=== PATIENT | female | born 1935 | race Caucasian/White ===

== ENCOUNTER 2017-02-15 13:41 | Inpatient (IN) | payer MEDICARE ==
[2017-02-15] MEDS ORDERED: Calcium Gluc 4.6 MEQ/10 ML (100 MG/ML) ONE (13:54)
[2017-02-15] MEDS ORDERED: Sodium Bicarb 50 MEQ/50 ML Abboject 8.4% SYRINGE ONE (14:00)
[2017-02-15 14:13] LABS: Anion Gap 14 mmol/L (-14-95); Lactate 2.04 mmol/L (0.50-2.20); POC Est. GFR-MDRD-African-Amer 34; POC Estimated GFR-MDRD 28; T. Carbon Dioxide 19.4 mmol/L (1.0-85.0); pH (Venous) 7.272 (7.35-7.45); vO2 Saturation-calc 90.5 % (0.0-100.0)
[2017-02-15 14:21] LABS: #Monocytes 0.5 thou/uL (0.11-0.59); #Neutrophils 9.3 thou/uL (1.40-6.50); %Basophils 0.4 % (0.0-1.0); %Eosinophils 0.4 % (0.0-10.0); %Lymphocytes 9.3 % (21.0-51.0); %Monocytes 4.7 % (0.0-10.0); Hematocrit 33.3 % (36.0-47.0); Mean Platelet Volume 9.4 fL (7.4-10.4); Red Blood Cell (RBC) Count 3.33 mill/uL (4.20-5.40); White Blood Cell (WBC) Count 10.9 thou/uL (4.8-10.8)
--- NOTE | 2017-02-15 14:41 | RAD ---
CHEST ONE VIEW: Comparison: 06-03-15 History: Chest pain. FINDINGS: Portable upright chest demonstrates a left sided transvenous defibrillator with lead position in the right atrium, right ventricle and coronary sinus. Heart is enlarged. Pulmonary vessels are prominent. Diffuse interstitial and alveolar opacities. There is no pneumothorax or pleural effusion. IMPRESSION: Congestive heart failure. POS: [facility] [place]
[2017-02-15 14:43] LABS: Lactic Acid - Sepsis 2.9 mmol/L (0.5-2.2)
[2017-02-15 14:47] LABS: ALT (SGPT) 20 U/L (8-55); AST (SGOT) 19 U/L (5-34); Alkaline Phosphatase 64 U/L (40-150); Anion Gap 14 mmol/L (10-20); BUN (Urea Nitrogen) 61 mg/dL (9.8-20.1); Bilirubin, Total 0.4 mg/dL (0.2-1.2); CK (CPK) 47 U/L (29-168); Calc. Creatinine Clearance 0 mL/min (70-130); Calcium 8.3 mg/dL (7.8-10.44); Carbon Dioxide 21 mmol/L (23-31); Chloride 103 mmol/L (98-107); Estimated GFR-MDRD 25; Globulin 2.6 g/dL (2.4-3.5); Lipase 22 U/L (8-78); Protein, Total 5.8 g/dL (6.0-8.3)
[2017-02-15] MEDS ORDERED: Amiodarone HCl 450 MG, Admixture Fee 1 EACH in Dextrose 5% in Water 250 ML IVPB SCH ×3 (15:00)
--- NOTE | 2017-02-15 17:05 | HP ---
PRIMARY CARE PHYSICIAN: Marbin Vieira M.D. REASON FOR ADMISSION: Ventricular tachycardia. HISTORY OF PRESENT ILLNESS: An 81-year-old female who has cardiomyopathy with EF 15% to 20% with AIC D in place as well as moderate tricuspid regurgitation and severe mitral regurgitation. She was brou ght to emergency room with ventricular tachycardia. Patient reports that this morning, she had an appointment with infertility medical assistant. She finished that appoi ntment and she was told that everything was good and subsequently after going from grocery store, she went to her home. At that time, patient was not feeling good on the way to go home. She was feelin g weakness, somehow she made to go her home. She ate her cereal breakfast and she took all her medic ations. Subsequently acutely, she felt all over weakness. She was feeling chest tightness. She was feeling shortness of breath and dizziness and weak. She was not having any energy and that is why s he called her neighbor and neighbor came to her home and they called paramedics. The paramedics came to her home. At that time, she was found with ventricular tachycardia and parame dics attempted vagal maneuver and adenosine, but unable to convert. Subsequently, she was brought to emergency room. This patient has pacemaker and defibrillator. In the emergency room, patient was in ventricular tach ycardia. She was hypotensive. She was hypoxic and Cardiology was consulted and Cardiology cardiover shavonne to sinus rhythm at bedside. Dr. Gomez already saw this patient and Dr. Gomez wanted to observe her in CCU. When I saw this patient at that time, patient was hemodynamically stable. She only complains that she has dyspnea o n exertion which is not new. She also gained several pounds of weight. She also reports orthopnea. She denies any PND. She denies any cough. She denies any fever, chills or flu-like illness. She d enies any constipation or diarrhea. The patient does have problems with hemorrhoid and recently her primary care physician prescribed hemorrhoidal cream and that was helping. She is using oxygen durin g night time. REVIEW OF SYSTEMS: The following complete review of systems was negative, unless otherwise mentioned in the HPI or below: Constitutional: Weight loss or gain, ability to conduct usual activities. Sk in: Rash, itching. Eyes: Double vision, pain. ENT/Mouth: Nose bleeding, neck stiffness, pain, te nderness. Cardiovascular: Palpitations, dyspnea on exertion, orthopnea. Respiratory: Shortness of breath, wheezing, cough, hemoptysis, fever or night sweats. Gastrointestinal: Poor appetite, abdom inal pain, heartburn, nausea, vomiting, constipation, or diarrhea. Genitourinary: Urgency, frequenc y, dysuria, nocturia. Musculoskeletal: Pain, swelling. Neurologic/Psychiatric: Anxiety, depressio n. Allergy/Immunologic: Skin rash, bleeding tendency. Please see my HPI for pertinent positives and negatives. All other review of systems reviewed and ne gative except as mentioned in the HPI. ALLERGIES: BENZOYL PEROXIDE. CURRENT HOME MEDICATIONS: Synthroid 300 mcg p.o. daily, metformin 1000 mg p.o. b.i.d., Coreg 25 mg t wice daily, Eliquis 5 mg p.o. b.i.d., ferrous sulfate 325 mg p.o. daily, Lasix 20 mg p.o. daily, tram adol 50 mg q.8 hourly p.r.n. PAST MEDICAL HISTORY: Ischemic cardiomyopathy with EF 15%-20%, moderate tricuspid regurgitation, sev ere mitral regurgitation, pulmonary hypertension, chronic systolic diastolic heart failure, recurrent ventricular tachycardia, diabetes type 2, hypertension, hypothyroidism, morbid obesity, and physical deconditioning. PAST PSYCHIATRIC HISTORY: Reviewed and negative. PAST SURGICAL HISTORY: AICD placement, left carotid endarterectomy, tubal ligation, and cholecystect lisa. SOCIAL HISTORY: Patient is a former smoker. She quit smoking more than 10 years ago. She denies an y alcohol or other illicit drug abuse. FAMILY HISTORY: Coronary artery disease runs among several family members. No strong family history of cancer or stroke. EMERGENCY ROOM COURSE: Patient is given amiodarone. Patient is given calcium gluconate 3 ampules, s odium bicarbonate and IV fluid. PHYSICAL EXAMINATION: VITAL SIGNS: On arrival, blood pressure 61/36, pulse 129, respiratory rate 21, saturation 93% on 2 l iter oxygen, weight 115.6 kilograms. GENERAL: Patient is currently alert, awake, appears weak. No obvious acute distress, currently bloo d pressure improved. HEENT: Head, normocephalic, atraumatic. Eyes: Pupils round, reactive to light. Extraocular muscle intact. ENT: Oropharynx within normal limits. Moist mucous membranes, no oral lesions, no pharyngeal erythe ma, no exudate. NECK: Supple, no JVD, no thyromegaly, no carotid bruits. LUNGS: Few coarse breath sounds heard. Few basal rales noted. No wheeze, no rhonchi. CARDIAC: S1, S2 appears slightly irregular. Systolic murmur noted at the parasternal area. No gall op, no rub. ABDOMEN: Morbid obesity limiting examination. Bowel sounds present. No peritoneal signs, no guardi ng, no rigidity, no rebound, no suprapubic tenderness. BACK: No CVA tenderness. EXTREMITIES: Upper extremity passive movement of all joints are normal. Lower extremity passive mov ement of all joints are normal. SKIN: No skin rash. Dry skin. HEMATOLOGIC: No lymphadenopathy. PSYCHIATRIC: Normal affect. NEUROLOGIC: Grossly nonfocal examination. She is moving all 4 limbs. SIGNIFICANT LABORATORY DATA: EKG initially showed ventricular tachycardia with rate of 129, nonspeci fic intraventricular conduction delay. Repeat EKG showed pacemaker rhythm. Chest x-ray showed findi ngs suggestive of congestive heart failure. CBC: WBC 10.9, hemoglobin 10.6, platelets 167, MCV 100. INR 1.3. VBG: pH 7.27, bicarbonate 18.2 CO2 39.4, O2 67.4. BMP: Sodium 140, potassium 3.1, chlo ride 108, carbon dioxide 21, BUN 61, creatinine 1.93, glucose 241, calcium 8.3. LFT: AST 19, ALT 20 , alkaline phosphatase 64, albumin 3.2, lipase 22, CK 47, CK-MB 1.1, troponin I 0.050, BNP 162.5. ASSESSMENT AND PLAN: 1. Acute ventricular tachycardia. Currently, converted to pacemaker rhythm with hemodynamic comprom ise. 2. Hypotension, likely due to ventricular tachycardia, improved. 3. Severe cardiomyopathy with ejection fraction 15%-20% with AICD in place. 4. Moderate tricuspid regurgitation. 5. Severe mitral regurgitation. 6. Chronic kidney disease stage 3. 7. Demand ischemia of myocardium. 8. Lactic acidosis due to hypoperfusion. 9. Anemia with macrocytosis. 10. Chronic anticoagulation. 11. Hypokalemia, rule out hypomagnesemia. 12. Morbid obesity. 13. Hypothyroidism. 14. History of hypertension, but currently low blood pressure. 15. History of recurrent ventricular tachycardia. PLAN: 1. The patient will be admitted to CCU/IMCU as per Cardiology recommendation. Amiodarone drip will be continued as per protocol treatment. We will resume patient's elected home medications including Eliquis 5 mg b.i.d., aspirin 325 mg p.o. daily, Coreg 25 mg twice daily if blood pressure permits. W e will also resume Synthroid 300 mcg p.o. daily. We will also resume metformin 1000 mg twice daily a s well as insulin as per sliding scale per protocol. 2. Deep venous thrombosis prophylaxis. The patient is already on chronic anticoagulation with Eliqu is therapy. 3. Gastrointestinal prophylaxis, Pepcid 20 mg p.o. b.i.d. CODE STATUS: I just discussed one more time code status with her. Initially, she said something in the emergency room that she does not want to be CPR or intubation, but when I clarified with her at t hat time she said that if there are chances of survival, then she wanted to be tried like a shock or CPR, but she also expressed that she does not want poor quality of life and she does not want to be o n machine forever, but at least in case if other doctors thinks that she has chances of survival in t hat situation she wanted to try to survive her back to normal life if possible, so we are requesting full code status.
[2017-02-15 17:27] LABS: Bilirubin Negative (Negative); Blood, Urine Small (Negative); Glucose, Urine (Dipstick) Negative (Negative); Ketone, Urine Negative (Negative); Nitrite Negative (Negative); Protein, Urine (Dipstick) 100 mg/dL (Neg-Trace); Urobilinogen 0.2 mg/dL (0.2-1.0)
[2017-02-15 17:29] LABS: Hyaline Casts/LPF 7-10 HYALINE CAST LPF (0-3 Hyaline); Squamous Epithelial 21-50 HPF (0-3)
[2017-02-15 17:44] LABS: Bacteria/HPF 4+ HPF (None Seen); RBC/HPF 0-3 HPF (0-3); Yeast-All Forms None Seen HPF (None Seen)
--- NOTE | 2017-02-15 18:48 | CON ---
DATE OF CONSULTATION: 02/15/2017 REASON FOR CONSULTATION: Wide complex tachycardia. PHYSICIAN REQUESTING CONSULTATION: Kendall Gomez M.D. HISTORY OF PRESENT ILLNESS: Elena Paige is an 81-year-old white woman. She has a history of known cardiomyopathy and known ventricular arrhythmias with ventricular dyssynchrony. She has a resynchron ization defibrillator which was revised as recently as 2014. She came in to the hospital today with hypotension and lightheadedness. She was not syncopal. She was found to be in wide complex rhythm c onsistent with VT. Her defibrillator was interrogated confirming the diagnosis if the VT was occurri ng at 130 beats a minute, which is below the detection cut off for the device, so fell in the monitor zone. The VT was easily pace terminated with 4 paced beats just faster than the detected cycle john th. She is still somewhat hypotensive in the emergency room, but her symptoms are largely resolved. CURRENT MEDICATIONS: See updated list in chart. She has previously been on amiodarone for antiarrhy thmic suppression. Currently, she denies taking amiodarone. She is on appropriate heart failure med ications. FAMILY HISTORY: Significant for coronary artery disease, hypertension, and diabetes. SOCIAL HISTORY: The patient does not smoke, drink heavily or use illicit drugs. REVIEW OF SYSTEMS: Negative 10-point except as outlined in the HPI. PHYSICAL EXAMINATION: VITAL SIGNS: Blood pressure 87/60, pulse is 80 and regular, respirations are 22 and not labored. GENERAL: This is an elderly woman lying in the gurney in the emergency room in no acute distress. HEENT: Shows extraocular muscles are intact. Oropharynx is moist. NECK: Supple. There is no obvious JVD, although exam is difficult because of size. HEART: Demonstrates somewhat faint heart sounds, normal S1, S2. There is a 1/6 holosystolic murmur heard best at the apex. LUNGS: Clear as best can tell, patient cannot sit up for proper examination, but there are no obviou s rales and breath sounds are symmetric. ABDOMEN: Soft, no tenderness or guarding. EXTREMITIES: Show brawny edema. SKIN: Warm and dry. NEUROLOGIC EXAM: Grossly nonfocal. LABORATORY AND X-RAY FINDINGS: Electrocardiogram following termination demonstrates pacing in both t he atrium and the ventricle with biventricular pacing and capture. Device interrogation was reviewed , confirming the patient had relatively slow VT occurring just below the detection cut off for the de vice. The device was reprogrammed to account for this and to treat this with antitachycardia pacing. IMPRESSION: Sustained ventricular tachycardia below the detection cut off for the device. This has led to the patient's decompensation. This has been pace terminated and the programming has been lacey ged to reflect this slower ventricular tachycardia to allow for automatic therapy for this device. RECOMMENDATIONS: 1. Reprogram the device as described above. 2. We will follow as needed if any further arrhythmias occur.
[2017-02-15] MEDS ORDERED: Amiodarone HCl 450 MG in Dextrose 5% in Water 250 ML IVPB SCH ×2 (19:09)
[2017-02-15] MEDS ORDERED: traMADol HCl 50 MG TAB PO PRN (19:09)
[2017-02-15] MEDS ORDERED: Mag-Al 1200 mg/1200 mg/30 ML UDCUP PO PRN (19:09)
[2017-02-15] MEDS ORDERED: Dextrose 5% in Water 1,000 ML IV PRN (19:09)
[2017-02-15] MEDS ORDERED: Milk Of Magnesia 30 ML UDCUP PO PRN (19:09)
[2017-02-15] MEDS ORDERED: HumaLOG 300 UNITS/3 ML VIAL SC PRN ×2 (19:09)
[2017-02-15] MEDS ORDERED: Dextrose 50% Abboject 50 ML SYRINGE SLOW IVP PRN (19:09)
[2017-02-15] MEDS ORDERED: Diabetic Tussin 200 MG/10 ML UDCUP PO PRN (19:09)
[2017-02-15] MEDS ORDERED: Sodium Chloride 0.65% Nasal 44 ML BOT EA NARE PRN (19:09)
[2017-02-15] MEDS ORDERED: Artificial Tears 18 DROP/0.9 ML EA EYE PRN (19:09)
[2017-02-15] MEDS ORDERED: Nitroglycerin 0.4 MG TAB (25 Tab Bottle) SL PRN (19:09)
[2017-02-15] MEDS ORDERED: Chloraseptic Spray 180 ml Bottle PO PRN (19:09)
[2017-02-15] MEDS ORDERED: Senokot 8.6 MG TAB PO PRN (19:09)
[2017-02-15] MEDS ORDERED: Eucerin (Mineral Oil/Petrolatum,White) 30 gm Jar TOP PRN (19:09)
[2017-02-15] MEDS ORDERED: HYDROcodone/Acetaminophen 5/325 mg Tablet PO PRN (19:09)
[2017-02-15] MEDS ORDERED: Zolpidem Tartrate 5 MG TAB PO PRN (19:09)
[2017-02-15] MEDS ORDERED: Loperamide HCl 2 MG CAP PO PRN (19:09)
[2017-02-15] MEDS ORDERED: Loratadine 10 MG TAB PO PRN (19:09)
[2017-02-15] MEDS ORDERED: hydrALAZINE 20 MG/ML VIAL SLOW IVP PRN (19:09)
[2017-02-15 19:11] LABS: Troponin I 0.406 ng/mL (< 0.028)
--- NOTE | 2017-02-15 20:43 | CON ---
DATE OF CONSULTATION: 02/15/2017 CRITICAL CARE NOTE HISTORY OF PRESENT ILLNESS: Patient is an 81-year-old woman who presented with acute onset of diaphoresis, chest discomfort, and dyspnea. The patient has a previous history of a cardiomyopathy. The patient previously had placement of an automatic implantable cardiac defibrillator in 09/2014. The patient has also with a history of atrial fibrillation is on a chronic anticoagulation therapy. The patient has previously been admitted with wide complex thought to be a ventricular tachycardia. She was in her usual state of health when she suddenly again developed rapid palpitations and dyspnea. She presented to the emergency room with a rapid heart rate. PAST MEDICAL HISTORY: 1. Significant for cardiomyopathy. 2. Hypertension. 3. Diabetes mellitus. 4. Hypercholesterolemia. PAST SURGICAL HISTORY: Cholecystectomy. SOCIAL HISTORY: Nonsmoker. FAMILY HISTORY: Positive family history of coronary artery disease. ALLERGIES: None. PHYSICAL EXAMINATION: GENERAL: This is an ill-appearing woman who is hypotensive, blood pressure is 70/50. NECK: Showed no jugular venous distention. LUNGS: Clear to auscultation. HEART: Regular rate and rhythm. Normal S1, S2. ABDOMEN: Distended. EXTREMITIES: Showed mild bilateral edema. LABORATORY STUDIES: Her sodium is 134, potassium 3.5, chloride 103, bicarbonate 21, BUN 61, creatinine is 1.9, troponin was 0.05. BNP 162. Her EKG revealed ventricular tachycardia with a rate of approximately 130. IMPRESSION: 1. Ventricular tachycardia. 2. History of severe cardiomyopathy. 3. Hypertension. 4. Diabetes mellitus. 5. Hypercholesterolemia. This patient presented hypotensive with chest discomfort. She underwent an emergent cardioversion through the automatic implantable cardiac defibrillator. The patient converted to sinus rhythm. Her blood pressure improved. The patient will be monitored in the ICU. IV amiodarone has been started. We will follow this patient with you throughout her hospitalization. We will ask EP to further evaluate. Critical care time 30 minutes. SUKH
[2017-02-15] MEDS ORDERED: Famotidine 20 MG TAB PO SCH (21:00)
[2017-02-15] MEDS: Apixaban 5 MG TAB PO SCH (21:27)
[2017-02-15 21:33] LABS: Troponin I 1.484 ng/mL (< 0.028)
[2017-02-15 21:42] VITALS: BMI 40.2
--- NOTE | 2017-02-15 21:49 | OP ---
PROCEDURE: Electrocardioversion INDICATION: An 81-year-old woman with ventricular tachycardia. PROCEDURE: The patient was pace terminated through her automatic internal implantable cardiac defibrillator and converted to normal sinus rhythm. IMPRESSION: Successful electrocardioversion through the defibrillator. SUKH
--- NOTE | 2017-02-15 22:22 | ADD-ER ---
ADDENDUM DATE OF SERVICE: 02/15/2017 Please refer to the patient's electronic medical record for further details of her visit. In short, the patient presents with a wide complex tachycardia and generalized weakness with associat ed dyspnea. Her blood pressure was in the 60s-70s systolic, though she was awake and alert and able to answer questions. She had palpable peripheral pulses, though they were weak. Because her rate was relatively slow in t he 125-130 range, a consideration was given to the possibility of acute acidosis and/or hyperkalemia as causative. Because of this, the patient was given calcium and bicarbonate. Bedside labs were freeman cked, which showed a mild acidosis with a normal potassium. Record review revealed a similar episode in the past. The patient reports that she does have an AICD, though it is not fired. Just prior to performing cardioversion because of an unstable tachycardia, Dr. Gomez arrived to [facility] patient's bedside and I elected to perform cardioversion via her defibrillator. This was performed by the pacemaker technologist with conversion to an appropriately paced rhythm. Her blood pressure immediately improved, as did her symptoms. She is not septic or toxic appearing, and I did not find evidence of an underlying infectious process. Her lactate is mildly elevated, which is likely due to her hypotension, which likely persisted for several hours prior to arrival. Additionally, her chest x-ray reveals congestive heart failure, which she has a history of, and was likely exacerbated by he r dysrhythmia. She was admitted to the ICU in stable condition, though with a guarded prognosis.
[2017-02-16 01:04] LABS: Troponin I 2.287 ng/mL (< 0.028)
[2017-02-16 05:03] LABS: #Eosinphils 0.1 thou/uL (0.0-0.7); #Lymphocytes 1.4 thou/uL (1.20-3.40); #Monocytes 0.6 thou/uL (0.11-0.59); #Neutrophils 5.1 thou/uL (1.40-6.50); %Basophils 0.2 % (0.0-1.0); %Eosinophils 0.9 % (0.0-10.0); %Lymphocytes 19.4 % (21.0-51.0); %Monocytes 8.7 % (0.0-10.0); Hematocrit 33.2 % (36.0-47.0); Mean Platelet Volume 9.9 fL (7.4-10.4); Red Blood Cell (RBC) Count 3.36 mill/uL (4.20-5.40); White Blood Cell (WBC) Count 7.1 thou/uL (4.8-10.8)
[2017-02-16 05:30] LABS: Anion Gap 13 mmol/L (10-20); BUN (Urea Nitrogen) 68 mg/dL (9.8-20.1); Calc. Creatinine Clearance 38 mL/min (70-130); Calcium 8.8 mg/dL (7.8-10.44); Carbon Dioxide 25 mmol/L (23-31); Chloride 103 mmol/L (98-107); Cholesterol 133 mg/dl (< 200 Desired); Estimated GFR-MDRD 21; LDL Cholesterol, Calculated 73 mg/dL; Magnesium 1.7 mg/dL (1.6-2.6); Phosphorus 4.6 mg/dL (2.3-4.7)
[2017-02-16] MEDS ORDERED: Levothyroxine Sodium 100 MCG TAB PO SCH (06:00)
[2017-02-16] MEDS ORDERED: metFORMIN 500 MG TAB PO SCH (08:00)
[2017-02-16] MEDS ORDERED: cefTRIAXone\\ROCEPHIN 1 GM in Sodium Chloride 0.9% 100 ML IVPB SCH (08:15)
[2017-02-16] MEDS: Cyanocobalamin (Vitamin B-12) 1,000 MCG TAB PO SCH (08:53)
[2017-02-16] MEDS: Apixaban 5 MG TAB PO SCH ×2 (08:53→21:46)
[2017-02-16] MEDS: Folic Acid 1 MG TAB PO SCH (08:53)
[2017-02-16] MEDS: Pantoprazole 40 MG GRANULES PACKET PO SCH ×2 (08:53→08:56)
[2017-02-16] MEDS: Ascorbic Acid 500 mg Chewable Tablet PO SCH (08:54)
[2017-02-16] MEDS: Ferrous Sulfate 325 MG TAB PO SCH (08:54)
[2017-02-16] MEDS ORDERED: Pravastatin Sodium 20 MG TAB PO SCH (09:00)
[2017-02-16] MEDS ORDERED: Non-Formulary Item 1 EACH (Metoprolol Succinate [Metoprolol Succinate] 25 MG) PO SCH (09:00)
[2017-02-16] MEDS ORDERED: Non-Formulary Item 1 EACH (Sacubitril/Valsartan [Entresto 24 Mg-26 Mg Tablet] 1 TAB) PO SCH (09:00)
[2017-02-16] MEDS ORDERED: ASCORBIC ACID 500 MG PO SCH (09:00)
[2017-02-16] MEDS ORDERED: cefTRIAXone\\ROCEPHIN 1 GM, Syringe 0.4 ML in Sterile Water 9.6 ML SLOW IVP SCH (09:00)
[2017-02-16] MEDS: Sacubitril 24.5 MG/Valsartan 25.5 MG TABLET PO SCH ×2 (10:15→21:47)
--- NOTE | 2017-02-16 11:34 | CON ---
DATE OF CONSULTATION: 02/16/2017 CONSULTING PHYSICIAN: Hospitalist Group REASON FOR CONSULTATION: [facility] admission. HISTORY OF PRESENT ILLNESS: Ms. Paige is an 81-year-old female who was admitted last night with pranav tricular tachycardia. She has a known history of cardiomyopathy with an EF of 15-20%. She has a def ibrillator in place that did not go off yesterday. Apparently she spontaneously converted to sinus r hythm while in the emergency room. She was placed in the Intermediate Care last night. She is not e xperiencing shortness of breath or palpitations at this time. PAST MEDICAL HISTORY: 1. Cardiomyopathy. 2. Valvular heart disease 3. Chronic diastolic and systolic heart failure. 4. Ventricular tachycardia. 5. Diabetes mellitus type 2. 6. Hypertension. 7. Hypothyroidism. 8. Morbid obesity. PAST SURGICAL HISTORY: 1. AICD placement. 2. Left carotid endarterectomy. 3. Tubal ligation. 4. Cholecystectomy. SOCIAL HISTORY: Quit smoking more than 10 years ago. Does not consume alcohol. FAMILY MEDICAL HISTORY: Remarkable for coronary artery disease. REVIEW OF SYSTEMS: Otherwise, negative. MEDICATIONS PRIOR TO ADMISSION: Synthroid, metformin, Coreg, Eliquis, iron sulfate, Lasix and tramad ol. PHYSICAL EXAMINATION: VITAL SIGNS: Temperature 98.2, pulse 70, respirations 18, O2 sat 100%, blood pressure 134/62. HEENT: Unremarkable. NECK: No JVD. LUNGS: Clear without wheezing. CARDIAC: S1, S2 regular, pacemaker left upper quadrant. ABDOMEN: Soft, nontender. EXTREMITIES: No edema. LABORATORY DATA: White blood cell count 7.1, hematocrit 33.2, platelet count 120. Sodium 137, potas sium 3.5, BUN 68, creatinine 2.2, glucose 105, troponin 2.8. TSH 14.9. ASSESSMENT: 1. No active pulmonary problems. 2. V-tach with spontaneous conversion. 3. History of ventricular tachycardia. 4. Mildly hypothyroid. 5. Multiple other medical problems. PLAN: She can be transferred to the floor. Further care per Cardiology and Internal Medicine.
--- NOTE | 2017-02-16 11:57 | PDOC.CTH ---
<Shannan Enriquez - Last Filed: 02/16/17 11:53> Cardiology Progress Note - Subjective The pt seen and examined. No overnight events. No cardiac complaints. Up to chair without any difficulties. Complains of chronic back pain. - Objective Vital Signs Temp Pulse Resp BP Pulse Ox 02/16/17 11:22 97.9 F 63 18 121/31 L 97 02/16/17 08:00 98.2 F 70 18 100 02/16/17 07:51 98.2 F 70 18 134/62 100 02/16/17 04:00 98.4 F 61 16 108/44 L 100 02/16/17 00:00 98.1 F 61 16 110/52 L 99 Weight 256 lb 12.8 oz 02/15/17 02/16/17 02/17/17 06:59 06:59 06:59 Intake Total 300 Output Total 650 Balance -350 - Physical Examination General/Neuro: alert & oriented x3 Neck: no JVD present Lungs: other: (diminished at bases) Heart: RRR Extremities: other: (No edemas) - Telemetry Telemetry Rhythm: V paced - Labs Result Diagrams: 02/16/17 03:57 02/16/17 03:57 Troponin/CKMB CK-MB (CK-2) 7.9 ng/mL (0-6.6) H* 02/16/17 00:23 Troponin I 2.287 ng/mL (< 0.028) H* 02/16/17 00:23 - Assessment/Plan 1. S/p Wide complex Tachycardia - Converted back to SR spontaneously; remain SR with well controlled HR; on Amiodarone; cont. monitor on tele 2. Ischemic CMY with BiV AICD - her AICD was reprogrammed yesterday by EP. 3. Combined HF - stable with current medication 4. Hx Afib - on Amiodarone and Eliquis 2.5mg BID 5. HTN - stable with current medication 6. CKD - cont. monitor 7. DM type 2 - ACHS BG check with SS Insulin 8. Hyperlipidemia - on Statin 9. UTI - on IV antibiotic; managed by PCP 10. Hx of Lt CEA - cont. monitor 11. Obese - MAR reviewed Review of Systems - Review of Systems Constitutional: reports: no symptoms reported EENTM: reports: no symptoms reported Respiratory: reports: no symptoms reported Cardiac (ROS): reports: no symptoms reported ABD/GI: reports: no symptoms reported : reports: no symptoms reported Musculoskeletal: reports: no symptoms reported Skin: reports: no symptoms reported Neurological: reports: no symptoms reported <Cuco Aquino - Last Filed: 02/16/17 18:48> Cardiology Progress Note - Objective Vital Signs Temp Pulse Pulse Pulse Resp BP BP 02/16/17 15:32 98.3 F 108 H 20 02/16/17 11:22 97.9 F 63 18 02/16/17 08:55 70 75 107/50 L 133/53 L 02/16/17 08:00 98.2 F 70 18 02/16/17 07:51 98.2 F 70 18 BP Pulse Ox Pulse Ox Pulse Ox 02/16/17 15:32 129/67 78 L 02/16/17 11:22 121/31 L 97 02/16/17 08:55 100 100 02/16/17 08:00 100 02/16/17 07:51 134/62 100 Weight 256 lb 12.8 oz 02/15/17 02/16/17 02/17/17 06:59 06:59 06:59 Intake Total 300 Output Total 650 Balance -350 - Labs Result Diagrams: 02/16/17 03:57 02/16/17 03:57 Troponin/CKMB CK-MB (CK-2) 7.9 ng/mL (0-6.6) H* 02/16/17 00:23 Troponin I 2.287 ng/mL (< 0.028) H* 02/16/17 00:23 - Assessment/Plan Pt. seen and eval. by me. I agree with the A/P by the S[employer] SUPERVISOR. No further V-Tach. seen by EP.
--- NOTE | 2017-02-16 12:58 | PDOC.PN ---
- Subjective Encounter Start Date: 02/16/17 Encounter Start Time: 09:00 -: old records requested/rev Patient seen and examined. No new complaints. No overnight events - Objective Resuscitation Status: Resuscitation Status FULL:Full Resuscitation MAR Reviewed: Yes Vital Signs & Weight: Vital Signs (12 hours) Temp Pulse Resp BP Pulse Ox 02/16/17 11:22 97.9 F 63 18 121/31 L 97 02/16/17 08:00 98.2 F 70 18 100 02/16/17 07:51 98.2 F 70 18 134/62 100 02/16/17 04:00 98.4 F 61 16 108/44 L 100 Weight Weight 256 lb 12.8 oz I&O: 02/15/17 02/16/17 02/17/17 06:59 06:59 06:59 Intake Total 300 Output Total 650 Balance -350 Result Diagrams: 02/16/17 03:57 02/16/17 03:57 Additional Labs: Accuchecks 02/16/17 02/16/17 02/15/17 11:05 05:47 20:17 POC Glucose 132 H 114 H 145 H EKG Reviewed by me: Yes (pacing) Phys Exam - Physical Examination Constitutional: NAD HEENT: PERRLA, moist MMs, sclera anicteric Neck: no JVD, supple Respiratory: no wheezing, no rales, no rhonchi Cardiovascular: RRR, no significant murmur, no rub Gastrointestinal: soft, non-tender, no distention, positive bowel sounds obesity+ Musculoskeletal: no edema, pulses present Neurological: non-focal, normal sensation Lymphatic: no nodes Psychiatric: normal affect, A&O x 3 Skin: no rash, normal turgor Dx/Plan (1) Acute on chronic systolic CHF (congestive heart failure) Code(s): I50.23 - ACUTE ON CHRONIC SYSTOLIC (CONGESTIVE) HEART FAILURE Status : Acute (2) NSTEMI (non-ST elevated myocardial infarction) Code(s): I21.4 - NON-ST ELEVATION (NSTEMI) MYOCARDIAL INFARCTION Status: Acute (3) UTI (urinary tract infection) Status: Acute (4) Afib Code(s): I48.91 - UNSPECIFIED ATRIAL FIBRILLATION Status: Chronic (5) Anemia, macrocytic Code(s): D53.9 - NUTRITIONAL ANEMIA, UNSPECIFIED Status: Chronic (6) CKD (chronic kidney disease) stage 4, GFR 15-29 ml/min Code(s): N18.4 - CHRONIC KIDNEY DISEASE, STAGE 4 (SEVERE) Status: Chronic (7) DM II (diabetes mellitus, type II), controlled Code(s): E11.9 - TYPE 2 DIABETES MELLITUS WITHOUT COMPLICATIONS Status: Chronic (8) Hypertension Code(s): I10 - ESSENTIAL (PRIMARY) HYPERTENSION Status: Chronic (9) Hypothyroidism Code(s): E03.9 - HYPOTHYROIDISM, UNSPECIFIED Status: Chronic (10) Ischemic cardiomyopathy Code(s): I25.5 - ISCHEMIC CARDIOMYOPATHY Status: Chronic (11) Morbid obesity with BMI of 40.0-44.9, adult Code(s): E66.01 - MORBID (SEVERE) OBESITY DUE TO EXCESS CALORIES; Z68.41 - BODY MASS INDEX (BMI) 40.0-44.9, ADULT Status: Chronic - Plan cont current plan of care, continue antibiotics, PT/OT * send urine culture * start rocephin * DC metformin * selected home medication * cardiology following * will start PT * follow urine culture * echo pending * medication reviewed as below * symptomatic treatment. * ok to transfer to tele Review of Systems - Review of Systems ENT: negative: Ear Pain, Ear Discharge, Nose Pain, Nose Discharge, Nose Congestion, Mouth Pain, Mouth Swelling, Throat Pain, Throat Swelling, Other Respiratory: negative: Cough, Dry, Shortness of Breath, Hemoptysis, SOB with Excertion, Pleuritic Pain, Sputum, Wheezing Cardiovascular: negative: Chest Pain, Palpitations, Orthopnea, Paroxysmal Noc. Dyspnea, Edema, Light Headedness, Other Gastrointestinal: negative: Nausea, Vomiting, Abdominal Pain, Diarrhea, Constipation, Melena, Hematochezia, Other Genitourinary: negative: Dysuria, Frequency, Incontinence, Hematuria, Retention , Other Musculoskeletal: negative: Neck Pain, Shoulder Pain, Arm Pain, Back Pain, Hand Pain, Leg Pain, Foot Pain, Other Skin: negative: Rash, Lesions, Selvin, Bruising, Other - Medications/Allergies Allergies/Adverse Reactions: Allergies Allergy/AdvReac Type Severity Reaction Status Date / Time PEROXIDE Allergy Mild itchy Uncoded 02/15/17 21:43 SILK Allergy Mild itch or Uncoded 02/15/17 21:43 sneeze Medications: Current Medications Acetaminophen (Tylenol) 650 mg PO Q4H PRN PRN Reason: Headache/Fever or Pain Hydrocodone Bitart/Acetaminophen ([place] 5/325) 1 tab PO Q4H PRN PRN Reason: Moderate Pain (4-6) Al Hydroxide/Mg Hydroxide (Maalox) 30 ml PO Q6H PRN PRN Reason: Heartburn or Indigestion Apixaban (Eliquis) 2.5 mg PO BID [facility] Last Admin: 02/16/17 08:53 Dose: 2.5 mg Artificial Tears (Tears Naturale) 0 drop EA EYE PRN PRN PRN Reason: Dry Eyes Ascorbic Acid (Vitamin C) 500 mg PO DAILY [facility] Last Admin: 02/16/17 08:54 Dose: 500 mg Aspirin (Aspirin Chewable) 81 mg PO DAILY [facility] Last Admin: 02/16/17 08:54 Dose: 81 mg Cyanocobalamin (Vitamin B-12) 1,000 mcg PO DAILY [facility] Last Admin: 02/16/17 08:53 Dose: 1,000 mcg Dextrose/Water (Dextrose 50%) 25 gm SLOW IVP PRN PRN PRN Reason: Hypoglycemia Ferrous Sulfate (Feosol) 325 mg PO QAM-[facility] Last Admin: 02/16/17 08:54 Dose: 325 mg Folic Acid (Folvite) 1 mg PO DAILY [facility] Last Admin: 02/16/17 08:53 Dose: 1 mg Glucagon (Glucagon) 1 mg IM PRN PRN PRN Reason: Hypoglycemia Guaifenesin (Robitussin Sf) 200 mg PO Q4H PRN PRN Reason: Cough Hydralazine HCl (Apresoline) 10 mg SLOW IVP Q4H PRN PRN Reason: Systolic BP > 180 Amiodarone HCl 450 mg/ (Dextrose/Water) 259 mls @ 0 mls/hr IVPB INF [facility]; Per Protocol PRN Reason: Protocol Dextrose/Water (D5w) 1,000 mls @ 0 mls/hr IV .Q0M PRN; As Directed PRN Reason: Hypoglycemia Ceftriaxone Sodium 1 gm/ (Syringe 0.4 ml/ Sterile Water) 10 mls @ 120 mls/hr SLOW IVP 0900 [facility] Last Admin: 02/16/17 10:15 Dose: 10 mls Insulin Human Lispro (Humalog) 0 units SC .MODERATE SLIDING SC PRN PRN Reason: Moderate Correctional Scale Insulin Human Lispro (Humalog) 0 units SC .BEDTIME SLIDING SC PRN PRN Reason: Bedtime Correctional Scale Levothyroxine Sodium (Synthroid) 200 mcg PO 0600 [facility] Loperamide HCl (Imodium) 2 mg PO PRN PRN PRN Reason: Diarrhea/Loose Stools Loratadine (Claritin) 10 mg PO DAILYPRN PRN PRN Reason: Sinus Symptoms Magnesium Hydroxide (Milk Of Magnesium) 30 ml PO DAILYPRN PRN PRN Reason: Constipation Metoprolol Succinate (Toprol Xl) 25 mg PO DAILY [facility] Last Admin: 02/16/17 08:54 Dose: 25 mg Mineral Oil/White Petrolatum (Eucerin Cream) 0 gm TOP BIDPRN PRN PRN Reason: Dry Skin Nitroglycerin (Nitrostat) 0.4 mg SL Q5MIN PRN PRN Reason: Chest Pain Pantoprazole Sodium (Protonix) 40 mg PO DAILY [facility] Last Admin: 02/16/17 08:56 Dose: Not Given Phenol (Chloraseptic [place] 180 Ml Bot) 0 ml PO PRN PRN PRN Reason: Sore Throat Sacubitril/Valsartan (Entresto 24.5 Mg-25.5 Mg Tablet) 1 tab PO BID [facility] Last Admin: 02/16/17 10:15 Dose: 1 tab Senna (Senokot) 2 tab PO HSPRN PRN PRN Reason: Constipation Simvastatin (Zocor) 10 mg PO HS [facility] Sodium Chloride ([place] Nasal [place] 0.65%) 0 ml EA NARE QIDPRN PRN PRN Reason: Nasal Congestion Sodium Chloride (Flush - Normal Saline) 10 ml IVF Q12HR [facility] Last Admin: 02/16/17 08:54 Dose: 10 ml Sodium Chloride (Flush - Normal Saline) 10 ml IVF PRN PRN PRN Reason: Saline Flush Tramadol HCl (Ultram) 50 mg PO Q8H PRN PRN Reason: Moderate Pain (4-6) Zolpidem Tartrate (Ambien) 5 mg PO HSPRN PRN PRN Reason: Insomnia
[2017-02-16] MEDS: Acetaminophen 325 MG TAB PO PRN ×2 (13:05→21:55)
[2017-02-16] MEDS ORDERED: Simvastatin 5 MG TAB PO SCH (21:00)
[2017-02-17] MEDS ORDERED: Levothyroxine Sodium 100 MCG TAB PO SCH (06:00)
[2017-02-17] MEDS: Ferrous Sulfate 325 MG TAB PO SCH (08:20)
[2017-02-17] MEDS: Folic Acid 1 MG TAB PO SCH (08:20)
[2017-02-17] MEDS: Ascorbic Acid 500 mg Chewable Tablet PO SCH (08:20)
[2017-02-17] MEDS: Cyanocobalamin (Vitamin B-12) 1,000 MCG TAB PO SCH (08:20)
[2017-02-17] MEDS: Apixaban 5 MG TAB PO SCH (08:20)
[2017-02-17] MEDS: Sacubitril 24.5 MG/Valsartan 25.5 MG TABLET PO SCH (08:20)
[2017-02-17] MEDS: Pantoprazole 40 MG GRANULES PACKET PO SCH (08:21)
[2017-02-17] MEDS ORDERED: Cefdinir 300 MG CAP PO SCH (09:00)
--- NOTE | 2017-02-17 10:22 | PDOC.PN ---
- Subjective Encounter Start Date: 02/17/17 Encounter Start Time: 08:00 Patient seen and examined. No new complaints. No overnight events - Objective Resuscitation Status: Resuscitation Status FULL:Full Resuscitation MAR Reviewed: Yes Vital Signs & Weight: Vital Signs (12 hours) Temp Pulse Resp BP Pulse Ox 02/17/17 07:15 98.4 F 77 18 135/78 94 L 02/17/17 04:00 97.7 F 77 16 108/55 L 93 L Weight Weight 267 lb 12.8 oz I&O: 02/16/17 02/17/17 02/18/17 06:59 06:59 06:59 Intake Total 300 850 Output Total 650 0 Balance -350 850 Result Diagrams: 02/16/17 03:57 02/16/17 03:57 Additional Labs: Accuchecks 02/17/17 02/16/17 02/16/17 05:46 15:57 11:05 POC Glucose 155 H 142 H 132 H EKG Reviewed by me: Yes (pacing) Phys Exam - Physical Examination Constitutional: NAD HEENT: PERRLA, moist MMs, sclera anicteric Neck: no JVD, supple Respiratory: no wheezing, no rales, no rhonchi Cardiovascular: RRR, no significant murmur, no rub Gastrointestinal: soft, non-tender, no distention, positive bowel sounds obesity+ Musculoskeletal: no edema, pulses present Neurological: non-focal, normal sensation Psychiatric: normal affect, A&O x 3 Skin: no rash, normal turgor Dx/Plan (1) Acute on chronic systolic CHF (congestive heart failure) Code(s): I50.23 - ACUTE ON CHRONIC SYSTOLIC (CONGESTIVE) HEART FAILURE Status : Acute (2) NSTEMI (non-ST elevated myocardial infarction) Code(s): I21.4 - NON-ST ELEVATION (NSTEMI) MYOCARDIAL INFARCTION Status: Acute (3) UTI (urinary tract infection) Status: Acute (4) Afib Code(s): I48.91 - UNSPECIFIED ATRIAL FIBRILLATION Status: Chronic (5) Anemia, macrocytic Code(s): D53.9 - NUTRITIONAL ANEMIA, UNSPECIFIED Status: Chronic (6) CKD (chronic kidney disease) stage 4, GFR 15-29 ml/min Code(s): N18.4 - CHRONIC KIDNEY DISEASE, STAGE 4 (SEVERE) Status: Chronic (7) DM II (diabetes mellitus, type II), controlled Code(s): E11.9 - TYPE 2 DIABETES MELLITUS WITHOUT COMPLICATIONS Status: Chronic (8) Hypertension Code(s): I10 - ESSENTIAL (PRIMARY) HYPERTENSION Status: Chronic (9) Hypothyroidism Code(s): E03.9 - HYPOTHYROIDISM, UNSPECIFIED Status: Chronic (10) Ischemic cardiomyopathy Code(s): I25.5 - ISCHEMIC CARDIOMYOPATHY Status: Chronic (11) Morbid obesity with BMI of 40.0-44.9, adult Code(s): E66.01 - MORBID (SEVERE) OBESITY DUE TO EXCESS CALORIES; Z68.41 - BODY MASS INDEX (BMI) 40.0-44.9, ADULT Status: Chronic - Plan cont current plan of care, continue antibiotics * change to omnicef * pt does not want new IV * if cardiology ok, will consider discharge * cardiac rehab * pt's NSTEMI is due to ventricular tachycardia * medication reviewed as below * symptomatic treatment. Review of Systems - Review of Systems ENT: negative: Ear Pain, Ear Discharge, Nose Pain, Nose Discharge, Nose Congestion, Mouth Pain, Mouth Swelling, Throat Pain, Throat Swelling, Other Respiratory: negative: Cough, Dry, Shortness of Breath, Hemoptysis, SOB with Excertion, Pleuritic Pain, Sputum, Wheezing Cardiovascular: negative: Chest Pain, Palpitations, Orthopnea, Paroxysmal Noc. Dyspnea, Edema, Light Headedness, Other Gastrointestinal: negative: Nausea, Vomiting, Abdominal Pain, Diarrhea, Constipation, Melena, Hematochezia, Other Genitourinary: negative: Dysuria, Frequency, Incontinence, Hematuria, Retention , Other Musculoskeletal: negative: Neck Pain, Shoulder Pain, Arm Pain, Back Pain, Hand Pain, Leg Pain, Foot Pain, Other Skin: negative: Rash, Lesions, Selvin, Bruising, Other - Medications/Allergies Allergies/Adverse Reactions: Allergies Allergy/AdvReac Type Severity Reaction Status Date / Time PEROXIDE Allergy Mild itchy Uncoded 02/15/17 21:43 SILK Allergy Mild itch or Uncoded 02/15/17 21:43 sneeze Medications: Current Medications Acetaminophen (Tylenol) 650 mg PO Q4H PRN PRN Reason: Headache/Fever or Pain Last Admin: 02/16/17 21:55 Dose: 650 mg Hydrocodone Bitart/Acetaminophen ([place] 5/325) 1 tab PO Q4H PRN PRN Reason: Moderate Pain (4-6) Al Hydroxide/Mg Hydroxide (Maalox) 30 ml PO Q6H PRN PRN Reason: Heartburn or Indigestion Apixaban (Eliquis) 2.5 mg PO BID [facility] Last Admin: 02/17/17 08:20 Dose: 2.5 mg Artificial Tears (Tears Naturale) 0 drop EA EYE PRN PRN PRN Reason: Dry Eyes Ascorbic Acid (Vitamin C) 500 mg PO DAILY [facility] Last Admin: 02/17/17 08:20 Dose: 500 mg Aspirin (Aspirin Chewable) 81 mg PO DAILY [facility] Last Admin: 02/17/17 08:20 Dose: 81 mg Cefdinir (Omnicef) 300 mg PO DAILY [facility] Last Admin: 02/17/17 08:20 Dose: 300 mg Cyanocobalamin (Vitamin B-12) 1,000 mcg PO DAILY [facility] Last Admin: 02/17/17 08:20 Dose: 1,000 mcg Dextrose/Water (Dextrose 50%) 25 gm SLOW IVP PRN PRN PRN Reason: Hypoglycemia Ferrous Sulfate (Feosol) 325 mg PO QAM-[facility] Last Admin: 02/17/17 08:20 Dose: 325 mg Folic Acid (Folvite) 1 mg PO DAILY [facility] Last Admin: 02/17/17 08:20 Dose: 1 mg Glucagon (Glucagon) 1 mg IM PRN PRN PRN Reason: Hypoglycemia Guaifenesin (Robitussin Sf) 200 mg PO Q4H PRN PRN Reason: Cough Hydralazine HCl (Apresoline) 10 mg SLOW IVP Q4H PRN PRN Reason: Systolic BP > 180 Amiodarone HCl 450 mg/ (Dextrose/Water) 259 mls @ 0 mls/hr IVPB INF [facility]; Per Protocol PRN Reason: Protocol Dextrose/Water (D5w) 1,000 mls @ 0 mls/hr IV .Q0M PRN; As Directed PRN Reason: Hypoglycemia Insulin Human Lispro (Humalog) 0 units SC .MODERATE SLIDING SC PRN PRN Reason: Moderate Correctional Scale Insulin Human Lispro (Humalog) 0 units SC .BEDTIME SLIDING SC PRN PRN Reason: Bedtime Correctional Scale Levothyroxine Sodium (Synthroid) 200 mcg PO 0600 [facility] Last Admin: 02/17/17 05:50 Dose: 200 mcg Loperamide HCl (Imodium) 2 mg PO PRN PRN PRN Reason: Diarrhea/Loose Stools Loratadine (Claritin) 10 mg PO DAILYPRN PRN PRN Reason: Sinus Symptoms Magnesium Hydroxide (Milk Of Magnesium) 30 ml PO DAILYPRN PRN PRN Reason: Constipation Metoprolol Succinate (Toprol Xl) 25 mg PO DAILY [facility] Last Admin: 02/17/17 08:20 Dose: 25 mg Mineral Oil/White Petrolatum (Eucerin Cream) 0 gm TOP BIDPRN PRN PRN Reason: Dry Skin Nitroglycerin (Nitrostat) 0.4 mg SL Q5MIN PRN PRN Reason: Chest Pain Pantoprazole Sodium (Protonix) 40 mg PO DAILY [facility] Last Admin: 02/17/17 08:21 Dose: Not Given Phenol (Chloraseptic [place] 180 Ml Bot) 0 ml PO PRN PRN PRN Reason: Sore Throat Sacubitril/Valsartan (Entresto 24.5 Mg-25.5 Mg Tablet) 1 tab PO BID [facility] Last Admin: 02/17/17 08:20 Dose: 1 tab Senna (Senokot) 2 tab PO HSPRN PRN PRN Reason: Constipation Simvastatin (Zocor) 10 mg PO HS [facility] Last Admin: 02/16/17 21:47 Dose: 10 mg Sodium Chloride ([place] Nasal [place] 0.65%) 0 ml EA NARE QIDPRN PRN PRN Reason: Nasal Congestion Sodium Chloride (Flush - Normal Saline) 10 ml IVF Q12HR [facility] Last Admin: 02/17/17 08:21 Dose: Not Given Sodium Chloride (Flush - Normal Saline) 10 ml IVF PRN PRN PRN Reason: Saline Flush Tramadol HCl (Ultram) 50 mg PO Q8H PRN PRN Reason: Moderate Pain (4-6) Zolpidem Tartrate (Ambien) 5 mg PO HSPRN PRN PRN Reason: Insomnia
[2017-02-17 11:56] VITALS: TEMP 97.4
--- NOTE | 2017-02-17 12:42 | DIS ---
DATE OF ADMISSION: 02/15/2017 DATE OF DISCHARGE: 02/17/2017 PRIMARY CARE PHYSICIAN: Dr. Marbin Vieira. DISCHARGE DISPOSITION: Home. PRIMARY DISCHARGE DIAGNOSES: 1. Non-ST elevation myocardial infarction, type 2 due to ventricular tachycardia. 2. Acute on chronic systolic congestive heart failure due to problem #3. 3. Ventricular tachycardia, resolved. 4. Urinary tract infection. SECONDARY DISCHARGE DIAGNOSES: Chronic atrial fibrillation, macrocytic anemia, chronic kidney disease stage 4, diabetes type 2, diet controlled, hypertension, hypothyroidism, ischemic cardiomyopathy, morbid obesity with BMI of 41, chronic systolic heart failure, coronary artery disease. PRIMARY PROCEDURE/OPERATION: Cardioversion was performed by Dr. Gomez. RADIOLOGICAL INVESTIGATION: Chest x-ray on admission showed congestive heart failure. Echocardiography showed EF of 30-35%, diastolic dysfunction, moderate mitral regurgitation. SIGNIFICANT LABS: WBC 7.1, hemoglobin 10.8, platelet 120. INR 1.3. Sodium 137 , potassium 3.5, BUN 68, creatinine 2.20, calcium 8.8, phosphorus 4.6, magnesium 1.7, LDL 73. TSH 14.94. Urinalysis is suggestive of UTI. Urine culture negative. DISCHARGE MEDICATIONS: Allopurinol 100 mg p.o. daily, Cordarone 200 mg p.o. daily, Eliquis 2.5 mg p.o. b.i.d., vitamin C 500 mg p.o. daily, aspirin 81 mg p.o. daily, vitamin B12 1000 mcg p.o. daily, Omnicef 300 mg p.o. daily for 7 days, Colace 100 mg p.o. daily, ferrous sulfate 325 mg p.o. daily, folic acid 1 mg p.o. daily, Lasix 40 mg p.o. b.i.d., Atarax 10 mg p.o. at bedtime, Synthroid 200 mcg p.o. daily, Toprol-XL 25 mg p.o. daily, Protonix 40 mg p.o. daily, pravastatin 20 mg p.o. daily and Entresto 1 tablet p.o. b.i.d. CONTRAINDICATIONS: None. CODE STATUS: FULL CODE. INPATIENT CONSULTANTS: Dr. Romero was consulted while in ICU. Dr. Gomez was consulted for ventricular tachycardia. Dr. Johnson was consulted for reprogramming of AICD. TEST RESULTS PENDING ON DISCHARGE: None. ALLERGIES: No known drug allergies. DISCHARGE PLAN: Post hospital, the patient will follow up with primary care physician on 02/22/2017. The patient is instructed to follow with Dr. Aquino as instructed. HOSPITAL COURSE: An 81-year-old female who went [facility] her regular check and after that she went to the grocery store. She was not feeling good at that time and she was feeling palpitations, chest tightness and pressure sensation, somehow she was able to manage to go home, but at home, her condition was deteriorated and she was having shortness of breath, palpitation and dizziness. Neighbor was called and neighbor called paramedics and the patient was found with ventricular tachycardia. Routine noninvasive measures did not convert her ventricular tachycardia. She was given amiodarone bolus and subsequently she was brought to ER. Patient was hemodynamically unstable. Cardiology did electrical cardioversion under light sedation. Dr. Johnson was consulted and he did reprogramming of AICD. This patient's urinalysis was suggestive of UTI and that is why we started on Rocephin therapy. Overnight, she was admitted in the CCU. Subsequently upon stabilization, this patient was transferred to telemetry floor. Because the patient was in CCU, Dr. Romero saw this patient and Cardiology was following while in hospital. Patient's amiodarone drip was discontinued. Patient does not have any IV access and did not want to put another IV and she wanted to go home today. We changed her Rocephin to Omnicef for UTI. Rest of medication was continued as per previous. At this point, the patient is euvolemic. Patient's NSTEMI and CHF exacerbation was related with her episode of ventricular tachycardia, but once ventricular tachycardia improved, then both problems resolved. She did not have any further chest pain. The patient is seen and examined at bedside today. If Cardiology okay, then we will consider discharging her home per patient request. The patient is seen and examined at bedside today. Please see my progress note from today for further details. Total time spent on discharge day 31 minutes. MTDD
--- NOTE | 2017-02-17 13:08 | PDOC.CTH ---
Cardiology Progress Note - Subjective The pt seen and examined. No overnight events. No cardiac complaints. She is walking with PT at this time without any difficulties. - Objective Vital Signs Temp Pulse Resp BP Pulse Ox 02/17/17 11:20 97.4 F L 75 18 142/61 H 94 L 02/17/17 07:15 98.4 F 77 18 135/78 94 L 02/17/17 04:00 97.7 F 77 16 108/55 L 93 L Weight 267 lb 12.8 oz 02/16/17 02/17/17 02/18/17 06:59 06:59 06:59 Intake Total 300 850 Output Total 650 0 Balance -350 850 - Physical Examination General/Neuro: alert & oriented x3 Neck: no JVD present Lungs: CTA (diminished at bases) Heart: RRR Abdomen: soft Extremities: other: (1+ pitting edema in BLE) - Telemetry Telemetry Rhythm: SR - Labs Result Diagrams: 02/16/17 03:57 02/16/17 03:57 Troponin/CKMB CK-MB (CK-2) 7.9 ng/mL (0-6.6) H* 02/16/17 00:23 Troponin I 2.287 ng/mL (< 0.028) H* 02/16/17 00:23 - Assessment/Plan 1. S/p Wide complex Tachycardia - Converted back to SR spontaneously; remain SR with well controlled HR; on Amiodarone; cont. monitor on tele 2. Ischemic CMY with BiV AICD - her AICD was reprogrammed yesterday by EP. 3. Combined HF - stable with current medication 4. Hx Afib - on Amiodarone 200mg daily and Eliquis 2.5mg BID 5. HTN - stable with current medication 6. CKD - cont. monitor 7. DM type 2 - ACHS BG check with SS Insulin 8. Hyperlipidemia - on Statin 9. UTI - on IV antibiotic; managed by PCP 10. Hx of Lt CEA - cont. monitor 11. Obese - MAR reviewed * The pt is stable to d/joann home; cont. Amiodarone 200mg daily. The pt will f/ u with Dr Aquino' office within 2-4 wks. Thank you very much for cardiology consult request Review of Systems - Review of Systems Constitutional: reports: no symptoms reported EENTM: reports: no symptoms reported Respiratory: reports: no symptoms reported Cardiac (ROS): reports: no symptoms reported ABD/GI: reports: no symptoms reported : reports: no symptoms reported Musculoskeletal: reports: no symptoms reported Skin: reports: no symptoms reported Neurological: reports: no symptoms reported
[2017-02-17 13:43] VITALS: BP 184/84
== END 2017-02-17 14:13 | disposition home health service (06) | DRG 280 ==
LOC: ERS 13:41 → IMCU/EMU 15:21 → 2NO 02-16 20:13
PROVIDERS: ADMIT Internal Medicine; ATTEND Internal Medicine
PROC: 5A2204Z Restoration of Cardiac Rhythm, Single (ICD-10-PCS; principal; 2017-02-15)
DX: I21.A1 Myocardial infarction type 2 (principal); I50.23 Acute on chronic systolic (congestive) heart failure; I47.2 Ventricular tachycardia; N18.4 Chronic kidney disease, stage 4 (severe); E87.2 Acidosis; I95.89 Other hypotension; E11.22 Type 2 diabetes mellitus with diabetic chronic kidney disease; Z68.41 Body mass index [BMI] 40.0-44.9, adult; N39.0 Urinary tract infection, site not specified; I13.0 Hypertensive heart and chronic kidney disease with heart failure and stage 1 through stage 4 chronic kidney disease, or unspecified chronic kidney disease; I48.2 Chronic atrial fibrillation; E03.9 Hypothyroidism, unspecified; E66.01 Morbid (severe) obesity due to excess calories; I25.10 Atherosclerotic heart disease of native coronary artery without angina pectoris; I25.5 Ischemic cardiomyopathy; D53.9 Nutritional anemia, unspecified; Z95.810 Presence of automatic (implantable) cardiac defibrillator; R09.02 Hypoxemia; K64.9 Unspecified hemorrhoids; Z87.891 Personal history of nicotine dependence; I07.1 Rheumatic tricuspid insufficiency; I34.0 Nonrheumatic mitral (valve) insufficiency; E78.00 Pure hypercholesterolemia, unspecified
CPT/HCPCS: 36415; 36416; 71010; 80048; 80053; 80061; 81003; 81015; 82330; 82550; 82553; 82803; 83605; 83690; 83735; 83880; 84100; 84443; 84484; 85025; 85610; 85730; 87086; 93005; 93306; 96365; 96375; 99292; A4216; G8978-GP-CJ; G8979-GP-CH; G8987-GO-CI; G8988-GO-CI; G8989-GO-CI; J0282; J0696; J7070

== ENCOUNTER 2017-09-16 02:04 | Inpatient (IN) | payer MEDICARE ==
[2017-09-16 03:18] LABS: Hemoglobin 11.9 g/dL (12.0-16.0); Mean Corpuscular HGB CONC 33.2 g/dL (32.0-36.0); Mean Corpuscular Hemoglobin 32.4 pg (27.0-31.0); Mean Corpuscular Volume 97.6 fL (78.0-98.0); Red Blood Cell (RBC) Count 3.66 mill/uL (4.20-5.40); White Blood Cell (WBC) Count 11.2 thou/uL (4.8-10.8)
[2017-09-16 03:34] LABS: ALT (SGPT) 18 U/L (8-55); AST (SGOT) 17 U/L (5-34); Albumin 3.7 g/dL (3.4-4.8); Alkaline Phosphatase 83 U/L (40-150); Anion Gap 13 mmol/L (10-20); BUN (Urea Nitrogen) 28 mg/dL (9.8-20.1); Bilirubin, Total 0.5 mg/dL (0.2-1.2); CK (CPK) 50 U/L (29-168); Calc. Creatinine Clearance 0 mL/min (70-130); Carbon Dioxide 22 mmol/L (23-31); Chloride 102 mmol/L (98-107); Estimated GFR-MDRD 43; Globulin 2.9 g/dL (2.4-3.5); Glucose 164 mg/dL (83-110); Potassium 4.2 mmol/L (3.5-5.1); Protein, Total 6.6 g/dL (6.0-8.3); Sodium 133 mmol/L (136-145)
[2017-09-16 03:37] LABS: CKMB 1.2 ng/mL (0-6.6); Troponin I 0.037 ng/mL (< 0.028)
[2017-09-16 03:56] LABS: #Lymphocytes 0.7 thou/uL (1.20-3.40); #Monocytes 0.8 thou/uL (0.11-0.59); #Neutrophils 9.6 thou/uL (1.40-6.50); %Basophils 0.4 % (0.0-1.0); %Eosinophils 0.4 % (0.0-10.0); %Lymphocytes 6.6 % (21.0-51.0); %Monocytes 7.1 % (0.0-10.0); %Neutrophils 85.5 % (42.0-75.0); Mean Platelet Volume 9.1 fL (7.4-10.4); PLT Morphology Comment Appears Decreased; Platelet Count 117 thou/uL (130-400)
[2017-09-16 04:29] LABS: INR-International Normal Ratio 3.2; PTT 63.3 SEC (22.9-36.1); Prothrombin Time 32.9 SEC (12.0-14.7)
--- NOTE | 2017-09-16 08:01 | RAD ---
SINGLE VIEW OF THE CHEST: COMPARISON: 02/15/13. HISTORY: Shortness of breath and dyspnea. FINDINGS: A single view of the chest shows an enlarged but stable cardiomediastinal silhouette. The pacemaker is unchanged in position. Increased interstitial lung markings are present. There may be small bila teral pleural effusions. IMPRESSION: Cardiomegaly and small bilateral pleural effusions. POS: CET
[2017-09-16] MEDS ORDERED: Furosemide 40 MG/4 ML VIAL ONE ×2 (09:43→10:27)
[2017-09-16] MEDS ORDERED: Dexamethasone 10 MG/ML VIAL ONE (10:04)
[2017-09-16] MEDS ORDERED: Nitroglycerin 2% Ointment 1 INCH/1 GM Packet ONE (10:25)
[2017-09-16] MEDS ORDERED: cefTRIAXone\\ROCEPHIN 2 GM VIAL ONE (10:27)
[2017-09-16] MEDS ORDERED: Azithromycin 500 MG VIAL ONE (10:27)
[2017-09-16] MEDS ORDERED: Magnesium Sulfate 2 GM/100 ML BAG ONE (10:27)
[2017-09-16] MEDS ORDERED: Albuterol Sulfate 2.5 mg/0.5 ml Neb ONE (10:52)
[2017-09-16] MEDS ORDERED: Albuterol Sulfate 2.5 mg/3 ml Neb NEB PRN (11:07)
[2017-09-16] MEDS ORDERED: Acetaminophen 325 MG TAB PO PRN (11:07)
[2017-09-16 11:16] LABS: Troponin I 0.062 ng/mL (< 0.028)
[2017-09-16 11:25] LABS: CO2 Tension 42.3 mmHg (35.0-45.0); O2 Tension (PaO2) 120.7 mmHg (> 60.0); pH, Arterial 7.34 (7.35-7.45)
[2017-09-16 11:26] LABS: Actual Bicarbonate (HCO3a) 22.3 mEq/L (22-28); Analyzer IN Cardio ER; Base Excess (BEa) -3.4 mEq/L (-2.0 to +3.0); Calcium, Ionized 1.2 mmol/L (1.12-1.30); Puncture Site L.R.
[2017-09-16 11:27] LABS: ALV-art Gradient 182.925 (0-20)
[2017-09-16] MEDS ORDERED: Metoprolol Tartrate 5 MG/5 ML VIAL ONE (11:38)
[2017-09-16] MEDS ORDERED: cefTRIAXone\\ROCEPHIN 2 GM in Sodium Chloride 0.9% 100 ML IVPB SCH (12:00)
[2017-09-16 12:06] LABS: Bilirubin Negative (Negative); Blood, Urine Negative (Negative); Clarity CLEAR (Clear); Glucose, Urine (Dipstick) Negative (Negative); Leukocyte Negative (Negative); Nitrite Negative (Negative); Protein, Urine (Dipstick) Trace mg/dL (Neg-Trace); Specific Gravity, Urine 1.014 (1.002-1.036); Urobilinogen 0.2 mg/dL (0.2-1.0)
--- NOTE | 2017-09-16 13:01 | CON ---
DATE OF CONSULTATION: 09/16/2017 This consultation encompassed 70 minutes time, of that time, greater than 50% was spent with the pat ient in her room and/or on the patient's unit in the hospital. REASON FOR CONSULTATION: Acute respiratory failure related to congestive heart failure. HISTORY OF PRESENT ILLNESS: Ms. Paige is an 81-year-old female whom I have had the opportunity to s ee on several occasions in the past. She came in last night with increasing shortness of breath. He r x-ray shows fairly marked pulmonary edema. She is currently on BiPAP. [facility] she does not want to be intubated or receive shocks in the event of cardiopulmonary arrest. PAST MEDICAL HISTORY: 1. Cardiomyopathy. She has EF of around 18% on a recent echo. 2. Valvular heart disease. 3. Chronic systolic and diastolic congestive heart failure. 4. Ventricular tachycardia. 5. Diabetes mellitus type 2. 6. Hypertension. 7. Hypothyroidism. 8. Morbid obesity. PAST SURGICAL HISTORY: 1. AICD placement. 2. Left carotid endarterectomy. 3. Tubal ligation. 4. Cholecystectomy. SOCIAL HISTORY: The patient quit smoking back in 1988. Does not consume alcohol. FAMILY MEDICAL HISTORY: Remarkable for coronary artery disease. REVIEW OF SYSTEMS: To my knowledge, she has no previous history of COPD. She says she has not been on any type of inhalers at home and I have never treated her for COPD in the past. MEDICATIONS PRIOR TO ADMISSION: Atarax, Pravachol, Protonix, Synthroid, Lasix, Folvite, iron sulfate , docusate, vitamin B12, aspirin, ascorbic acid, Eliquis, Cordarone, allopurinol. PHYSICAL EXAMINATION: VITAL SIGNS: Pulse is running in the 80s, blood pressure 130/70, respiratory rate 40. GENERAL: The patient is in profound respiratory distress. She is using abdominal accessory muscles. HEENT: Pupils are reactive. Sclerae anicteric. Oropharynx clear. NECK: No JVD. LUNGS: Inspiratory crackles bilaterally. CARDIAC: S1 and S2 regular. A 2/6 murmur at the left sternal border. She has a left-sided palpabl e AICD. ABDOMEN: Soft, obese, nontender. EXTREMITIES: No clubbing, cyanosis. She has trace edema throughout. Her x-ray shows perihilar edema, bilateral small effusions, cardiomegaly. LABORATORY DATA: Sodium 132, potassium 4.2, chloride 102, CO2 22, BUN 28, creatinine 1.2, glucose 16 4, troponin 0.062. BNP 642, pH 7.34, pCO2 42, pO2 120. INR 3.2. White blood cell count 11.2, hemat ocrit 35.7, platelet count 117. ASSESSMENT: 1. Acute systolic congestive heart failure. 2. Acute respiratory failure secondary to congestive heart failure. 3. Cardiomyopathy. 4. I doubt that this is pneumonia. RECOMMENDATIONS: 1. Transfer to CCU and placed on a low dose dobutamine drip. 2. Ask Cardiology to see at their leisure. 3. IV diuresis. 4. BiPAP as needed.
--- NOTE | 2017-09-16 13:34 | CON ---
DATE OF CONSULTATION: 09/16/2017 INDICATION FOR CONSULTATION: An 81-year-old female with congestive heart failure exacerbation, both systolic and diastolic heart failure. HISTORY OF PRESENT ILLNESS: This very unfortunate 81-year-old female who has been followed by me for many, many years. She suffered a myocardial infarction in the left anterior descending artery, occl uded in 1988. She has had a cardiomyopathy since that time, she has undergone AICD implant. She has had multiple episodes of congestive heart failure exacerbations. She recently was seen in [facility] on June of this year and was doing relatively well. She did not have any significant problems, ot herwise has been relatively stable. Her ejection fraction has continued to decrease over the years. Her last ejection fraction by echocardiogram was approximately 30% with moderate left ventricular di latation. At this time, she presented again to the emergency room after she had been eating fried fi sh and drinking too much fluid and became fluid overloaded. She is now in the emergency room on a Bi PAP mask and has been given IV diuretics. She has also been given DuoNeb as well as IV Lasix. She a lso got some steroids in the form of Decadron. She was given magnesium sulfate. She also had a nitr oglycerin patch applied. She was given also p.o. aspirin as well as antibiotics in the form of azith romycin. She also was given metoprolol due to elevated heart rate. At the time she arrived in the e mergency room, the heart rate was 118 with a wide complex tachycardia which most likely was pacing, b ut difficult to determine the ventricular beats. This was performed at 9:55 this morning. EKG was a t 2:30 this morning, which did show ventricular pacing. The second EKG was at 9:55 today, which show ed somewhat wider complex, but there has been no third EKG performed, we may need to evaluate a repea t EKG on Ms. Paige to see whether or not this is improved. Her O2 saturations are stable at this ti mt as well as the blood pressure. She is able to at least converse other than having a BiPAP mask in place. Her cardiac enzymes show a troponin I of 0.037, increased up to 0.062 with a negative MB and a BNP was only 642. Her creatinine is 1.21. PAST MEDICAL AND SURGICAL HISTORY: Significant for the coronary artery disease. She has also had se vi cardiomyopathy. She has an AICD implant. She has a history of diabetes. She has had cholecyst ectomy, bilateral tubal ligation, and tonsillectomy. She has non-insulin dependent diabetes. She echavarria s some mild carotid artery disease. She has had hyperlipidemia, hypothyroidism. She has had a left carotid endarterectomy performed. She actually had a lead extraction performed in the past, also wit h a reimplantation of the lead. MEDICATIONS: Prior to admission included folic acid, Eliquis, iron tablets, pantoprazole, aspirin, a llopurinol, amiodarone, Lasix 40 mg b.i.d., metoprolol 25 mg a day, Tirosint 100 mcg daily, pravastat in 20 mg and Entresto 97/103 mg 1 b.i.d. SOCIAL HISTORY: She is . She has no alcohol or tobacco abuse. I believe she smoked in the p ast. Social history is unremarkable otherwise. FAMILY HISTORY: Noncontributory. ALLERGIES: She is allergic to no known medications. REVIEW OF SYSTEMS: Difficult to obtain as the patient has a BiPAP mask. [facility], she has not had any significant complaints except she does have obesity. She has had probl ems with her weight for many years now, otherwise, review of systems is relatively unremarkable. PHYSICAL EXAMINATION: GENERAL: Reveals an elderly female who is in mild distress. She has a BiPAP mask in place. She is able to converse; however. VITAL SIGNS: Her blood pressure was 126/64, heart rate was 80. She is pacing at 100% in the ventric le. O2 saturation at this time is 100%. HEENT: Head is normocephalic and atraumatic. NECK: Carotid pulses have been present in the past. I cannot hear any significant bruits. CHEST: She does have decreased breath sounds. She does have bibasilar rales noted. CARDIOVASCULAR: Somewhat tachycardic, but regular rhythm, did not hear any gross murmurs at this jay e, the heart sounds are somewhat distant. ABDOMEN: Obese. EXTREMITIES: Showed 1+ lower extremity edema. Pedal pulses are difficult to palpate. NEUROLOGIC: The patient appears to be fully intact. SKIN: Warm and dry. IMPRESSION: 1. Congestive heart failure exacerbation, most likely brought on by increased volume intake and salt y foods. We will need to diurese the patient. We will continue the BiPAP mask at this time. We laurie l give more oxygenation and hopefully she will be able to diurese, may also need to add dobutamine in her case and if she becomes hypotensive, may need also to add dopamine. We will try to increase the cardiac output to diurese this lady, otherwise her ejection fraction has decreased significantly. W e can also obtain another echocardiogram to see if there are any interval changes from her last echoc ardiogram with ejection fraction approximately 30%. 2. History of coronary artery disease. She suffered a large anterior myocardial infarction many yea rs ago and has had ischemic cardiomyopathy since that time. I did not have any other indication that she has any further coronary artery disease. 3. History of diabetes. This will be dealt with by the primary care service. Her blood sugar at th is time is 164. 4. History of thyroid abnormalities. This will also be dealt by the primary care service. Her terra pheral vascular disease in the form of carotid disease appears to be stable. We will continue to mon itor her with you during her hospital course. I think this time I will be able to control her conges tive heart failure and to diurese her.
--- NOTE | 2017-09-16 13:50 | HP ---
DATE OF ADMISSION: 09/16/2017 CHIEF COMPLAINT: Shortness of breath. HISTORY OF PRESENT ILLNESS: This is an 81-year-old white female living independently. She developed some shortness of breath associated with chest discomfort. She came to the ER and she was started o n rebreather mask and she was breathing at 82%. She had a chest x-ray showing an evidence of bilater al pleural effusions with a known history of COPD. The patient did not go to any Pulmonology. The l ast time she was in the hospital was intubated. It was 3 years ago and patient clearly mentioned nona t she did not want to be intubated again. The patient complains of chest congestion at this time. D enies having any chest pain, no nausea, no vomiting. She is barely able to talk in sentences because she is on BiPAP at this time. The patient has known history of ischemic cardiomyopathy with low EF of 15%-25% and moderate tricuspi d regurgitation, history of severe mitral valve regurgitation, pulmonary hypertension chronic diastol ic, systolic heart failure, history of recurrent ventricular tachycardias in the past, type 2 diabete s mellitus, hypertension, hypothyroidism and morbid obesity. PAST SURGICAL HISTORY: 1. AICD placement. 2. Left carotid endarterectomy. 3. Tubal ligation. 4. Cholecystectomy. SOCIAL HISTORY: The patient is a former smoker. She quit smoking more than 10 years ago. No histor y of alcohol, no history of illicit drug use. FAMILY HISTORY: History of coronary artery disease runs in the family. No family history of cancer or stroke. ALLERGIES: BENZOYL PEROXIDE. HOME MEDICATIONS: 1. Allopurinol 100 mg p.o. daily. 2. Amiodarone 200 mg p.o. daily. 3. Eliquis 2.5 mg p.o. b.i.d. 4. Ascorbic acid. 5. Aspirin 81 mg p.o. daily. 6. Cefdinir. 7. Ferrous sulfate 325 mg p.o. daily. 8. Lasix 40 mg p.o. b.i.d. 9. Folic acid 1 mg p.o. daily. 10. Levothyroxine 200 mg p.o. daily. 11. Metoprolol, pantoprazole 40 mg p.o. daily. 12. Pravastatin 20 mg p.o. daily. 13. Sacubitril valsartan one tablet p.o. daily. REVIEW OF SYSTEMS: Could not be obtained as the patient was on BiPAP and unable to comprehend lot of questions. No other family members at the bedside. Code status has been discussed with the family, Angus, who made the decision along with the patient th at she DO NOT WANT TO BE INTUBATED and NOT RESUSCITATED. I spent 30 minutes at the time of this disc ussion about the advance care plan. PHYSICAL EXAMINATION: VITAL SIGNS: Blood pressure 110/88, heart rate is 90, respiratory rate is 22, O2 saturation is 92% o n 30% FiO2, BiPAP 12/5. HEENT: Atraumatic, normocephalic, PERRLA. Extraocular muscles intact. Oral mucosa is pink and mois t. CARDIOVASCULAR: S1, S2 normal. No murmurs, rubs or gallops. LUNGS: Bilateral air entry was equal. No wheezing, no crackles. ABDOMEN: Soft and nontender. No guarding or rebound tenderness. Bowel sounds normal. MUSCULOSKELETAL: No calf tenderness. No pedal edema. EXTREMITIES: No joint tenderness, no joint swelling. SKIN: No cyanosis, no erythema, no rash, no pallor. BOOSTER OPERATOR: Cranial nerve examination II through XII intact. No focal deficits were noted at this time. C NS examination could not done as patient is on BiPAP and not answering most of the questions. LABORATORY DATA: WBC 11.2, hemoglobin 11.9, hematocrit 35.7 and platelets of 117. Blood gases; pH 7 .3, pCO2 of 42.3, pO2 120. Sodium 133, potassium 4.2, chloride 102, BUN is 28, creatinine 1.21, bloo d sugar 164, troponin 0.062, BNP 642. ASSESSMENT AND PLAN: 1. Acute hypoxic respiratory failure. 2. Acute congestive heart failure, systolic dysfunction. 3. Acute on chronic kidney disease stage 3 with cardiorenal syndrome. 4. Non-ST elevation myocardial infarction. 5. Acute chronic obstructive pulmonary disease exacerbation. PLAN: 1. Plan is to closely monitor this patient in the IMCU. We will continue on the BiPAP at this time. I discussed the case with Dr. Romero. We will closely follow his recommendations. Patient has cl ear signs of congestion with elevated BNP and elevated troponins suggestive of CHF exacerbation with known history of systolic heart failure with low EF and with AICD. We will start the patient on Lasi x at 40 mg IV b.i.d. with aggressive diuresis. 2. The patient has a history of smoking, has severe wheezing noted bilaterally both the lungs and AB G seems to be normal with a normal pCO2. At this time, we will continue with the BiPAP to keep the s aturations to 92%-95%. 3. Patient has elevated troponins. We will restart the patient on aspirin, beta blockers, and stati n. Patient is on sacubitril. We will continue with this medication at this time. We will consult C ardiology. 4. Code status has been discussed with the patient. She is DNR/DNI at this time. 5. We will get a 2D echo to look for any evidence of worsening wall motion. I spent 75 minutes with this patient, of this one hour is critical care time.
[2017-09-16] MEDS: Furosemide 40 MG/4 ML VIAL SLOW IVP SCH (15:00)
[2017-09-16 15:21] VITALS: BMI 40.8
[2017-09-16] MEDS: DOBUTamine 500 mg/250 ml 250 ML IVPB SCH (17:15)
[2017-09-16] MEDS: HYDROcodone/Acetaminophen 5/325 mg Tablet PO PRN ×2 (17:43→23:02)
[2017-09-16] MEDS: Apixaban 2.5 MG TAB PO SCH (20:11)
[2017-09-16] MEDS: Carvedilol 3.125 MG TAB PO SCH (20:11)
[2017-09-16] MEDS: Sacubitril 24.5 MG/Valsartan 25.5 MG TABLET PO SCH (20:11)
[2017-09-16] MEDS: Docusate 100 MG CAP PO SCH (20:11)
[2017-09-17 04:00] LABS: #Lymphocytes 0.6 thou/uL (1.20-3.40); #Monocytes 0.4 thou/uL (0.11-0.59); #Neutrophils 7.2 thou/uL (1.40-6.50); %Basophils 0.2 % (0.0-1.0); %Eosinophils 0.1 % (0.0-10.0); %Lymphocytes 6.7 % (21.0-51.0); %Monocytes 5.3 % (0.0-10.0); %Neutrophils 87.7 % (42.0-75.0); Hemoglobin 10.3 g/dL (12.0-16.0); Mean Corpuscular HGB CONC 33.5 g/dL (32.0-36.0); Mean Corpuscular Hemoglobin 32.8 pg (27.0-31.0); Mean Platelet Volume 9.2 fL (7.4-10.4); Platelet Count 116 thou/uL (130-400); Red Blood Cell (RBC) Count 3.13 mill/uL (4.20-5.40); White Blood Cell (WBC) Count 8.2 thou/uL (4.8-10.8)
[2017-09-17 04:14] LABS: Anion Gap 13 mmol/L (10-20); BUN (Urea Nitrogen) 32 mg/dL (9.8-20.1); Calc. Creatinine Clearance 67 mL/min (70-130); Calcium 8.8 mg/dL (7.8-10.44); Carbon Dioxide 23 mmol/L (23-31); Chloride 104 mmol/L (98-107); Estimated GFR-MDRD 41; Glucose 176 mg/dL (83-110); Potassium 3.9 mmol/L (3.5-5.1); Sodium 136 mmol/L (136-145)
[2017-09-17] MEDS: Levothyroxine Sodium 100 MCG TAB PO SCH (05:18)
[2017-09-17] MEDS: Furosemide 40 MG/4 ML VIAL SLOW IVP SCH ×2 (05:19→14:45)
[2017-09-17] MEDS: DOBUTamine 500 mg/250 ml 250 ML IVPB SCH ×2 (05:23→19:50)
[2017-09-17] MEDS: Amiodarone 200 MG TAB PO SCH (08:26)
[2017-09-17] MEDS: Ferrous Sulfate 325 MG TAB PO SCH (08:26)
[2017-09-17] MEDS: Allopurinol 100 MG TAB PO SCH (08:26)
[2017-09-17] MEDS: Ascorbic Acid 500 mg Chewable Tablet PO SCH (08:26)
[2017-09-17] MEDS: Carvedilol 3.125 MG TAB PO SCH ×2 (08:26→22:07)
[2017-09-17] MEDS: Pravastatin Sodium 20 MG TAB PO SCH (08:26)
[2017-09-17] MEDS: Folic Acid 1 MG TAB PO SCH (08:28)
[2017-09-17] MEDS: Sacubitril 24.5 MG/Valsartan 25.5 MG TABLET PO SCH ×2 (08:28→22:07)
[2017-09-17] MEDS: Apixaban 2.5 MG TAB PO SCH ×2 (08:28→22:07)
[2017-09-17] MEDS: Docusate 100 MG CAP PO SCH ×2 (08:28→22:07)
[2017-09-17] MEDS ORDERED: Azithromycin 500 MG in Sodium Chloride 0.9% 250 ML 250 ML IVPB SCH (11:00)
[2017-09-17] MEDS ORDERED: cefTRIAXone\\ROCEPHIN 1 GM, IV Admixture Fee-Chemo 1 UNITS in Sodium Chloride 0.9% 100 ML IVPB SCH (12:00)
--- NOTE | 2017-09-17 13:39 | PRG ---
DATE OF SERVICE: 09/17/2017 SUBJECTIVE: The patient is doing remarkably better today. She is completely off the BiPAP. She is currently on a low dose dobutamine drip. PHYSICAL EXAMINATION: VITAL SIGNS: Temperature 97.8, pulse 76, blood pressure 114/50. A 24-hour intake, her urine o utput from the ER was not quantitated. PHYSICAL EXAMINATION: HEENT EXAM: Unremarkable. NECK: No JVD. LUNGS: Clear anteriorly. CARDIOVASCULAR: S1 and S2, regular. ABDOMEN: Soft. EXTREMITIES: Far less edema than yesterday. LABORATORY DATA: Sodium 136, potassium 3.9, chloride 104, CO2 of 23, BUN 32, creatinine 1.3, glucose 176, BNP 1997. White blood cell count 8.2, hematocrit 30.7, platelet count 116. ASSESSMENT: 1. Acute systolic congestive heart failure. 2. Acute hypoxic respiratory failure, which is better. 3. Cardiomyopathy. PLAN: I would recommend stopping her antibiotics. She can transfer out to the telemetry unit, but I would continue the low dose dobutamine drip for the next 24 hours or so. We will continue to monito r electrolytes and continue to diurese the patient.
--- NOTE | 2017-09-17 14:58 | PDOC.PN ---
- Subjective Encounter Start Date: 09/17/17 Encounter Start Time: 10:00 Lázaro is seen toda, off of Bipap, on NC, she is still on Dobutamine Drip. Stable. - Objective Resuscitation Status: Resuscitation Status DNR:Do Not Resuscitate MAR Reviewed: Yes Vital Signs & Weight: Vital Signs (12 hours) Temp Pulse Resp BP Pulse Ox 09/17/17 14:36 92 L 09/17/17 14:33 68 12 09/17/17 13:01 97.9 F 74 24 H 136/60 93 L 09/17/17 12:00 97.9 F 09/17/17 10:08 75 28 H 93 L 09/17/17 08:00 97.8 F 09/17/17 07:43 97.8 F 78 21 H 98 09/17/17 06:20 78 21 H 96 09/17/17 06:18 98 09/17/17 04:00 97.6 F Weight Weight 261 lb 3.964 oz Most Recent Monitor Data Heart Rate from ECG 76 NIBP 111/63 NIBP BP-Mean 87 Respiration from ECG 17 SpO2 98 I&O: 09/16/17 09/17/17 09/18/17 06:59 06:59 06:59 Intake Total 1043 538 Output Total 830 310 Balance 213 228 Result Diagrams: 09/17/17 03:26 09/17/17 03:26 Radiology Reviewed by me: Yes Phys Exam - Physical Examination HEENT: PERRLA, moist MMs Neck: no nodes, no JVD Respiratory: no wheezing, no rales Cardiovascular: RRR, no significant murmur Gastrointestinal: soft, non-tender Musculoskeletal: no edema, pulses present Neurological: non-focal, normal sensation Lymphatic: no nodes Psychiatric: normal affect Dx/Plan (1) Acute on chronic systolic CHF (congestive heart failure) Code(s): I50.23 - ACUTE ON CHRONIC SYSTOLIC (CONGESTIVE) HEART FAILURE Status : Acute Comment: COntinue with IV lasix 40mg IV BID, Low EF. Cadilogy on board pt on Dobutamine ionotropes (2) NSTEMI (non-ST elevated myocardial infarction) Code(s): I21.4 - NON-ST ELEVATION (NSTEMI) MYOCARDIAL INFARCTION Status: Acute Comment: Demaqnd ischemia, no chest pain, known h/o Ischemic cardiomyopthy, on Aspirn/ BB/ Statin. (3) CKD (chronic kidney disease) stage 4, GFR 15-29 ml/min Code(s): N18.4 - CHRONIC KIDNEY DISEASE, STAGE 4 (SEVERE) Status: Chronic (4) DM II (diabetes mellitus, type II), controlled Code(s): E11.9 - TYPE 2 DIABETES MELLITUS WITHOUT COMPLICATIONS Status: Chronic Comment: SSI stbale, Well controleld. (5) Hypertension Code(s): I10 - ESSENTIAL (PRIMARY) HYPERTENSION Status: Chronic Comment: On Ionotropes now , will hold AceI, other AntiHtn (6) Ischemic cardiomyopathy Code(s): I25.5 - ISCHEMIC CARDIOMYOPATHY Status: Chronic (7) Morbid obesity with BMI of 40.0-44.9, adult Code(s): E66.01 - MORBID (SEVERE) OBESITY DUE TO EXCESS CALORIES; Z68.41 - BODY MASS INDEX (BMI) 40.0-44.9, ADULT Status: Chronic - Plan cont current plan of care, morrison catheter, PT/OT, social worker masters, respiratory therapy, incentive spirometry, out of bed/ambulate, DVT proph w/lovenox * . Review of Systems - Review of Systems Constitutional: negative: fever, chills, sweats, weakness, malaise, other Eyes: negative: Pain, Vision Change, Conjunctivae Inflammation, Eyelid Inflammation, Redness, Other ENT: negative: Ear Pain, Ear Discharge, Nose Pain, Nose Discharge, Nose Congestion, Mouth Pain, Mouth Swelling, Throat Pain, Throat Swelling, Other Respiratory: Cough, Shortness of Breath, SOB with Excertion, Wheezing. negative : Dry, Hemoptysis, Pleuritic Pain, Sputum Cardiovascular: edema. negative: chest pain, palpitations, orthopnea, paroxysmal nocturnal dyspnea, light headedness, other Gastrointestinal: negative: Nausea, Vomiting, Abdominal Pain, Diarrhea, Constipation, Melena, Hematochezia, Other Genitourinary: negative: Dysuria, Frequency, Incontinence, Hematuria, Retention , Other Musculoskeletal: negative: Neck Pain, Shoulder Pain, Arm Pain, Back Pain, Hand Pain, Leg Pain, Foot Pain, Other - Medications/Allergies Allergies/Adverse Reactions: Allergies Allergy/AdvReac Type Severity Reaction Status Date / Time PEROXIDE Allergy Mild itchy Uncoded 02/15/17 21:43 SILK Allergy Mild itch or Uncoded 02/15/17 21:43 sneeze Medications: Current Medications Acetaminophen (Tylenol) 650 mg PO Q4H PRN PRN Reason: Headache/Fever or Pain Hydrocodone Bitart/Acetaminophen (Sesser 5/325) 1 tab PO Q4H PRN PRN Reason: Moderate Pain (4-6) Last Admin: 09/16/17 23:02 Dose: 1 tab Albuterol Sulfate (Ventolin) 2.5 mg NEB [id number] PRN PRN Reason: SOB &/or Wheezing Albuterol/Ipratropium (Duoneb) 3 ml NEB [id number] [facility] Last Admin: 09/17/17 14:33 Dose: 3 ml Allopurinol (Zyloprim) 100 mg PO DAILY [facility] Last Admin: 09/17/17 08:26 Dose: 100 mg Amiodarone HCl (Cordarone) 200 mg PO DAILY [facility] Last Admin: 09/17/17 08:26 Dose: 200 mg Apixaban (Eliquis) 2.5 mg PO BID [facility] Last Admin: 09/17/17 08:28 Dose: 2.5 mg Ascorbic Acid (Vitamin C) 500 mg PO DAILY [facility] Last Admin: 09/17/17 08:26 Dose: 500 mg Aspirin (Aspirin Chewable) 81 mg PO DAILY [facility] Last Admin: 09/17/17 08:28 Dose: 81 mg Carvedilol (Coreg) 3.125 mg PO BID [facility] Last Admin: 09/17/17 08:26 Dose: 3.125 mg Docusate Sodium (Colace) 100 mg PO BID [facility] Last Admin: 09/17/17 08:28 Dose: 100 mg Ferrous Sulfate (Feosol) 325 mg PO QA[facility] Last Admin: 09/17/17 08:26 Dose: 325 mg Folic Acid (Folvite) 1 mg PO DAILY [facility] Last Admin: 09/17/17 08:28 Dose: 1 mg Furosemide (Lasix) 40 mg SLOW IVP 0600,1400 [facility] Last Admin: 09/17/17 14:45 Dose: 40 mg Dobutamine HCl/Dextrose (Dobutamine 500 Mg/250 Ml) 250 mls @ 0 mls/hr IVPB INF [facility]; Per Protocol PRN Reason: Protocol Last Admin: 09/17/17 05:23 Dose: 250 mls Levothyroxine Sodium (Synthroid) 200 mcg PO 0600 [facility] Last Admin: 09/17/17 05:18 Dose: 200 mcg Pravastatin Sodium (Pravachol) 20 mg PO DAILY [facility] Last Admin: 09/17/17 08:26 Dose: 20 mg Sacubitril/Valsartan (Entresto 24.5 Mg-25.5 Mg Tablet) 1 tab PO BID [facility] Last Admin: 09/17/17 08:28 Dose: 1 tab
--- NOTE | 2017-09-17 21:26 | PDOC.CTH ---
<Shannan Enriquez - Last Filed: 09/17/17 21:24> Cardiology Progress Note - Subjective The pt seen and examined. No overnight events. No cardiac complaints. She stated she can breath slightly better today. Complains of constipation. - Objective Vital Signs Temp Pulse Pulse Pulse Resp BP BP 09/17/17 20:00 97.5 F L 84 16 09/17/17 18:44 90 14 09/17/17 16:44 97.7 F 78 20 09/17/17 14:36 09/17/17 14:33 68 12 09/17/17 13:01 97.9 F 74 24 H 09/17/17 12:00 97.9 F 09/17/17 11:26 74 82 143/42 H 141/62 H 09/17/17 10:08 75 28 H BP BP Pulse Ox Pulse Ox Pulse Ox 09/17/17 20:00 127/59 L 93 L 09/17/17 18:44 94 L 09/17/17 16:44 131/62 92 L 09/17/17 14:36 92 L 09/17/17 14:33 09/17/17 13:01 136/60 93 L 09/17/17 12:00 09/17/17 11:26 100 98 09/17/17 10:08 93 L Weight 261 lb 3.964 oz 09/16/17 09/17/17 09/18/17 06:59 06:59 06:59 Intake Total 1043 838 Output Total 830 1210 Balance 213 -372 - Physical Examination General/Neuro: alert & oriented x3 Neck: no JVD present Lungs: other: (very diminished at bases) Heart: RRR Abdomen: soft Extremities: other: (generalized edema) - Telemetry Telemetry Rhythm: V paced - Labs Result Diagrams: 09/17/17 03:26 09/17/17 03:26 Troponin/CKMB CK-MB (CK-2) 1.2 ng/mL (0-6.6) 09/16/17 03:05 Troponin I 0.062 ng/mL (< 0.028) H 09/16/17 10:26 - Assessment/Plan 1. Acute on chronic systolic CHF - gradually improving with Lasix 40mg IV BID, Dobuatmin 2.5mg/kg/min and coreg 6.25mg BID. Will resume Entresto 97/106mg BID when the pt's BP is more stable 2. Ischemic CMY with hx of BiV AICD - Will request AICD interrogation for s/p Wide compmlex tachycardia 3. 1 v CAD with stenosis in LAD - Stable with BBlocker, ASA, Statin 4. HTN - stable 5. CKD - stable 6. DM type 2 - managed by PCP 7. Hyperlipidemia - on Statin 8. S/p Wide complex tachycardia in 02/2017 - the pt's asymptomatic during the episodes. AICD will be interrogated 9. Hx of Lt CEA - cont. to monitor 10. Obese - MAR reviewed * Echo in 06/2017 showed EF 25-30% and grade I diastolic dysfunction. * Dobutamin IV bag will be changed to 1000mg/250ml (The pharmacy must prepare the bag for the pt. Pls call pharmacy for next dose of Dobutamin) . <Cuco Aquino - Last Filed: 09/18/17 22:33> Cardiology Progress Note - Objective Vital Signs Temp Pulse Pulse Pulse Resp BP BP 09/18/17 19:50 98.3 F 80 18 09/18/17 18:54 77 18 09/18/17 16:00 97.4 F L 113 H 18 09/18/17 14:40 82 16 09/18/17 13:15 88 75 135/66 116/74 09/18/17 11:53 97.7 F 82 18 09/18/17 11:26 76 16 BP BP Pulse Ox Pulse Ox Pulse Ox 09/18/17 19:50 149/66 H 93 L 09/18/17 18:54 96 09/18/17 16:00 161/71 H 94 L 09/18/17 14:40 09/18/17 13:15 94 L 94 L 09/18/17 11:53 131/63 93 L 09/18/17 11:26 Weight 275 lb 12.772 oz 09/17/17 09/18/17 09/19/17 06:59 06:59 06:59 Intake Total 4650 080 2950 Output Total 830 1210 2200 Balance 213 -372 223 - Labs Result Diagrams: 09/17/17 03:26 09/18/17 05:11 Troponin/CKMB CK-MB (CK-2) 1.2 ng/mL (0-6.6) 09/16/17 03:05 Troponin I 0.062 ng/mL (< 0.028) H 09/16/17 10:26 - Assessment/Plan Pt. was seen and eval. by me. I have discussed the pt. and agree with the A/P by the VALERIE Enriquez.
[2017-09-18] MEDS: HYDROcodone/Acetaminophen 5/325 mg Tablet PO PRN ×3 (00:12→19:49)
[2017-09-18 05:44] LABS: Anion Gap 13 mmol/L (10-20); BUN (Urea Nitrogen) 37 mg/dL (9.8-20.1); Calc. Creatinine Clearance 68 mL/min (70-130); Calcium 8.8 mg/dL (7.8-10.44); Carbon Dioxide 22 mmol/L (23-31); Chloride 103 mmol/L (98-107); Estimated GFR-MDRD 42; Glucose 153 mg/dL (83-110); Potassium 4.2 mmol/L (3.5-5.1); Sodium 134 mmol/L (136-145)
[2017-09-18] MEDS: Levothyroxine Sodium 100 MCG TAB PO SCH (05:50)
[2017-09-18] MEDS: Furosemide 40 MG/4 ML VIAL SLOW IVP SCH (05:50)
--- NOTE | 2017-09-18 07:41 | PDOC.EVN ---
Event Note - Event Note Event Note: Patient is on Eliquis that was started on admission. I confirmed with Ms Paige. She takes Warfarin at home. Will stop Eliquis and get STAT INR. Will consult Pharmacy to manage Warfarin.
[2017-09-18 08:15] LABS: Prothrombin Time 49.6 SEC (12.0-14.7)
[2017-09-18 08:23] LABS: INR-International Normal Ratio 5.5
[2017-09-18] MEDS: Ascorbic Acid 500 mg Chewable Tablet PO SCH (09:24)
[2017-09-18] MEDS: Docusate 100 MG CAP PO SCH ×2 (09:24→19:50)
[2017-09-18] MEDS: Carvedilol 3.125 MG TAB PO SCH ×2 (09:24→19:50)
[2017-09-18] MEDS: Ferrous Sulfate 325 MG TAB PO SCH (09:24)
[2017-09-18] MEDS: Pravastatin Sodium 20 MG TAB PO SCH (09:24)
[2017-09-18] MEDS: Folic Acid 1 MG TAB PO SCH (09:24)
[2017-09-18] MEDS: Amiodarone 200 MG TAB PO SCH (09:24)
[2017-09-18] MEDS: Allopurinol 100 MG TAB PO SCH (09:24)
[2017-09-18] MEDS: Sacubitril 24.5 MG/Valsartan 25.5 MG TABLET PO SCH ×2 (09:25→19:50)
[2017-09-18] MEDS: DOBUTamine 500 mg/250 ml 250 ML IVPB SCH (10:22)
--- NOTE | 2017-09-18 10:40 | PRG ---
DATE OF SERVICE: 09/18/2017 SUBJECTIVE: Ms. Paige is in better spirits. She said she had a coughing spell last night, but is o therwise doing well. PHYSICAL EXAMINATION: VITAL SIGNS: Temperature 97.8, pulse 86, respirations 12, O2 sat 97% on 3 liters, blood pressure 132 /58. HEENT: Unremarkable. NECK: No JVD. LUNGS: Fairly clear anteriorly. CARDIOVASCULAR: S1 and S2 is regular. ABDOMEN: Soft. EXTREMITIES: Decreased edema. LABORATORY DATA: Sodium 134, potassium 4.2, chloride 103, CO2 of 22, BUN 37, creatinine 1.2, glucose 153. BNP is 828. Her INR is 5.5. ASSESSMENT: 1. Congestive heart failure - acute on chronic systolic failure. 2. Status post hypoxic respiratory failure. PLAN: The patient's progress is encouraging on the dobutamine drip. I would probably continue the d obutamine for another 24 hours and then stop that. The INR is of no consequence as the patient is on Eliquis, making the INR invalid. I would probably wait until tomorrow until Eliquis has worn off to start the warfarin or just go ahead and make the commitment to change her over to Eliquis, whatever we feel is best.
--- NOTE | 2017-09-18 13:38 | PDOC.CTH ---
<Shannan Enriquez - Last Filed: 09/18/17 13:34> Cardiology Progress Note - Subjective The pt seen and examined. No overnight events. She stated she feels much better today. - Objective Vital Signs Temp Pulse Resp BP Pulse Ox 09/18/17 11:53 97.7 F 82 18 131/63 93 L 09/18/17 11:26 76 16 09/18/17 08:15 97.8 F 86 12 96 09/18/17 08:11 97 09/18/17 08:10 86 12 09/18/17 08:00 97.8 F 90 18 132/58 L 96 09/18/17 02:30 85 16 96 Weight 275 lb 12.772 oz 09/17/17 09/18/17 09/19/17 06:59 06:59 06:59 Intake Total 1043 838 503 Output Total 830 1210 900 Balance 240 -478 -202 - Physical Examination General/Neuro: alert & oriented x3 Neck: no JVD present Lungs: CTA (very diminished at bases) Heart: RRR Abdomen: soft Extremities: other: (2+ pitting BLE edema) - Labs Result Diagrams: 09/17/17 03:26 09/18/17 05:11 Troponin/CKMB CK-MB (CK-2) 1.2 ng/mL (0-6.6) 09/16/17 03:05 Troponin I 0.062 ng/mL (< 0.028) H 09/16/17 10:26 - Assessment/Plan 1. Acute on chronic systolic CHF - gradually improving with Lasix 40mg IV BID, Dobuatmin 2.5mg/kg/min and coreg 6.25mg BID. Will resume Entresto 97/106mg BID when the pt's BP is more stable 2. Ischemic CMY with hx of BiV AICD - Will request AICD interrogation for s/p Wide compmlex tachycardia 3. 1 v CAD with stenosis in LAD - Stable with BBlocker, ASA, Statin 4. HTN - stable 5. CKD - stable 6. DM type 2 - managed by PCP 7. Hyperlipidemia - on Statin 8. S/p Wide complex tachycardia in 02/2017 - the pt's asymptomatic during the episodes. AICD will be interrogated 9. Hx of Lt CEA - cont. to monitor 10. Obese - MAR reviewed * Echo in 06/2017 showed EF 25-30% and grade I diastolic dysfunction. * Dobutamin IV bag will be changed to 1000mg/250ml (The pharmacy must prepare the bag for the pt. Pls call pharmacy for next dose of Dobutamin) . Review of Systems - Review of Systems Constitutional: reports: no symptoms reported EENTM: reports: no symptoms reported Respiratory: reports: no symptoms reported Cardiac (ROS): reports: no symptoms reported ABD/GI: reports: no symptoms reported : reports: no symptoms reported Musculoskeletal: reports: no symptoms reported <Cuco Aquino - Last Filed: 09/18/17 22:33> Cardiology Progress Note - Objective Vital Signs Temp Pulse Pulse Pulse Resp BP BP 09/18/17 19:50 98.3 F 80 18 09/18/17 18:54 77 18 09/18/17 16:00 97.4 F L 113 H 18 09/18/17 14:40 82 16 09/18/17 13:15 88 75 135/66 116/74 09/18/17 11:53 97.7 F 82 18 09/18/17 11:26 76 16 BP BP Pulse Ox Pulse Ox Pulse Ox 09/18/17 19:50 149/66 H 93 L 09/18/17 18:54 96 09/18/17 16:00 161/71 H 94 L 09/18/17 14:40 09/18/17 13:15 94 L 94 L 09/18/17 11:53 131/63 93 L 09/18/17 11:26 Weight 275 lb 12.772 oz 09/17/17 09/18/17 09/19/17 06:59 06:59 06:59 Intake Total 6186 328 9836 Output Total 830 1210 2200 Balance 213 -372 223 - Labs Result Diagrams: 09/17/17 03:26 09/18/17 05:11 Troponin/CKMB CK-MB (CK-2) 1.2 ng/mL (0-6.6) 09/16/17 03:05 Troponin I 0.062 ng/mL (< 0.028) H 09/16/17 10:26 - Assessment/Plan Pt. was seen and eval. by me. I have discussed the pt. and agree with the A/P by the VISITOR SERVICES TECHNICIAN Zoe.
[2017-09-18] MEDS ORDERED: SODIUM CHLORIDE 0.9% IVPB SCH (14:00)
[2017-09-18] MEDS ORDERED: DOBUTAMINE IVPB SCH (14:00)
--- NOTE | 2017-09-18 16:41 | PDOC.PN ---
- Subjective Encounter Start Date: 09/18/17 Encounter Start Time: 15:20 Patient seen and examined for CHF. No new complaints. Feels better. No CP/SOB. No overnight events - Objective Resuscitation Status: Resuscitation Status DNR:Do Not Resuscitate MAR Reviewed: Yes Vital Signs & Weight: Vital Signs (12 hours) Temp Pulse Pulse Pulse Resp BP BP 09/18/17 14:40 82 16 09/18/17 13:15 88 75 135/66 116/74 09/18/17 11:53 97.7 F 82 18 09/18/17 11:26 76 16 09/18/17 08:15 97.8 F 86 12 09/18/17 08:11 09/18/17 08:10 86 12 09/18/17 08:00 97.8 F 90 18 BP Pulse Ox Pulse Ox Pulse Ox 09/18/17 14:40 09/18/17 13:15 94 L 94 L 09/18/17 11:53 131/63 93 L 09/18/17 11:26 09/18/17 08:15 96 09/18/17 08:11 97 09/18/17 08:10 09/18/17 08:00 132/58 L 96 Weight Weight 275 lb 12.772 oz Most Recent Monitor Data Heart Rate from ECG 76 NIBP 111/63 NIBP BP-Mean 87 Respiration from ECG 17 SpO2 98 I&O: 09/17/17 09/18/17 09/19/17 06:59 06:59 06:59 Intake Total 1043 838 503 Output Total 830 1210 900 Balance 300 -883 -487 Result Diagrams: 09/19/17 04:49 09/19/17 04:49 Additional Labs: Accuchecks 09/17/17 22:13 POC Glucose 184 H EKG Reviewed by me: Yes (Tele paced) Phys Exam - Physical Examination Constitutional: NAD Respiratory: no wheezing, no rhonchi Cardiovascular: RRR, no rub Gastrointestinal: soft, non-tender, positive bowel sounds Musculoskeletal: no edema Neurological: moves all 4 limbs Dx/Plan - Plan IMPRESSION: 1. Acute hypoxic respiratory failure s/p NIPPV due to CHF exacerbation 2. Acute on chronic systolic/diastolic heart failure (EF 25-30%) 3. CAD/Ischemic CM s/p AICD 4. HTN 5. Chronic A fib on Warfarin - INR supratherapeutic on admisson 6. CKD 3/DM 2/HLD/Morbid obesity BMI 43/DNR / Hypothyroidism PLAN: PT/INR today and daily DC Eliquis - Patient takes Warfarin at home and is requesting to continue Warfarin Cont IV Lasix with Dobutamine drip Cont Coreg/Entresto Cont other meds as below AM labs Will resume Warfarin at 3 mg daily since INR may not be accurate due to Eliquis Review of Systems - Review of Systems Respiratory: negative: Cough, Dry, Shortness of Breath, Hemoptysis, SOB with Excertion, Pleuritic Pain, Sputum, Wheezing Cardiovascular: negative: chest pain, palpitations, orthopnea, paroxysmal nocturnal dyspnea, edema, light headedness, other Gastrointestinal: negative: Nausea, Vomiting, Abdominal Pain, Diarrhea, Constipation, Melena, Hematochezia, Other - Medications/Allergies Allergies/Adverse Reactions: Allergies Allergy/AdvReac Type Severity Reaction Status Date / Time PEROXIDE Allergy Mild itchy Uncoded 02/15/17 21:43 SILK Allergy Mild itch or Uncoded 02/15/17 21:43 sneeze Medications: Current Medications Acetaminophen (Tylenol) 650 mg PO Q4H PRN PRN Reason: Headache/Fever or Pain Hydrocodone Bitart/Acetaminophen ([place] 5/325) 1 tab PO Q4H PRN PRN Reason: Moderate Pain (4-6) Last Admin: 09/18/17 09:29 Dose: 1 tab Albuterol Sulfate (Ventolin) 2.5 mg NEB [id number] PRN PRN Reason: SOB &/or Wheezing Albuterol/Ipratropium (Duoneb) 3 ml NEB [id number] [facility] Last Admin: 09/18/17 14:40 Dose: 3 ml Allopurinol (Zyloprim) 100 mg PO DAILY [facility] Last Admin: 09/18/17 09:24 Dose: 100 mg Amiodarone HCl (Cordarone) 200 mg PO DAILY [facility] Last Admin: 09/18/17 09:24 Dose: 200 mg Ascorbic Acid (Vitamin C) 500 mg PO DAILY [facility] Last Admin: 09/18/17 09:24 Dose: 500 mg Aspirin (Aspirin Chewable) 81 mg PO DAILY [facility] Last Admin: 09/18/17 09:24 Dose: 81 mg Carvedilol (Coreg) 3.125 mg PO BID [facility] Last Admin: 09/18/17 09:24 Dose: 3.125 mg Docusate Sodium (Colace) 100 mg PO BID [facility] Last Admin: 09/18/17 09:24 Dose: 100 mg Ferrous Sulfate (Feosol) 325 mg PO QAM-WM [facility] Last Admin: 09/18/17 09:24 Dose: 325 mg Folic Acid (Folvite) 1 mg PO DAILY [facility] Last Admin: 09/18/17 09:24 Dose: 1 mg Furosemide (Lasix) 40 mg SLOW IVP DAILY [facility] Dobutamine HCl 1,000 mg/ (Sodium Chloride) 250 mls @ 4.69 mls/hr IVPB INF [facility] Last Admin: 09/18/17 14:54 Dose: 250 mls Levothyroxine Sodium (Synthroid) 200 mcg PO 0600 [facility] Last Admin: 09/18/17 05:50 Dose: 200 mcg Miscellaneous Medication (Pharmacy To Dose) 1 each PO .WARFARIN [facility] Pravastatin Sodium (Pravachol) 20 mg PO DAILY [facility] Last Admin: 09/18/17 09:24 Dose: 20 mg Sacubitril/Valsartan (Entresto 24.5 Mg-25.5 Mg Tablet) 1 tab PO BID [facility] Last Admin: 09/18/17 09:25 Dose: 1 tab Sodium Chloride (Flush - Normal Saline) 10 ml IVF Q12HR [facility] Sodium Chloride (Flush - Normal Saline) 10 ml IVF PRN PRN PRN Reason: Saline Flush
[2017-09-18] MEDS ORDERED: Loratadine 10 MG TAB PO PRN (16:44)
[2017-09-18] MEDS: guaiFENesin ER 600 MG TAB PO SCH (19:50)
[2017-09-19] MEDS: HYDROcodone/Acetaminophen 5/325 mg Tablet PO PRN ×2 (05:16→21:03)
[2017-09-19] MEDS: Levothyroxine Sodium 100 MCG TAB PO SCH (05:16)
[2017-09-19 05:51] LABS: Anion Gap 13 mmol/L (10-20); BUN (Urea Nitrogen) 34 mg/dL (9.8-20.1); Calc. Creatinine Clearance 71 mL/min (70-130); Calcium 8.9 mg/dL (7.8-10.44); Carbon Dioxide 25 mmol/L (23-31); Chloride 102 mmol/L (98-107); Estimated GFR-MDRD 41; Glucose 141 mg/dL (83-110); Magnesium 1.9 mg/dL (1.6-2.6); Potassium 4.2 mmol/L (3.5-5.1); Sodium 136 mmol/L (136-145)
[2017-09-19 06:01] LABS: Hemoglobin 10.2 g/dL (12.0-16.0); Platelet Count 128 thou/uL (130-400)
[2017-09-19 06:18] LABS: INR-International Normal Ratio 3.4
[2017-09-19] MEDS: Ascorbic Acid 500 mg Chewable Tablet PO SCH (09:23)
[2017-09-19] MEDS: Amiodarone 200 MG TAB PO SCH (09:23)
[2017-09-19] MEDS: Ferrous Sulfate 325 MG TAB PO SCH (09:23)
[2017-09-19] MEDS: Carvedilol 3.125 MG TAB PO SCH ×2 (09:23→21:02)
[2017-09-19] MEDS: Docusate 100 MG CAP PO SCH ×2 (09:23→21:42)
[2017-09-19] MEDS: Allopurinol 100 MG TAB PO SCH (09:23)
[2017-09-19] MEDS: Sacubitril 24.5 MG/Valsartan 25.5 MG TABLET PO SCH ×2 (09:23→21:02)
[2017-09-19] MEDS: Furosemide 40 MG/4 ML VIAL SLOW IVP SCH (09:24)
[2017-09-19] MEDS: guaiFENesin ER 600 MG TAB PO SCH ×2 (09:24→21:02)
[2017-09-19] MEDS: Pravastatin Sodium 20 MG TAB PO SCH (09:24)
[2017-09-19] MEDS: Folic Acid 1 MG TAB PO SCH (09:24)
--- NOTE | 2017-09-19 10:51 | PRG ---
DATE OF SERVICE: 09/19/2017 The patient is feeling better. She had no acute complaints. PHYSICAL EXAMINATION: VITAL SIGNS: Temperature is 97.7, pulse 72, respirations 18, O2 sat 97% on 2 liters, blood pressure 143/65. Total intake for 24 hours 307, output 3200. HEENT: Unremarkable. NECK: No JVD. LUNGS: A few inspiratory crackles in the bases. CARDIAC: S1 and S2 regular. ABDOMEN: Soft. EXTREMITIES: No edema. LABORATORY DATA: Sodium 136, potassium 4.2, chloride 102, CO2 25, BUN 34, creatinine 1.2, glucose 14 1. Hemoglobin 10.2, hematocrit 30.7, platelet count 128. ASSESSMENT: 1. Systolic congestive heart failure. 2. Acute hypoxic respiratory failure. PLAN: She is better and I think we can to discontinue the dobutamine. We will discontinue her Cason . If she does well today, then she can probably go home soon. Her INR is 3.4. She is currently on Coumadin and was also on Eliquis recently so I am not sure how accurate the INR is at this point. We can probably trend this lab to tomorrow.
--- NOTE | 2017-09-19 11:40 | PQF ---
CLINICAL DOCUMENTATION IMPROVEMENT CLARIFICATION FORM: ICD-10 Updated PLEASE DO AN ADDENDUM TO THE PROGRESS NOTE WITH ANY DOCUMENTATION UPDATES OR ADDITIONS AND CARRY THROUGH TO DC SUMMARY. THANK YOU. DATE: 09/19/17 ATTN: DR. DRUMMOND Please exercise your independent, professional judgment in responding to the clarification form. Clinical indicators are provided on the bottom of this form for your review Please check appropriate box(s) to clarify if the following diagnosis has been ruled in or ruled out: NSTEMI [ ] Ruled in diagnosis [ ] Continue to treat [ ] Resolved [ x ] Ruled out diagnosis [ ] Cannot rule out diagnosis [ ] Other diagnosis [ ] Unable to determine In addition, please specify: Present on Admission (POA): [ ] Yes [ ] No [ ] Unable to determine For continuity of documentation, please document condition throughout progress notes and discharge summary. Thank You. CLINICAL INDICATORS - SIGNS / SYMPTOMS / LABS H&P: "NON-ST ELEVATION MYOCARDIAL INFARCTION" RISKS: HYPERTENSION CKD CHRONIC AFIB CHF TREATMENT: CARDIOLOGY CONSULT TELEMETRY MONITORING ASPIRIN (09/17-PRESENT) (This form is maintained as a part of the permanent medical record) 2014 [employer] All Rights Reserved MTDD
--- NOTE | 2017-09-19 15:46 | PDOC.CTH ---
<Shannan Enriquez - Last Filed: 09/19/17 15:49> Cardiology Progress Note - Subjective The pt seen and examined. No overnight events. No cardiac complaints. She is up to chair and morrison is most out. - Objective Vital Signs Temp Pulse Pulse Pulse Resp BP BP 09/19/17 13:38 93 20 09/19/17 11:52 97.5 F L 76 18 09/19/17 10:42 82 18 09/19/17 09:41 86 90 139/66 121/58 L 09/19/17 08:00 97.7 F 73 18 09/19/17 07:49 97.7 F 73 18 09/19/17 06:51 09/19/17 06:49 76 16 09/19/17 04:05 97.7 F 80 24 H BP BP Pulse Ox Pulse Ox Pulse Ox 09/19/17 13:38 94 L 09/19/17 11:52 152/72 H 92 L 09/19/17 10:42 93 L 09/19/17 09:41 98 92 L 09/19/17 08:00 97 09/19/17 07:49 143/65 H 97 09/19/17 06:51 95 09/19/17 06:49 95 09/19/17 04:05 126/58 L 98 Weight 271 lb 2.697 oz 09/18/17 09/19/17 09/20/17 06:59 06:59 06:59 Intake Total 838 3079.4 Output Total 1210 3200 450 Balance -372 -120.6 -450 - Physical Examination General/Neuro: alert & oriented x3 Neck: no JVD present Lungs: other: (diminished at bases) Heart: RRR Abdomen: soft Extremities: other: (V paced) - Labs Result Diagrams: 09/19/17 04:49 09/19/17 04:49 Troponin/CKMB CK-MB (CK-2) 1.2 ng/mL (0-6.6) 09/16/17 03:05 Troponin I 0.062 ng/mL (< 0.028) H 09/16/17 10:26 - Assessment/Plan 1. Acute on chronic systolic CHF - gradually improving with Lasix 40mg IV BID, and coreg 6.25mg BID. On Dobuatmin 2.5mg/kg/min which d/joann. Will resume Entresto 97/106mg BID when the pt's BP is more stable 2. Ischemic CMY with hx of BiV AICD - Will request AICD interrogation for s/p Wide compmlex tachycardia 3. 1 v CAD with stenosis in LAD - Stable with BBlocker, ASA, Statin 4. HTN - stable 5. CKD - stable 6. DM type 2 - managed by PCP 7. Hyperlipidemia - on Statin 8. S/p Wide complex tachycardia in 02/2017 - the pt's asymptomatic during the episodes. AICD will be interrogated 9. Hx of Lt CEA - cont. to monitor 10. Obese - MAR reviewed * Echo in 06/2017 showed EF 25-30% and grade I diastolic dysfunction. * Stopped Dobutamin drip. Review of Systems - Review of Systems Constitutional: reports: no symptoms reported EENTM: reports: no symptoms reported Respiratory: reports: shortness of breath Cardiac (ROS): reports: no symptoms reported ABD/GI: reports: no symptoms reported : reports: no symptoms reported Musculoskeletal: reports: no symptoms reported <Cuco Aquino - Last Filed: 09/19/17 18:40> Cardiology Progress Note - Objective Vital Signs Temp Pulse Pulse Pulse Resp BP BP 09/19/17 18:21 78 20 09/19/17 16:20 98.8 F 78 18 09/19/17 13:38 93 20 09/19/17 11:52 97.5 F L 76 18 09/19/17 10:42 82 18 09/19/17 09:41 86 90 139/66 121/58 L 09/19/17 08:00 97.7 F 73 18 09/19/17 07:49 97.7 F 73 18 09/19/17 06:51 09/19/17 06:49 76 16 BP BP Pulse Ox Pulse Ox Pulse Ox 09/19/17 18:21 93 L 09/19/17 16:20 137/72 93 L 09/19/17 13:38 94 L 09/19/17 11:52 152/72 H 92 L 09/19/17 10:42 93 L 09/19/17 09:41 98 92 L 09/19/17 08:00 97 09/19/17 07:49 143/65 H 97 09/19/17 06:51 95 09/19/17 06:49 95 Weight 271 lb 2.697 oz 09/18/17 09/19/17 09/20/17 06:59 06:59 06:59 Intake Total 838 3079.4 960 Output Total 1210 3200 1225 Balance -372 -120.6 -265 - Labs Result Diagrams: 09/19/17 04:49 09/19/17 04:49 Troponin/CKMB CK-MB (CK-2) 1.2 ng/mL (0-6.6) 09/16/17 03:05 Troponin I 0.062 ng/mL (< 0.028) H 09/16/17 10:26 - Assessment/Plan Pt. seen and eval. I agree with the A/P by the CHROME TANNER>We have discussed the pt and plan.Chest clear,RRR.
[2017-09-19] MEDS: Warfarin Sodium 3 MG TAB PO SCH (17:00)
--- NOTE | 2017-09-19 22:06 | PDOC.PN ---
- Subjective Encounter Start Date: 09/19/17 Encounter Start Time: 17:30 Patient seen and examined for CHF exacerbation. Off Dobutamine. Kamla crouch. No new complaints. No overnight events - Objective Resuscitation Status: Resuscitation Status DNR:Do Not Resuscitate MAR Reviewed: Yes Vital Signs & Weight: Vital Signs (12 hours) Temp Pulse Resp BP Pulse Ox 09/19/17 18:21 78 20 93 L 09/19/17 16:20 98.8 F 78 18 137/72 93 L 09/19/17 13:38 93 20 94 L 09/19/17 11:52 97.5 F L 76 18 152/72 H 92 L 09/19/17 10:42 82 18 93 L Weight Weight 271 lb 2.697 oz Most Recent Monitor Data Heart Rate from ECG 76 NIBP 111/63 NIBP BP-Mean 87 Respiration from ECG 17 SpO2 98 I&O: 09/18/17 09/19/17 09/20/17 06:59 06:59 06:59 Intake Total 838 3079.4 960 Output Total 1210 3200 1225 Balance -372 -120.6 -265 Result Diagrams: 09/19/17 04:49 09/19/17 04:49 EKG Reviewed by me: Yes (Tele paced) Phys Exam - Physical Examination Constitutional: NAD Respiratory: no wheezing, no rhonchi Cardiovascular: RRR, no rub Gastrointestinal: soft, non-tender, positive bowel sounds Musculoskeletal: no edema Neurological: moves all 4 limbs Dx/Plan - Plan IMPRESSION: 1. Acute hypoxic respiratory failure s/p NIPPV due to CHF exacerbation 2. Acute on chronic systolic/diastolic heart failure (EF 25-30%) 3. CAD/Ischemic CM s/p AICD 4. HTN 5. Chronic A fib on Warfarin at home - INR supratherapeutic on admisson 6. Hypothyroidism/CKD 3/DM 2/HLD/Morbid obesity BMI 43/DNR PLAN: PT/INR daily Resume Warfarin at 3 mg daily Cont IV Lasix dose reduced to daily with Entresto Cont Coreg Cont other meds as below AM labs Cont Fluid rest Review of Systems - Review of Systems Respiratory: negative: Cough, Dry, Shortness of Breath, Hemoptysis, SOB with Excertion, Pleuritic Pain, Sputum, Wheezing Cardiovascular: negative: chest pain, palpitations, orthopnea, paroxysmal nocturnal dyspnea, edema, light headedness, other - Medications/Allergies Allergies/Adverse Reactions: Allergies Allergy/AdvReac Type Severity Reaction Status Date / Time PEROXIDE Allergy Mild itchy Uncoded 02/15/17 21:43 SILK Allergy Mild itch or Uncoded 02/15/17 21:43 sneeze Medications: Current Medications Acetaminophen (Tylenol) 650 mg PO Q4H PRN PRN Reason: Headache/Fever or Pain Hydrocodone Bitart/Acetaminophen ([place] 5/325) 1 tab PO Q4H PRN PRN Reason: Moderate Pain (4-6) Last Admin: 09/19/17 21:03 Dose: 1 tab Albuterol Sulfate (Ventolin) 2.5 mg NEB [id number] PRN PRN Reason: SOB &/or Wheezing Albuterol/Ipratropium (Duoneb) 3 ml NEB [id number] Last Admin: 09/19/17 18:21 Dose: 3 ml Allopurinol (Zyloprim) 100 mg PO DAILY [facility] Last Admin: 09/19/17 09:23 Dose: 100 mg Amiodarone HCl (Cordarone) 200 mg PO DAILY [facility] Last Admin: 09/19/17 09:23 Dose: 200 mg Ascorbic Acid (Vitamin C) 500 mg PO DAILY [facility] Last Admin: 09/19/17 09:23 Dose: 500 mg Aspirin (Aspirin Chewable) 81 mg PO DAILY [facility] Last Admin: 09/19/17 09:23 Dose: 81 mg Carvedilol (Coreg) 3.125 mg PO BID [facility] Last Admin: 09/19/17 21:02 Dose: 3.125 mg Docusate Sodium (Colace) 100 mg PO BID [facility] Last Admin: 09/19/17 21:42 Dose: Not Given Ferrous Sulfate (Feosol) 325 mg PO QA-[facility] Last Admin: 09/19/17 09:23 Dose: 325 mg Folic Acid (Folvite) 1 mg PO DAILY [facility] Last Admin: 09/19/17 09:24 Dose: 1 mg Furosemide (Lasix) 40 mg SLOW IVP DAILY [facility] Last Admin: 09/19/17 09:24 Dose: 40 mg Guaifenesin (Mucinex) 600 mg PO Q12HR [facility] Last Admin: 09/19/17 21:02 Dose: 600 mg Levothyroxine Sodium (Synthroid) 200 mcg PO 0600 [facility] Last Admin: 09/19/17 05:16 Dose: 200 mcg Loratadine (Claritin) 10 mg PO DAILYPRN PRN PRN Reason: Sinus Symptoms Miscellaneous Medication (Pharmacy To Dose) 1 each PO .W[facility]FARIN [facility] Pravastatin Sodium (Pravachol) 20 mg PO DAILY [facility] Last Admin: 09/19/17 09:24 Dose: 20 mg Sacubitril/Valsartan (Entresto 24.5 Mg-25.5 Mg Tablet) 1 tab PO BID [facility] Last Admin: 09/19/17 21:02 Dose: 1 tab Sodium Chloride (Flush - Normal Saline) 10 ml IVF Q12HR [facility] Last Admin: 09/19/17 21:03 Dose: 10 ml Sodium Chloride (Flush - Normal Saline) 10 ml IVF PRN PRN PRN Reason: Saline Flush Warfarin Sodium (Coumadin) 3 mg PO 1700 [facility] Last Admin: 09/19/17 17:00 Dose: 3 mg
[2017-09-20] MEDS: Levothyroxine Sodium 100 MCG TAB PO SCH (05:13)
[2017-09-20 06:04] LABS: Hemoglobin 10.4 g/dL (12.0-16.0); Platelet Count 141 thou/uL (130-400)
[2017-09-20 06:10] LABS: INR-International Normal Ratio 2.5; Prothrombin Time 27.2 SEC (12.0-14.7)
[2017-09-20 06:13] LABS: Anion Gap 11 mmol/L (10-20); BUN (Urea Nitrogen) 30 mg/dL (9.8-20.1); Calc. Creatinine Clearance 75 mL/min (70-130); Calcium 8.8 mg/dL (7.8-10.44); Carbon Dioxide 24 mmol/L (23-31); Chloride 104 mmol/L (98-107); Estimated GFR-MDRD 45; Glucose 141 mg/dL (83-110); Potassium 3.9 mmol/L (3.5-5.1); Sodium 135 mmol/L (136-145)
[2017-09-20] MEDS: Allopurinol 100 MG TAB PO SCH (09:13)
[2017-09-20] MEDS: Ferrous Sulfate 325 MG TAB PO SCH (09:13)
[2017-09-20] MEDS: Sacubitril 24.5 MG/Valsartan 25.5 MG TABLET PO SCH (09:14)
[2017-09-20] MEDS: Furosemide 40 MG/4 ML VIAL SLOW IVP SCH (09:14)
[2017-09-20] MEDS: Carvedilol 3.125 MG TAB PO SCH (09:14)
[2017-09-20] MEDS: guaiFENesin ER 600 MG TAB PO SCH (09:14)
[2017-09-20] MEDS: Docusate 100 MG CAP PO SCH (09:14)
[2017-09-20] MEDS: Ascorbic Acid 500 mg Chewable Tablet PO SCH (09:14)
[2017-09-20] MEDS: Folic Acid 1 MG TAB PO SCH (09:14)
[2017-09-20] MEDS: Pravastatin Sodium 20 MG TAB PO SCH (09:14)
[2017-09-20] MEDS: Amiodarone 200 MG TAB PO SCH (09:14)
[2017-09-20] MEDS: HYDROcodone/Acetaminophen 5/325 mg Tablet PO PRN (09:15)
--- NOTE | 2017-09-20 10:45 | EKG ---
Test Reason : Blood Pressure : / mmHG Vent. Rate : 092 BPM Atrial Rate : 092 BPM P-R Int : 136 ms QRS Dur : 152 ms QT Int : 464 ms P-R-T Axes : 086 -36 074 degrees QTc Int : 573 ms Electronic ventricular pacemaker Abnormal ECG Confirmed by KISHA BHANDARI ([id number]) on 09/20/2017 10:45:27 AM Referred By: ADINA Confirmed By:KISHA BHANDARI
--- NOTE | 2017-09-20 14:19 | PDOC.CTH ---
Cardiology Progress Note - Subjective The pt seen and examined. No overnight events. No cardiac complaints. - Objective Vital Signs Temp Pulse Pulse Pulse Resp BP BP 09/20/17 12:10 97.6 F 77 18 09/20/17 11:19 77 20 09/20/17 09:20 96 90 142/63 H 163/78 H 09/20/17 08:00 97.7 F 82 18 09/20/17 07:38 97.7 F 82 18 09/20/17 07:23 09/20/17 07:09 84 20 09/20/17 04:00 98.3 F 84 20 BP BP Pulse Ox Pulse Ox Pulse Ox 09/20/17 12:10 123/61 95 09/20/17 11:19 09/20/17 09:20 94 L 92 L 09/20/17 08:00 94 L 09/20/17 07:38 138/63 94 L 09/20/17 07:23 92 L 09/20/17 07:09 92 L 09/20/17 04:00 130/61 92 L Weight 270 lb 09/19/17 09/20/17 09/21/17 06:59 06:59 06:59 Intake Total 3079.4 960 Output Total 3200 1225 Balance -120.6 -265 - Physical Examination General/Neuro: alert & oriented x3 Neck: no JVD present Lungs: other: (diminished at bases) Heart: RRR Abdomen: soft Extremities: other: (1-2+ pitting BLE edema) - Telemetry Telemetry Rhythm: V paced - Labs Result Diagrams: 09/20/17 05:36 09/20/17 05:36 Troponin/CKMB CK-MB (CK-2) 1.2 ng/mL (0-6.6) 09/16/17 03:05 Troponin I 0.062 ng/mL (< 0.028) H 09/16/17 10:26 - Assessment/Plan 1. Acute on chronic systolic CHF - gradually improving with Lasix 40mg IV BID, and coreg 6.25mg BID. On Dobuatmin 2.5mg/kg/min which d/joann. Will resume Entresto 97/106 mg BID when the pt's BP is more stable 2. Ischemic CMY with hx of BiV AICD - stable 3. 1 v CAD with stenosis in LAD - Stable with BBlocker, ASA, Statin 4. HTN - stable 5. CKD - stable 6. DM type 2 - managed by PCP 7. Hyperlipidemia - on Statin 8. S/p Wide complex tachycardia in 02/2017 - the pt's asymptomatic during the episodes. 9. Hx of Lt CEA - cont. to monitor 10. Chronic afib - On Coumaidin 11. Obese - She stated she will start watching her diet well. MAR reviewed * Echo in 06/2017 showed EF 25-30% and grade I diastolic dysfunction. * From Cardiac standpoint, the pt is stable to d/c home. The pt will f/u with Dr Aquino' office within 2-4wks. Review of Systems - Review of Systems Constitutional: reports: no symptoms reported EENTM: reports: no symptoms reported Respiratory: reports: shortness of breath Cardiac (ROS): reports: no symptoms reported ABD/GI: reports: no symptoms reported
--- NOTE | 2017-09-20 15:09 | PRG ---
DATE OF SERVICE: 09/20/2017 SUBJECTIVE: Ms. Paige is doing well. She wants desperately to go home. She says she cannot sleep in the bed here anymore and needs to get in her own bed. She has oxygen at home. OBJECTIVE: VITAL SIGNS: She is afebrile, heart rate is 77, respiratory rate is 18, oximetry is 95 on 2 liters, blood pressure 142/63. Intake and output negative 265. LUNGS: Clear. CARDIOVASCULAR: Regular rhythm. ABDOMEN: Soft. IMPRESSION: Congestive heart failure, stable from a pulmonary standpoint. PLAN: Per Cardiology.
[2017-09-20 16:41] VITALS: BP 144/87; TEMP 97.7
[2017-09-20] MEDS: Warfarin Sodium 3 MG TAB PO SCH (16:42)
--- NOTE | 2017-09-20 17:11 | DIS ---
DATE OF DISCHARGE: 09/20/2017 DISCHARGE DISPOSITION: Home. Home health care will be resumed. FOLLOWUP: 1. Follow up with primary care physician, Dr. Vieira, in 1 week. 2. Follow up with Cardiology, Dr. Aquino, in 2 weeks. 3. Follow up with [facility]. 4. Home healthcare with resumed. 5. Coumadin follow up to be resumed. 6. Base met after 1 week is recommended. Primary care physician to follow. DISCHARGE MEDICATIONS: Lasix 40 mg daily, Carvedilol 3.125 mg b.i.d. All other home medications wer e resumed including Entresto and Coumadin. BRIEF HOSPITAL COURSE: The patient is an 81-year-old female with chronic systolic heart failure, eje ction fraction 25%-30%; coronary artery disease; hypertension; chronic atrial fibrillation, on antico agulation, who presented to the emergency room with shortness of breath. Her workup was consistent w ith acute hypoxic respiratory failure, requiring noninvasive positive pressure ventilation. She was monitored in the intermediate care unit. The patient was seen by Cardiology as well as Pulmonary. S he showed good improvement with diuretics. Beta blockers has been started. Her INR on the day of ad mission was 3.2. She has been started back on Coumadin yesterday. INR on the day of discharge is 2. 5. She has been cleared by consultants for discharge. FINAL DIAGNOSES: 1. Acute hypoxic respiratory failure, status post noninvasive positive pressure ventilation. 2. Acute on chronic systolic/diastolic heart failure exacerbation, ejection fraction 25%-30%. 3. Coronary artery disease. 4. Ischemic cardiomyopathy. 5. Status post AICD. 6. Hypertension. 7. Chronic atrial fibrillation, on Coumadin. 8. Hypothyroidism. 9. Chronic kidney disease stage 3. 10. Diabetes mellitus type 2. 11. Hyperlipidemia. 12. Morbid obesity with a BMI of 43. CODE STATUS: Do not resuscitate status, confirmed with the patient. Plan of care was discussed with the patient in detail and she stated understanding.
== END 2017-09-20 18:24 | disposition home or self-care (01) | DRG 291 ==
LOC: ERS 02:04 → ERHOLD 05:02 → CCU 15:07 → 2NO 09-17 12:55
PROVIDERS: ADMIT Internal Medicine; ATTEND Internal Medicine
DX: I13.0 Hypertensive heart and chronic kidney disease with heart failure and stage 1 through stage 4 chronic kidney disease, or unspecified chronic kidney disease (principal); J96.01 Acute respiratory failure with hypoxia; I50.23 Acute on chronic systolic (congestive) heart failure; N17.9 Acute kidney failure, unspecified; J44.1 Chronic obstructive pulmonary disease with (acute) exacerbation; Z68.41 Body mass index [BMI] 40.0-44.9, adult; N18.4 Chronic kidney disease, stage 4 (severe); I48.2 Chronic atrial fibrillation; E11.22 Type 2 diabetes mellitus with diabetic chronic kidney disease; E78.5 Hyperlipidemia, unspecified; E66.01 Morbid (severe) obesity due to excess calories; I25.10 Atherosclerotic heart disease of native coronary artery without angina pectoris; I25.5 Ischemic cardiomyopathy; E03.9 Hypothyroidism, unspecified; Z95.810 Presence of automatic (implantable) cardiac defibrillator; Z90.49 Acquired absence of other specified parts of digestive tract; Z87.891 Personal history of nicotine dependence; Z79.899 Other long term (current) drug therapy; Z79.01 Long term (current) use of anticoagulants
CPT/HCPCS: 36415; 36416; 51702; 71045; 80048; 80053; 81003; 82553; 82805; 83036; 83605; 83735; 83880; 84484; 85014; 85018; 85025; 85049; 85610; 85730; 87040; 93005; 93010; 93306; 93798; 94640; 94660; 94760; 96365; 96367; 96375; 96376; A4216; G8978-GP-CM; G8979-GP-CM; G8980-GP-CM; G8987-GO-CK; G8988-GO-CI; J0456; J0696; J1100; J1250; J1940; J3475; J7050; J7611; J7620

== ENCOUNTER 2017-09-21 17:29 | Inpatient (IN) | payer MEDICARE ==
[2017-09-21 18:37] LABS: Hemoglobin 10.6 g/dL (12.0-16.0); Mean Corpuscular HGB CONC 33.2 g/dL (32.0-36.0); Mean Corpuscular Hemoglobin 32.2 pg (27.0-31.0); Mean Corpuscular Volume 97.1 fL (78.0-98.0); Mean Platelet Volume 8.7 fL (7.4-10.4); Platelet Count 160 thou/uL (130-400); RBC Distribution Width 14.1 % (11.5-14.5); Red Blood Cell (RBC) Count 3.28 mill/uL (4.20-5.40); White Blood Cell (WBC) Count 11.1 thou/uL (4.8-10.8)
[2017-09-21 18:54] LABS: ALT (SGPT) 14 U/L (8-55); AST (SGOT) 13 U/L (5-34); Albumin 3.6 g/dL (3.4-4.8); Alkaline Phosphatase 82 U/L (40-150); Anion Gap 15 mmol/L (10-20); BUN (Urea Nitrogen) 26 mg/dL (9.8-20.1); Bilirubin, Total 0.7 mg/dL (0.2-1.2); CK (CPK) 36 U/L (29-168); Calc. Creatinine Clearance 0 mL/min (70-130); Calcium 9.5 mg/dL (7.8-10.44); Carbon Dioxide 24 mmol/L (23-31); Chloride 103 mmol/L (98-107); Estimated GFR-MDRD 47; Glucose 157 mg/dL (83-110); Potassium 3.9 mmol/L (3.5-5.1); Protein, Total 6.6 g/dL (6.0-8.3); Sodium 138 mmol/L (136-145)
[2017-09-21 18:58] LABS: CKMB 1.3 ng/mL (0-6.6); Troponin I 0.053 ng/mL (< 0.028)
[2017-09-21 18:59] LABS: Lymphocytes 2 % (21-51); MDiff Complete? YES; Monocytes 2 % (0-10); Neutrophil 96 % (42-75); PLT Morphology Comment Appears Adequate
[2017-09-21 19:21] LABS: INR-International Normal Ratio 2.3; Prothrombin Time 24.9 SEC (12.0-14.7)
[2017-09-21] MEDS ORDERED: Furosemide 40 MG/4 ML VIAL ONE (19:24)
[2017-09-21] MEDS ORDERED: Piperacillin/Tazobactam 4.5 GM VIAL ONE (19:24)
[2017-09-21] MEDS ORDERED: Nitroglycerin 2% Ointment 1 INCH/1 GM Packet ONE (19:24)
--- NOTE | 2017-09-21 19:31 | RAD ---
PORTABLE AP CHEST X-RAY 09/21/17 HISTORY: Dyspnea and shortness of breath. COMPARISON: 09/16/17 FINDINGS: Triple lead left subclavian AICD device remains in place. The cardiac silhouette is stable in size an d magnified by projection. It is probably mildly enlarged. There has been interval increase in inters titial and alveolar opacities in a perihilar distribution on the right but much greater in the right upper lobe and medial aspect right lung base. There is minimal increase in interstitial densities on the left with small left pleural effusion noted. Vascular calcifications are seen in the thoracic aor ta. No other interval change. IMPRESSION: 1. Interval increase in interstitial and alveolar opacities involving the right lung, predominan tly within the right upper lobe and at the right lung base. While findings could be related to asymme tric pulmonary edema, findings are worrisome for infectious process. Followup to complete resolution is recommended. 2. Small left pleural effusion. 3. Mild cardiomegaly. POS: CONCHIS
[2017-09-21] MEDS ORDERED: Vancomycin HCl 1.75 GM in Sodium Chloride 0.9% 500 ML IVPB SCH (19:45)
[2017-09-21 21:59] LABS: Troponin I 0.059 ng/mL (< 0.028)
[2017-09-21 22:05] LABS: Bilirubin Negative (Negative); Blood, Urine Moderate (Negative); Clarity CLOUDY (Clear); Glucose, Urine (Dipstick) Negative (Negative); Leukocyte Moderate (Negative); Nitrite Negative (Negative); Protein, Urine (Dipstick) Trace mg/dL (Neg-Trace); Specific Gravity, Urine 1.008 (1.002-1.036); Urobilinogen 0.2 mg/dL (0.2-1.0)
[2017-09-21 22:07] LABS: Bacteria/HPF None Seen HPF (None Seen); Hyaline Casts/LPF 0-3 HYALINE CAST LPF (0-3 Hyaline); Pathc Cast-AUWi Flag 0.58 (0-2.49)
[2017-09-21] MEDS ORDERED: Ondansetron HCl/PF 4 MG/2 ML Vial IVP PRN (22:11)
[2017-09-21] MEDS ORDERED: Acetaminophen 325 MG TAB PO PRN (22:11)
[2017-09-21 22:43] LABS: Hemoglobin 10.7 g/dL (12.0-16.0)
[2017-09-21 23:40] VITALS: BMI 39.4
[2017-09-22 01:08] LABS: Troponin I 0.078 ng/mL (< 0.028)
[2017-09-22] MEDS: traMADol HCl 50 MG TAB PO PRN ×2 (04:47→21:22)
[2017-09-22 04:53] LABS: INR-International Normal Ratio 2.2; Prothrombin Time 24.8 SEC (12.0-14.7)
[2017-09-22 05:13] LABS: Anion Gap 15 mmol/L (10-20); BUN (Urea Nitrogen) 28 mg/dL (9.8-20.1); Calc. Creatinine Clearance 70 mL/min (70-130); Calcium 9.1 mg/dL (7.8-10.44); Carbon Dioxide 23 mmol/L (23-31); Chloride 103 mmol/L (98-107); Estimated GFR-MDRD 45; Glucose 198 mg/dL (83-110); Potassium 3.8 mmol/L (3.5-5.1); Sodium 137 mmol/L (136-145)
--- NOTE | 2017-09-22 05:23 | HP ---
CODE STATUS: DNR as per patient's request. PRIMARY CARE PHYSICIAN: Dr. Vieira. CHIEF COMPLAINT: "I saw blood in stools and continued to have shortness of breath." HISTORY OF PRESENT ILLNESS: This is an 81-year-old female patient with past medical history of conge stive heart failure, CAD, diabetes type 2, hyperlipidemia, hypertension, asthma, came to the hospital after having gradually worsening severe shortness of breath, no clear triggers, no alleviating facto rs, the patient had been recently admitted to the hospital and has returned with the same symptoms. As noted, the patient also noticed that she had some bright red blood per rectum, episode happened at home, she reported that was significant, has not happened again as the patient has a reported histor y of hemorrhoids. REVIEW OF SYSTEMS: Constitutional: No fever, no chill generalized weakness. Respiratory: The zaheer ent reported cough, scant sputum production, shortness of breath. Cardiovascular: No chest pain, pa lpitations, shortness of breath. Gastrointestinal: No nausea, no vomiting, no diarrhea, no abdomina l pain. Central Nervous System: No dizziness, headache, feeling lightheaded. Genitourinary: No bu rning on urination. Extremities: Bilateral leg swelling. All other systems were reviewed and negat george except for the findings mentioned above. PAST MEDICAL HISTORY: Positive for CHF, diabetes type 2, hyperlipidemia, hypertension, asthma. PAST SURGICAL HISTORY: The patient has a history of cholecystectomy, pacemaker implantation. PSYCHIATRIC HISTORY: No previous psychiatric history. SOCIAL HISTORY: Former smoker, smokes cigarettes, quit 10 years ago. ALLERGIES: BENZOYL PEROXIDE. REPORTED MEDICATIONS: Tramadol, aspirin, warfarin, levothyroxine, pravastatin, allopurinol, gabapent in, furosemide, carvedilol, amiodarone. PHYSICAL EXAMINATION: VITAL SIGNS: On presentation, blood pressure 146/71 with heart rate 84, respiratory rate was 20, tem perature 98. GENERAL APPEARANCE: Patient is alert, oriented, in distress due to shortness of breath. HEENT: Eyes: Normal conjunctivae. Moist oral mucosa. Anicteric. NECK: Bilateral JVD. RESPIRATORY: Bilateral air entry is decreased. Patient has scattered rales. No wheezing. Symmetri c expansion. CARDIOVASCULAR: Normal rate, regular rhythm. No murmurs, no gallop. Bilateral leg edema. ABDOMEN: Soft, normal bowel sounds. MUSCULOSKELETAL: Baseline range of motion and strength. No tenderness. SKIN: Warm and intact. No pallor, no rash, no redness. NEUROLOGIC: Baseline sensorium. No evidence of any new focal weakness. Baseline speech. Cranial n erves seem to be intact. PSYCHIATRIC: The patient is in good mood. No anxiety. Oriented, optimal judgement. LABORATORY AND DIAGNOSTIC DATA: White count 11.1, hemoglobin 10.6, platelet count 160,000. Repeat h emoglobin 10.7. PT 24.9 with INR 2.3. X-ray was reviewed. The patient has interval increase of int erstitial and alveolar opacities involving the right lung, prominently with the right upper lobe and right lung base while findings could be seen related to asthmatic pulmonary edema. Findings are worr isome for infectious process. Follow up to complete resolution is recommended. There is mild pleura l effusion, mild cardiomegaly. EKG was reviewed, discussed with the admitting physician. The patien t has electronic ventricular paced rhythm at 85 beats per minute, no evidence of any acute ischemic e vent. ASSESSMENT AND PLAN: The patient will be placed in the hospital for the following medical problems. 1. Right upper lobe infiltrate. We will place the patient on antibiotics, and adjust the treatment as needed. 2. Follow cultures. He has . 3. Lower gastrointestinal bleed. The patient is on warfarin, might need GI evaluation. We will mon itor hemoglobin, will transfuse as needed. 4. Acute on chronic congestive heart failure exacerbation. The patient has improved with Lasix, but continue with shortness of breath, patient has been placing BiPAP, given increasing work of breathin g, as reported improvement, we will place in IMCU. We will adjust the treatment as needed. 5. Acute hypoxic respiratory failure likely secondary to underlying pneumonia plus CHF, we will tami t underlying condition. Continue BiPAP. 6. Normocytic anemia with hemoglobin of 10, this is a baseline hemoglobin for this patient. 7. Chronic kidney disease, stage 3, creatinine stable, monitor. We will adjust treatment as needed. The patient will need diuresis, if creatinine is worse then he might need help from nephrology. 8. Acute congestive heart failure exacerbation. The patient has increased beta-natriuretic peptide of 2235, continue diuresis, and adjust treatment as needed. 9. Non-ST elevation myocardial infarction, type 2 with troponin 0.053, 0.059 it went up, continue wi th mild elevation of 0.078, we will monitor, likely secondary to underlying congestive heart failure. We will treat the underlying condition. 10. Urinary tract infection with white count 7-10 in the urine, the patient is receiving antibiotics , we will monitor. Adjust treatment as needed. 11. Deep venous thrombosis prophylaxis. 12. Hypothyroidism. Continue hormone replacement, levothyroxine. 13. History of atrial fibrillation, rate control. Continue amiodarone, patient was on warfarin, may need GI clearance to continue warfarin after GI bleeding has been controlled. 14. Uncontrolled hypertension. Patient's systolic blood pressure 150/74, reconciled home meds, adju st treatment as needed. We will not treat aggressively since the patient is septic and has gastroint estinal bleeding.
[2017-09-22] MEDS: Furosemide 40 MG/4 ML VIAL SLOW IVP SCH ×2 (05:31→13:49)
[2017-09-22] MEDS: Piperacillin/Tazobactam 3.375 GM in Sodium Chloride 0.9% 100 ML IVPB SCH ×3 (05:31→18:50)
[2017-09-22] MEDS: Levothyroxine 175 MCG TAB PO SCH (05:32)
[2017-09-22] MEDS: Amiodarone 200 MG TAB PO SCH (09:16)
[2017-09-22] MEDS: Allopurinol 100 MG TAB PO SCH (09:16)
[2017-09-22] MEDS: Gabapentin 100 MG CAP PO SCH ×2 (09:16→21:16)
[2017-09-22] MEDS: Carvedilol 3.125 MG TAB PO SCH ×2 (09:16→21:16)
[2017-09-22 10:34] LABS: Hemoglobin 10.5 g/dL (12.0-16.0)
--- NOTE | 2017-09-22 12:53 | CON ---
DATE OF CONSULTATION: 09/22/2017 HISTORY OF PRESENT ILLNESS: Patient is an 81-year-old female in her normal state of health until the day of admission when she had a large amount of coughing and had an episode of bright red blood per rectum. She passed no stool during this episode of bleeding. She subsequently had a bowel movement without blood. She has had intermittent bleeding in the past. She attributes this to hemo rrhoids. She had a colonoscopy approximately [address] Cordon, at which time it showed diver ticula and hemorrhoids. PAST MEDICAL HISTORY: Includes congestive heart failure, diabetes mellitus, hyperlipidemia, hyperten neto. PAST SURGICAL HISTORY: Includes cholecystectomy, pacemaker. ALLERGIES: Include BENZOYL PEROXIDE. SOCIAL HISTORY: She does not smoke or drink. FAMILY HISTORY: Negative for GI or liver disease. REVIEW OF SYSTEMS: Constitutional: No fever or chills, no weight loss. Eyes: No blurred vision or double vision. ENT: No sore throat or earaches. Cardiovascular: No chest pain or palpitations. Pulmonary: Positive for cough. Positive for shortness of breath. GI: See above. Genitourinary: No hematuria or dysuria. Musculoskeletal: No joint pain or muscle weakness. Skin: No rashes. Kimberly rologic: No numbness or seizure activity. PHYSICAL EXAMINATION: GENERAL: Shows overweight female in no acute distress. VITAL SIGNS: Temperature 97.9, pulse 74, respiratory rate 20, blood pressure 124/58. HEENT: Unremarkable. NECK: Supple. CHEST: Clear. CARDIOVASCULAR: Regular rate and rhythm. ABDOMEN: Soft, nontender, without organomegaly or masses. Bowel sounds present and normoactive. RECTAL: Deferred. EXTREMITIES: Normal. NEUROLOGIC: Nonfocal. LABORATORY DATA: Shows a white blood cell count of 11.8, hemoglobin 10.6, hematocrit 31.8, MCV of 97 .1. Reviewing previous hemoglobin and hematocrit, her hemoglobin and hematocrit have run in the 10 r nyla for quite a period of time, back in 2012. Chemistries are normal except for BUN 26, creatinine 1.11, glucose 157. Previous iron level was 61, TIBC of 359, and percent saturation of 17, all within normal range. Reviewing previous medical records, the patient underwent an EGD in 05/2014, which sh owed some gastric erosions of the gastric antrum. Also, underwent a colonoscopy, which showed divert icula and hemorrhoids in 05/2014. ASSESSMENT: 1. Hematochezia - probably secondary to hemorrhoids, single episode without recurrence. 2. Anemia of chronic disease. 3. Pneumonia versus congestive heart failure. RECOMMENDATIONS: 1. No further need for colonoscopy at this time. 2. Okay to continue Coumadin. 3. We will sign off.
--- NOTE | 2017-09-22 15:07 | CON ---
DATE OF CONSULTATION: 09/22/2017 HISTORY OF PRESENT ILLNESS: Elena Paige is an 81-year-old female, who was recently discharged with congestive heart failure exacerbation. She developed cough and shortness of breath within 24 hours a fter discharge and has been readmitted with a diagnosis of pneumonia. She did have some blood in the toilet prior to admission, but GI feels that this is most likely hemorrhoid-related blood. PAST MEDICAL HISTORY: Remarkable for, 1. Ejection fraction of 15%. 2. History of valvular heart disease. 3. History of ventricular tachycardia. 4. History of defibrillator placement. 5. History of diabetes. 6. History of hypertension. 7. Hypothyroidism, on replacement. 8. History of obesity. 9. History of carotid endarterectomy. 10. History of cholecystectomy. 11. History of tubal ligation. 12. History of tobacco use, until 1988. SOCIAL HISTORY: She is nonsmoker, nondrinker, does not use drugs. FAMILY HISTORY: Negative for lung disease in early age. Positive for vascular disease. REVIEW OF SYSTEMS: A 10-point review of systems, otherwise, negative. She says she is feeling chalo r. PHYSICAL EXAMINATION: GENERAL: She is currently in no distress. She is able to speak in complete sentences. VITAL SIGNS: She is afebrile, heart rate is 74, respiratory rate is 20, oximetry is 97 on 3 liters, blood pressure 124/58. HEENT: Pupils are equal. Sclerae is anicteric. NECK: Supple, no lymphadenopathy. LUNGS: Clear. HEART: Regular rhythm. S1 and S2 are normal. ABDOMEN: Soft and nontender. No masses are palpated. EXTREMITIES: No clubbing, cyanosis, or edema. NEUROLOGIC: Grossly nonfocal. LABORATORY DATA: White count is 11.1, hemoglobin 10.6, platelets 160,000. Sodium 137, potassium 3.8 , chloride 103, bicarbonate 23, BUN 28, creatinine 1.16. Chest radiograph shows right upper lobe jenny eolar infiltrate. IMPRESSION: 1. Pneumonia, hospital-acquired. 2. Recent exacerbation of systolic congestive heart failure with cardiogenic pulmonary edema. 3. "Bloody bowel movement." It is felt that this is hemorrhoid-related at this point in time by Gas troenterology. PLAN: Consider placement in fdc unit. She actually volunteered to go to the [facility] when I was talking to her. Hopefully, tomorrow, we can switch her to p.o. antimicrobial therapy. This is a 50-minute consult, greater than 50% of the time was spent in coordinating care.
--- NOTE | 2017-09-22 20:03 | PDOC.PN ---
- Subjective Encounter Start Date: 09/22/17 Encounter Start Time: 20:00 Subjective: f/u for suspected R-sided HCAP on Zosyn and Vancomycin. Also concern -: for CHF exacerbation with recent d/c 09/20/17. Less SOB today. - Objective Resuscitation Status: Resuscitation Status DNR:Do Not Resuscitate MAR Reviewed: Yes Vital Signs & Weight: Vital Signs (12 hours) Temp Pulse Pulse Pulse Resp BP BP 09/22/17 19:58 97.5 F L 75 18 09/22/17 15:55 97.6 F 72 18 09/22/17 13:59 71 82 124/81 132/66 09/22/17 11:33 97.7 F 74 20 09/22/17 08:12 97.6 F 82 21 H BP Pulse Ox Pulse Ox 09/22/17 19:58 142/67 H 98 09/22/17 15:55 140/69 98 09/22/17 13:59 97 09/22/17 11:33 124/58 L 97 09/22/17 08:12 94 L Weight Weight 251 lb 1.6 oz I&O: 09/21/17 09/22/17 09/23/17 06:59 06:59 06:59 Intake Total 590 850 Output Total 980 Balance -390 850 Result Diagrams: 09/22/17 16:49 09/22/17 04:10 Additional Labs: Microbiology 09/21/17 17:48 Stool - Pending Stool Occult Blood (MACHO) - Final Laboratory Tests 09/17/17 09/18/17 09/21/17 03:26 05:11 18:21 BUN 26 H Creatinine 1.11 H Estimated GFR (MDRD) 47 Troponin I B-Natriuretic Peptide 1997.3 H 828.0 H 09/21/17 09/21/17 09/21/17 18:21 18:21 21:28 BUN Creatinine Estimated GFR (MDRD) Troponin I 0.053 H 0.059 H B-Natriuretic Peptide 2235.0 H 09/22/17 00:33 BUN Creatinine Estimated GFR (MDRD) Troponin I 0.078 H B-Natriuretic Peptide Radiology Reviewed by me: Yes (PCXR - R infiltrates increased) EKG Reviewed by me: Yes (Tele - SR in 70's) Phys Exam - Physical Examination Constitutional: NAD HEENT: PERRLA, sclera anicteric, oral pharynx no lesions Neck: no nodes, no JVD, supple, full ROM diminished in R steinberg, scattered rhonchi S1, S2 Cardiovascular: RRR, no significant murmur, no rub, gallop Gastrointestinal: soft, non-tender, no distention, positive bowel sounds Musculoskeletal: pulses present, edema present Neurological: normal sensation, moves all 4 limbs Psychiatric: normal affect Skin: no rash, normal turgor, cap refill <2 seconds Dx/Plan (1) Healthcare-associated pneumonia Code(s): J18.9 - PNEUMONIA, UNSPECIFIED ORGANISM Status: Acute Comment: Suspected gm+ cocci, Continue Zosyn/Vancomycin, Duonebs, O2 prn (2) Acute on chronic systolic CHF (congestive heart failure) Code(s): I50.23 - ACUTE ON CHRONIC SYSTOLIC (CONGESTIVE) HEART FAILURE Status : Acute Comment: Continue Lasix 40mg IV BID, monitor I/O's, daily weight, EF 20-25% (3) Hematochezia Code(s): K92.1 - MELENA Status: Acute Comment: Likely from hemorrhoidal etiology, no recommendations for endoscopy, serial H/H monitoring (4) Anemia, macrocytic Code(s): D53.9 - NUTRITIONAL ANEMIA, UNSPECIFIED Status: Chronic Comment: Serial CBC (5) CKD (chronic kidney disease) stage 4, GFR 15-29 ml/min Code(s): N18.4 - CHRONIC KIDNEY DISEASE, STAGE 4 (SEVERE) Status: Chronic Comment: Stable currently, avoid nephrotoxic meds and limit contrast exposure (6) DM II (diabetes mellitus, type II), controlled Code(s): E11.9 - TYPE 2 DIABETES MELLITUS WITHOUT COMPLICATIONS Status: Chronic Comment: ISS, ADA - Plan continue antibiotics, PT/OT, social work faculty member, respiratory therapy, DVT proph w/ SCDs Stable overall -: Continue Lasix 40mg IV BID -: Continue Zosyn/Vancomycin -: De-escalate abx coverage in 24-48h -: AM lab: BMP, CBC * .
[2017-09-22] MEDS: Simvastatin 5 MG TAB PO SCH (21:16)
[2017-09-22] MEDS: Vancomycin HCl 1.75 GM in Sodium Chloride 0.9% 500 ML IVPB SCH (21:16)
[2017-09-23] MEDS: Piperacillin/Tazobactam 3.375 GM in Sodium Chloride 0.9% 100 ML IVPB SCH ×4 (04:15→21:24)
[2017-09-23 04:22] LABS: Anion Gap 14 mmol/L (10-20); BUN (Urea Nitrogen) 44 mg/dL (9.8-20.1); Calc. Creatinine Clearance 47 mL/min (70-130); Calcium 8.8 mg/dL (7.8-10.44); Carbon Dioxide 26 mmol/L (23-31); Chloride 104 mmol/L (98-107); Estimated GFR-MDRD 28; Glucose 143 mg/dL (83-110); Potassium 3.8 mmol/L (3.5-5.1); Sodium 140 mmol/L (136-145)
[2017-09-23] MEDS: Vancomycin HCl 1.75 GM in Sodium Chloride 0.9% 500 ML IVPB SCH (04:56)
[2017-09-23 05:16] LABS: INR-International Normal Ratio 2.5
[2017-09-23 05:23] LABS: Band 3 % (5-11); Eosinophils 1 % (0-10); Hemoglobin 9.1 g/dL (12.0-16.0); Lymphocytes 13 % (21-51); MDiff Complete? YES; Mean Corpuscular HGB CONC 31.8 g/dL (32.0-36.0); Mean Corpuscular Hemoglobin 31.5 pg (27.0-31.0); Mean Corpuscular Volume 99.1 fL (78.0-98.0); Mean Platelet Volume 8.9 fL (7.4-10.4); Monocytes 4 % (0-10); Neutrophil 79 % (42-75); Platelet Count 165 thou/uL (130-400); RBC Distribution Width 14.1 % (11.5-14.5); Red Blood Cell (RBC) Count 2.89 mill/uL (4.20-5.40); White Blood Cell (WBC) Count 11.7 thou/uL (4.8-10.8)
[2017-09-23] MEDS: Furosemide 40 MG/4 ML VIAL SLOW IVP SCH (06:19)
[2017-09-23] MEDS: Levothyroxine 175 MCG TAB PO SCH (06:19)
[2017-09-23] MEDS: Ascorbic Acid 500 mg Chewable Tablet PO SCH (09:06)
[2017-09-23] MEDS: Ferrous Sulfate 325 MG TAB PO SCH (09:06)
[2017-09-23] MEDS: Carvedilol 3.125 MG TAB PO SCH ×2 (09:06→21:33)
[2017-09-23] MEDS: Allopurinol 100 MG TAB PO SCH (09:07)
[2017-09-23] MEDS: Cyanocobalamin (Vitamin B-12) 1,000 MCG TAB PO SCH (09:07)
[2017-09-23] MEDS: Amiodarone 200 MG TAB PO SCH (09:07)
[2017-09-23] MEDS: Gabapentin 100 MG CAP PO SCH ×2 (09:07→21:23)
[2017-09-23] MEDS: Docusate 100 MG CAP PO SCH (09:07)
--- NOTE | 2017-09-23 10:32 | PRG ---
DATE OF SERVICE: 09/23/2017 Elena Paige feels much better. PHYSICAL EXAMINATION: VITAL SIGNS: She is afebrile, heart rate 70, respiratory rate is 19, oximetry is 93 on 4 liters, blo od pressure 163/62. LUNGS: Lungs are clear. HEART: Regular rhythm. ABDOMEN: Abdomen is soft. Intake and output is positive 850, her output is not recorded. LABORATORY: White count 11.7, hemoglobin 9.1, platelets 165,000. Sodium 140, potassium 3.8, chloride 104, bicarbonate 26, BUN 44, creatinine 1.73. Her weight actuall y went up by a pound. IMPRESSION: 1. Pneumonia. 2. Prerenal azotemia. 3. Underlying cardiomyopathy. 4. Recent hospitalization for congestive heart failure. 5. Automatic implantable cardioverter/defibrillator in place. 6. Deconditioning. She wants to be considered for [facility]. Her renal function will probably need to be watched for another day or two.
--- NOTE | 2017-09-23 12:16 | PDOC.PN ---
- Subjective Encounter Start Date: 09/23/17 Encounter Start Time: 12:15 Ms. Paige was seen today in follow-up of acute on chronic respiratory failure. She reports feeling better this morning. She is less short of breath than on admission, and is anxious to go to the custodial facility. - Objective Resuscitation Status: Resuscitation Status DNR:Do Not Resuscitate MAR Reviewed: Yes Vital Signs & Weight: Vital Signs (12 hours) Temp Pulse Resp BP BP Pulse Ox 09/23/17 11:06 97.7 F 80 20 151/77 H 98 09/23/17 08:00 97.6 F 70 19 93 L 09/23/17 07:42 97.6 F 70 19 163/62 H 100 09/23/17 03:00 97.5 F L 72 20 123/59 L 97 Weight Weight 252 lb 3.2 oz I&O: 09/22/17 09/23/17 09/24/17 06:59 06:59 06:59 Intake Total 590 850 Output Total 980 Balance -390 850 Result Diagrams: 09/23/17 03:30 09/23/17 03:30 Phys Exam - Physical Examination HEENT: PERRLA Respiratory: no wheezing, no rhonchi + rales in the right base Cardiovascular: RRR, no significant murmur, no rub Gastrointestinal: soft, non-tender, positive bowel sounds Musculoskeletal: edema present 1+ pedal edema Neurological: non-focal Dx/Plan (1) Ytzue-ga-tbbphrd kidney injury Code(s): N17.9 - ACUTE KIDNEY FAILURE, UNSPECIFIED; N18.9 - CHRONIC KIDNEY DISEASE, UNSPECIFIED Status: Acute (2) Healthcare-associated pneumonia Code(s): J18.9 - PNEUMONIA, UNSPECIFIED ORGANISM Status: Acute Comment: Suspected gm+ cocci, Continue Zosyn/Vancomycin, Duonebs, O2 prn (3) Hematochezia Code(s): K92.1 - MELENA Status: Acute Comment: Likely from hemorrhoidal etiology, no recommendations for endoscopy, serial H/H monitoring (4) Acute on chronic systolic CHF (congestive heart failure) Code(s): I50.23 - ACUTE ON CHRONIC SYSTOLIC (CONGESTIVE) HEART FAILURE Status : Acute Comment: Continue Lasix 40mg IV BID, monitor I/O's, daily weight, EF 20-25% (5) DM II (diabetes mellitus, type II), controlled Code(s): E11.9 - TYPE 2 DIABETES MELLITUS WITHOUT COMPLICATIONS Status: Chronic Comment: ISS, ADA (6) Hypertension Code(s): I10 - ESSENTIAL (PRIMARY) HYPERTENSION Status: Chronic Comment: On Ionotropes now , will hold AceI, other AntiHtn - Plan * Healthcare Associated Pneumonia- continue Zosyn, and Vancomycin for now * Consider change to oral antibiotic tomorrow * Acute on chronic systolic heart failure- she is better compensated- Lasix is on hold due to renal function- re-check BNP in AM * Acute on chronic kidney disease- likely from Lasix- will re-check her renal function in the AM * Awaiting skilled placement.
[2017-09-23] MEDS: Simvastatin 5 MG TAB PO SCH (21:23)
[2017-09-23] MEDS ORDERED: Bisacodyl 10 MG SUPP PR SCH (22:30)
[2017-09-24] MEDS: Levothyroxine 175 MCG TAB PO SCH (04:30)
[2017-09-24] MEDS: Piperacillin/Tazobactam 3.375 GM in Sodium Chloride 0.9% 100 ML IVPB SCH ×2 (04:33→08:41)
[2017-09-24 05:02] LABS: INR-International Normal Ratio 1.9; Prothrombin Time 21.8 SEC (12.0-14.7)
[2017-09-24 05:33] LABS: Anion Gap 12 mmol/L (10-20); BUN (Urea Nitrogen) 47 mg/dL (9.8-20.1); Calc. Creatinine Clearance 50 mL/min (70-130); Calcium 8.6 mg/dL (7.8-10.44); Carbon Dioxide 28 mmol/L (23-31); Chloride 105 mmol/L (98-107); Estimated GFR-MDRD 31; Glucose 107 mg/dL (83-110); Potassium 3.7 mmol/L (3.5-5.1); Sodium 141 mmol/L (136-145)
[2017-09-24 07:18] VITALS: TEMP 98.1
[2017-09-24] MEDS: Carvedilol 3.125 MG TAB PO SCH (08:40)
[2017-09-24] MEDS: Ascorbic Acid 500 mg Chewable Tablet PO SCH (08:41)
[2017-09-24] MEDS: Amiodarone 200 MG TAB PO SCH (08:41)
[2017-09-24] MEDS: Cyanocobalamin (Vitamin B-12) 1,000 MCG TAB PO SCH (08:41)
[2017-09-24] MEDS: Gabapentin 100 MG CAP PO SCH (08:41)
[2017-09-24] MEDS: Ferrous Sulfate 325 MG TAB PO SCH (08:41)
[2017-09-24] MEDS: Allopurinol 100 MG TAB PO SCH (08:41)
[2017-09-24] MEDS: Docusate 100 MG CAP PO SCH (08:41)
--- NOTE | 2017-09-24 09:30 | PDOC.PN ---
- Subjective Encounter Start Date: 09/24/17 Encounter Start Time: 09:27 Ms. Paige was seen today in follow-up. She does not have any complaints this morning. She denies feeling short of breath, and denies any chest pain. - Objective Resuscitation Status: Resuscitation Status DNR:Do Not Resuscitate MAR Reviewed: Yes Vital Signs & Weight: Vital Signs (12 hours) Temp Pulse Resp BP BP Pulse Ox 09/24/17 07:10 98.1 F 76 20 131/57 L 96 09/24/17 03:37 97.8 F 86 20 144/67 H 96 09/24/17 00:04 68 16 127/57 L 100 Weight Weight 253 lb 11.2 oz I&O: 09/23/17 09/24/17 09/25/17 06:59 06:59 06:59 Intake Total 850 440 Output Total 1600 Balance 850 -1160 Result Diagrams: 09/23/17 03:30 09/24/17 04:44 Phys Exam - Physical Examination HEENT: PERRLA, sclera anicteric Respiratory: no wheezing, no rales, no rhonchi, clear to auscultation bilateral Cardiovascular: RRR, no significant murmur, no rub Gastrointestinal: soft, non-tender, no distention, positive bowel sounds Musculoskeletal: edema present trace edema Neurological: non-focal, moves all 4 limbs Dx/Plan (1) Mvbci-ev-tocmplr kidney injury Code(s): N17.9 - ACUTE KIDNEY FAILURE, UNSPECIFIED; N18.9 - CHRONIC KIDNEY DISEASE, UNSPECIFIED Status: Acute (2) Healthcare-associated pneumonia Code(s): J18.9 - PNEUMONIA, UNSPECIFIED ORGANISM Status: Acute Comment: Suspected gm+ cocci, Continue Zosyn/Vancomycin, Duonebs, O2 prn (3) Hematochezia Code(s): K92.1 - MELENA Status: Acute Comment: Likely from hemorrhoidal etiology, no recommendations for endoscopy, serial H/H monitoring (4) Acute on chronic systolic CHF (congestive heart failure) Code(s): I50.23 - ACUTE ON CHRONIC SYSTOLIC (CONGESTIVE) HEART FAILURE Status : Acute Comment: Continue Lasix 40mg IV BID, monitor I/O's, daily weight, EF 20-25% (5) DM II (diabetes mellitus, type II), controlled Code(s): E11.9 - TYPE 2 DIABETES MELLITUS WITHOUT COMPLICATIONS Status: Chronic Comment: ISS, ADA (6) Hypertension Code(s): I10 - ESSENTIAL (PRIMARY) HYPERTENSION Status: Chronic Comment: On Ionotropes now , will hold AceI, other AntiHtn - Plan * Acute on chronic respiratory failure- improved * Acute Kidney injury- improved * She can be changed to an oral antibiotic, and she is stable for discharge to the [facility].
--- NOTE | 2017-09-24 10:26 | DIS ---
PRIMARY CARE PHYSICIAN: Dr. Vieira. DATE OF ADMISSION: 09/21/2017 DATE OF DISCHARGE: 09/24/2017 DISCHARGE DISPOSITION: To the [facility] bed in [place]. DISCHARGE DIAGNOSES: 1. Hospital-acquired pneumonia. 2. Acute on chronic systolic heart failure. 3. Diabetes mellitus, type 2. 4. Hyperlipidemia. 5. Hypertension. 6. Asthma. DISCHARGE MEDICATIONS: Include Augmentin 875 mg 1 p.o. twice a day for 5 days. She is to continue h er previous home medications including Lasix 40 mg daily, Coumadin as directed, Tramadol 50 mg q.6 ho urs as needed, Entresto 97/103 one tablet twice a day, Pravachol 20 mg daily, Protonix 40 mg daily, l evothyroxine 175 mcg daily, iron 27 mg daily, gabapentin 100 mg twice a day, docusate sodium 100 mg d aily, vitamin B12 at 1000 mcg daily, carvedilol 3.125 mg twice a day, aspirin 81 mg daily, ascorbic a sterling 500 mg daily, amiodarone 100 mg daily, and allopurinol 200 mg daily. CODE STATUS: DNR. ALLERGIES: PEROXIDE AND SILK. HOSPITAL COURSE: Ms. Paige is a very pleasant 81-year-old female, who was admitted to the hospital with complaints of shortness of breath and cough. She also had noticed some blood in her stools as w ell. She was admitted to the [facility] for possible hospital-acquired pneumonia versus CHF exacerbation. She was basically treated for both. She was placed on IV antibiotics as well as IV Lasix. She diur esed very well. Her proBNP went from the 2000s down to 500 with diuresis and symptomatically she was much improved. She was seen by Dr. Sabillon with regards to the melena in the stool and this was though t to be due to internal hemorrhoids. She had no further bleeding during the course of her hospital s yanet and Coumadin was resumed. She is therefore stable for discharge and close followup in the [facility].
[2017-09-24 11:38] VITALS: BP 122/57
--- NOTE | 2017-09-24 13:36 | PRG ---
DATE OF SERVICE: 09/24/2017 SERVICE: Pulmonary Medicine. INTERVAL HISTORY: The patient is doing really well from a respiratory standpoint. She denies any cu rrent chest pain. Her strength is improving a little bit day by day. She has been up in a chair for over 45 minutes. She denies any chest discomfort. There were no overnight events. PHYSICAL EXAMINATION: VITAL SIGNS: Afebrile, pulse 76, blood pressure 122/57, respirations 20, and saturation 96% on 4 lit ers nasal cannula. GENERAL: The patient is awake, alert, in no apparent distress. LUNGS: Decent air entry. Dependent crackles are present. There is no prolonged expiratory phase or wheezing appreciated. HEART: Normal rate, regular. ABDOMEN: Soft, nontender, nondistended. Bowel sounds are positive. MUSCULOSKELETAL: No cyanosis or clubbing. There is 1+ pitting in the bilateral lower extremities. NEUROLOGIC: Grossly nonfocal. LABORATORY DATA: WBC 11.7, hemoglobin 9.1, platelets 165,000. Neutrophil count is 79% and there is only 3% bands. INR 1.9. Creatinine 1.62 and roughly stable. Basic metabolic profile is otherwise u nremarkable. BNP 569, which is significantly down trended. Blood cultures x2 remain negative. ASSESSMENT: 1. Acute on chronic hypoxic respiratory failure. 2. Morbid obesity. 3. Community-acquired pneumonia, severe. 4. Acute kidney injury secondary to likely prerenal causes. 5. Acute on chronic systolic heart failure, returning to euvolemia. 6. Deconditioning. PLAN: The patient is stable for transition out of the hospital. Once her kidney injury improved, we will need to continue working on getting her close to euvolemia. She may benefit from a polysomnogr am in the outpatient setting. I discussed this with her. If she so inclined, she has been look up Daniela Avery in to clinic with him in the outpatient setting in consideration of that study. If she miguel ins in house, I will continue to follow along.
== END 2017-09-24 13:23 | DRG 280 ==
LOC: ERS 17:29 → IMCU/EMU 21:03
PROVIDERS: ADMIT Hospitalist; ATTEND Hospitalist
DX: I13.0 Hypertensive heart and chronic kidney disease with heart failure and stage 1 through stage 4 chronic kidney disease, or unspecified chronic kidney disease (principal); J18.9 Pneumonia, unspecified organism; I21.A1 Myocardial infarction type 2; J96.21 Acute and chronic respiratory failure with hypoxia; I50.23 Acute on chronic systolic (congestive) heart failure; N17.9 Acute kidney failure, unspecified; K92.1 Melena; N18.4 Chronic kidney disease, stage 4 (severe); N39.0 Urinary tract infection, site not specified; I42.9 Cardiomyopathy, unspecified; E66.01 Morbid (severe) obesity due to excess calories; Z68.39 Body mass index [BMI] 39.0-39.9, adult; Y95 Nosocomial condition; E78.5 Hyperlipidemia, unspecified; J45.909 Unspecified asthma, uncomplicated; E11.22 Type 2 diabetes mellitus with diabetic chronic kidney disease; Z66 Do not resuscitate; Z95.810 Presence of automatic (implantable) cardiac defibrillator; D64.9 Anemia, unspecified; K64.9 Unspecified hemorrhoids; D63.8 Anemia in other chronic diseases classified elsewhere; E03.9 Hypothyroidism, unspecified; I48.91 Unspecified atrial fibrillation; Z87.891 Personal history of nicotine dependence
CPT/HCPCS: 36415; 71045; 80048; 80053; 81003; 81015; 82274; 82550; 82553; 83880; 84484; 85007; 85018; 85025; 85027; 85610; 86850; 86900; 86901; 87040; 93005; 93798; 94660; 94760; 96365; 96366; 96367; 96375; J1940; J2543; J3370; J7050; J7620

== ENCOUNTER 2018-05-15 12:27 | Inpatient (IN) | payer MEDICARE ==
[2018-05-15 15:22] LABS: #Basophils 0.1 thou/uL (0.0-0.2); #Eosinphils 0.2 thou/uL (0.0-0.7); #Lymphocytes 1.7 thou/uL (1.20-3.40); #Monocytes 0.4 thou/uL (0.11-0.59); #Neutrophils 5.1 thou/uL (1.40-6.50); %Basophils 0.7 % (0.0-1.0); %Eosinophils 2.2 % (0.0-10.0); %Lymphocytes 22.8 % (21.0-51.0); %Monocytes 5.6 % (0.0-10.0); %Neutrophils 68.7 % (42.0-75.0); Hemoglobin 10.7 g/dL (12.0-16.0); Mean Corpuscular HGB CONC 31.4 g/dL (32.0-36.0); Mean Platelet Volume 8.9 fL (7.4-10.4); Platelet Count 173 thou/uL (130-400); RBC Distribution Width 15.3 % (11.5-14.5); Red Blood Cell (RBC) Count 3.35 mill/uL (4.20-5.40); White Blood Cell (WBC) Count 7.5 thou/uL (4.8-10.8)
[2018-05-15 15:28] LABS: INR-International Normal Ratio 2.8; PTT 53.9 SEC (22.9-36.1); Prothrombin Time 29.4 SEC (12.0-14.7)
--- NOTE | 2018-05-15 15:40 | RAD ---
PORTABLE CHEST: Date: 05/15/18 HISTORY: Nausea and vomiting. COMPARISON: 10/02/17. FINDINGS/IMPRESSION: Cardiomegaly and mild vascular congestion. Possibly some interstitial congestion/edema. AICD leads ag ain noted. Small effusions cannot be excluded. POS: [facility]
[2018-05-15 15:45] LABS: ALT (SGPT) 10 U/L (8-55); AST (SGOT) 13 U/L (5-34); Albumin 3.8 g/dL (3.4-4.8); Alkaline Phosphatase 86 U/L (40-150); Anion Gap 14 mmol/L (10-20); BUN (Urea Nitrogen) 30 mg/dL (9.8-20.1); Bilirubin, Total 0.6 mg/dL (0.2-1.2); Calc. Creatinine Clearance 0 mL/min (70-130); Calcium 9.3 mg/dL (7.8-10.44); Carbon Dioxide 27 mmol/L (23-31); Chloride 100 mmol/L (98-107); Estimated GFR-MDRD 34; Globulin 3.2 g/dL (2.4-3.5); Glucose 106 mg/dL (83-110); Potassium 3.3 mmol/L (3.5-5.1); Sodium 138 mmol/L (136-145)
[2018-05-15] MEDS ORDERED: Phytonadione 10 MG/ML AMP SLOW IVP SCH ×2 (16:00→16:15)
[2018-05-15] MEDS ORDERED: ADMIXTURE FEE IV SCH (16:15)
[2018-05-15] MEDS ORDERED: HUMAN PROTHROMBIN COMPLX IV SCH (16:15)
[2018-05-15 16:26] LABS: CK (CPK) 35 U/L (29-168); Lipase 20 U/L (8-78)
--- NOTE | 2018-05-15 16:36 | PDOC.FPRHP ---
- Allergies/Adverse Reactions Allergies Allergy/AdvReac Type Severity Reaction Status Date / Time PEROXIDE Allergy Mild itchy Uncoded 02/15/17 21:43 SILK Allergy Mild itch or Uncoded 02/15/17 21:43 sneeze - Home Medications Medication Instructions Recorded Confirmed Type Allopurinol 2 tab PO DAILY 02/15/17 09/24/17 History Amiodarone [Cordarone] 100 mg PO DAILY 02/15/17 09/24/17 History Ascorbic Acid [C-1000] 500 mg PO DAILY 02/15/17 09/24/17 History Docusate Sodium 100 mg PO DAILY 02/15/17 09/24/17 History Pantoprazole [Protonix] 40 mg PO DAILY 02/15/17 09/24/17 History Pravastatin Sodium [Pravachol] 20 mg PO HS 02/15/17 09/24/17 History Aspirin Chewable [Aspirin Chewable 81 mg PO DAILY #30 tab 02/17/17 09/24/17 Rx Tablet] Cyanocobalamin (Vitamin B-12) 1,000 mcg PO DAILY #30 tab 02/17/17 09/24/17 Rx [Vitamin B-12] Gabapentin 100 mg PO BID 09/17/17 09/24/17 History Levothyroxine [Synthroid] 175 mcg PO DAILY 09/17/17 09/24/17 History Warfarin Sodium 3 mg PO DAILY 09/17/17 09/24/17 History traMADol HCl [Tramadol HCl] 50 mg PO Q6HR PRN 09/17/17 09/24/17 History Carvedilol [Coreg] 3.125 mg PO BID #60 tab 09/20/17 09/24/17 Rx Furosemide [Lasix] 40 mg PO DAILY #30 tab 09/20/17 09/24/17 Rx Iron 27 mg PO DAILY 09/23/17 09/24/17 History Sacubitril/Valsartan [Entresto 97 1 tab PO BID 09/23/17 09/24/17 History mg-103 mg Tablet] Amoxicillin/Potassium Clav 1 each PO BID #10 tablet 09/24/17 09/24/17 Rx [Augmentin 875-125 Tablet] Cholecalciferol [Vitamin D3] 1,000 units PO DAILY tab 10/06/17 Rx - History PMHx: PSHx: FHx: Social: - Vital signs BP: [] HR: [] RR: [] Tmax: [] Pox: []% on [] Wt: [] FMR H&P: Results - Labs Result Diagrams: 05/15/18 14:50 05/15/18 14:50 Lab results: WBC 7.5 thou/uL (4.8-10.8) 05/15/18 14:50 Hgb 10.7 g/dL (12.0-16.0) L 05/15/18 14:50 Hct 34.2 % (36.0-47.0) L 05/15/18 14:50 MCV 102.0 fL (78.0-98.0) H 05/15/18 14:50 Plt Count 173 thou/uL (130-400) 05/15/18 14:50 Neutrophils % 68.7 % (42.0-75.0) 05/15/18 14:50 Sodium 138 mmol/L (136-145) 05/15/18 14:50 Potassium 3.3 mmol/L (3.5-5.1) L 05/15/18 14:50 Chloride 100 mmol/L (98-107) 05/15/18 14:50 Carbon Dioxide 27 mmol/L (23-31) 05/15/18 14:50 BUN 30 mg/dL (9.8-20.1) H 05/15/18 14:50 Creatinine 1.48 mg/dL (0.6-1.1) H 05/15/18 14:50 Glucose 106 mg/dL (83-110) 05/15/18 14:50 Calcium 9.3 mg/dL (7.8-10.44) 05/15/18 14:50 Total Bilirubin 0.6 mg/dL (0.2-1.2) 05/15/18 14:50 AST 13 U/L (5-34) 05/15/18 14:50 ALT 10 U/L (8-55) 05/15/18 14:50 Alkaline Phosphatase 86 U/L (40-150) 05/15/18 14:50 Creatine Kinase 35 U/L (29-168) 05/15/18 14:50 Serum Total Protein 7.0 g/dL (6.0-8.3) 05/15/18 14:50 Albumin 3.8 g/dL (3.4-4.8) 05/15/18 14:50 Lipase 20 U/L (8-78) 05/15/18 14:50 FMR H&P: Upper Level - Plan Date/Time: 05/15/18 2444 I, [], have evaluated this patient and agree with findings/plan as outlined by information technology intern resident. Pertinent changes/additions are listed here.
--- NOTE | 2018-05-15 16:50 | PDOC.FPRHP ---
- History of Present Illness Chief Complaint: bloody bowel movement History of Present Illness: 82 yo F with PMH of afib on AC with Warfarin, hx of LA/CVA, HFrEF, DMII presents for red bloody bowel movement with clots this morning at long term. She says it started 3 days ago. She reports a history of hemorrhoids, but usually blood was streaked on the toilet paper. She reports soft regular stools , she is on a stool softener. She denies dark, tarry stools. Denies hemetamesis , vomiting. Reports she has never had a colonoscopy or an EGD. She reports associated weakness, unable to ambulate to the bathroom and back easily by herself. She has had to use a wheelchair. She denies abdominal pain. She states she takes tylenol for pain, no ibuprofen or aleve. In the ED, she was type and crossed started on 1U pRBCs with 2hr post H&H in preparation for 2nd Unit. Also vit K and K centra - Allergies/Adverse Reactions Allergies Allergy/AdvReac Type Severity Reaction Status Date / Time PEROXIDE Allergy Mild itchy Uncoded 02/15/17 21:43 SILK Allergy Mild itch or Uncoded 02/15/17 21:43 sneeze - Home Medications Medication Instructions Recorded Confirmed Type Amiodarone [Cordarone] 200 mg PO DAILY 02/15/17 05/15/18 History Ascorbic Acid [C-1000] 500 mg PO DAILY 02/15/17 05/15/18 History Docusate Sodium 100 mg PO DAILY 02/15/17 05/15/18 History Pantoprazole [Protonix] 40 mg PO DAILY 02/15/17 05/15/18 History Pravastatin Sodium [Pravachol] 20 mg PO HS 02/15/17 05/15/18 History Aspirin Chewable [Aspirin Chewable 81 mg PO DAILY #30 tab 02/17/17 05/15/18 Rx Tablet] Cyanocobalamin (Vitamin B-12) 1,000 mcg PO DAILY #30 tab 02/17/17 05/15/18 Rx [Vitamin B-12] Gabapentin 100 mg PO BID 09/17/17 05/15/18 History Levothyroxine [Synthroid] 175 mcg PO DAILY 09/17/17 05/15/18 History Warfarin Sodium 2.5 mg PO DAILY 09/17/17 05/15/18 History traMADol HCl [Tramadol HCl] 50 mg PO Q8H PRN 09/17/17 05/15/18 History Furosemide [Lasix] 40 mg PO DAILY #30 tab 09/20/17 05/15/18 Rx Iron 27 mg PO DAILY 09/23/17 05/15/18 History Sacubitril/Valsartan [Entresto 97 1 tab PO BID 09/23/17 05/15/18 History mg-103 mg Tablet] Cholecalciferol [Vitamin D3] 1,000 units PO DAILY tab 10/06/17 05/15/18 Rx Allopurinol [Zyloprim] 200 mg PO QAM 05/15/18 05/15/18 History Carvedilol [Coreg] 3.125 mg PO QAM 05/15/18 05/15/18 History Carvedilol [Coreg] 6.25 mg PO HS 05/15/18 05/15/18 History - History PMHx: Gout, DM2, HTN, CHF (Dr. 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 [facility] since Nov 2017. - Review of Systems General: denies: fever/chills, weight/appetite/sleep changes (no weight changes) Eyes: reports: other (itchy, watery eyes). denies: eye pain ENT: reports: rhinorrhea. denies: nasal congestion, other (no sore throat) Respiratory: reports: cough. denies: congestion, shortness of breath Cardiovascular: denies: chest pain, palpitation Gastrointestinal: reports: diarrhea, GI bleeding. denies: vomiting, constipation, abdominal pain Genitourinary: denies: dysuria, other (hematuria) Skin: reports: lesions (bleeds easily). denies: rashes (no new rashes) Musculoskeletal: reports: arthritis/arthralgias (knees) Neurological: reports: weakness (generalized). denies: numbness, syncope Psychological: denies: anxiety, depression - Vital signs BP: 110/71 HR: 77 RR: 19 Tmax: 97.7 Pox: 100% on 3L Wt: 116.4 kg - Physical Exam Constitutional: NAD, awake, alert and oriented, well developed HEENT: normocephalic and atraumatic, PERRLA, EOMI, conjunctiva clear, no scleral icterus, grossly normal hearing, MMM, oropharynx clear (dentition in place), other (matting in right eye) Neck: supple, FROM, trachea midline, no LAD Heart: RRR, normal S1/S2, no murmurs/rubs/gallops, pulses present (pulses diminishes), other (trace pitting edema) Lungs: CTAB, no respiratory distress, good air movement, no rales/rhonchi, no wheezing Abdomen: soft, non-tender, bowel sounds present, no masses/distention Musculoskeletal: normal structure, normal tone Neurological: no focal deficit, CN II-XII intact, other (strength 5/5 BL upper and lower extremities) Skin: good turgor, other (delayed cap refill, about 2 seconds) Heme/Lymphatic: other (bruising on arms, right hip) Psychiatric: normal mood and affect, good judgment and insight, intact recent and remote memory Additional comment: Rectal exam: Internal hemorroids present, bleeding minimal FMR H&P: Results - Labs Result Diagrams: 05/15/18 20:16 05/15/18 14:50 Lab results: WBC 7.5 thou/uL (4.8-10.8) 05/15/18 14:50 Hgb 10.7 g/dL (12.0-16.0) L 05/15/18 14:50 Hct 34.2 % (36.0-47.0) L 05/15/18 14:50 MCV 102.0 fL (78.0-98.0) H 05/15/18 14:50 Plt Count 173 thou/uL (130-400) 05/15/18 14:50 Neutrophils % 68.7 % (42.0-75.0) 05/15/18 14:50 Sodium 138 mmol/L (136-145) 05/15/18 14:50 Potassium 3.3 mmol/L (3.5-5.1) L 05/15/18 14:50 Chloride 100 mmol/L (98-107) 05/15/18 14:50 Carbon Dioxide 27 mmol/L (23-31) 05/15/18 14:50 BUN 30 mg/dL (9.8-20.1) H 05/15/18 14:50 Creatinine 1.48 mg/dL (0.6-1.1) H 05/15/18 14:50 Glucose 106 mg/dL (83-110) 05/15/18 14:50 Calcium 9.3 mg/dL (7.8-10.44) 05/15/18 14:50 Total Bilirubin 0.6 mg/dL (0.2-1.2) 05/15/18 14:50 AST 13 U/L (5-34) 05/15/18 14:50 ALT 10 U/L (8-55) 05/15/18 14:50 Alkaline Phosphatase 86 U/L (40-150) 05/15/18 14:50 Creatine Kinase 35 U/L (29-168) 05/15/18 14:50 Serum Total Protein 7.0 g/dL (6.0-8.3) 05/15/18 14:50 Albumin 3.8 g/dL (3.4-4.8) 05/15/18 14:50 Lipase 20 U/L (8-78) 05/15/18 14:50 - EKG Interpretation EKG: Rate (beats per minute): 76, Atrial-sensed ventricular-paced rhythm with occasional PVCs., ST segments normal, T waves normal, [place] normal, ND interval 130 ms. QRS duration 164 ms. - Radiology Interpretation Chest x-ray Status: report reviewed by me Additional comment: Cardiomegaly and mild vascular congestion. Some intersitial congestion/edema. AICD leads noted. Small effusions cannot be excluded FMR H&P: A/P - Problem List (1) Hematochezia Current Visit: No Status: Acute Code(s): K92.1 - MELENA Comment: Likely from hemorrhoidal etiology, no recommendations for endoscopy, serial H/H monitoring (2) Afib Current Visit: No Status: Chronic Code(s): I48.91 - UNSPECIFIED ATRIAL FIBRILLATION (3) CKD (chronic kidney disease) stage 4, GFR 15-29 ml/min Current Visit: No Status: Chronic Code(s): N18.4 - CHRONIC KIDNEY DISEASE, STAGE 4 (SEVERE) Comment: Stable currently, avoid nephrotoxic meds and limit contrast exposure (4) DM II (diabetes mellitus, type II), controlled Current Visit: No Status: Chronic Code(s): E11.9 - TYPE 2 DIABETES MELLITUS WITHOUT COMPLICATIONS Comment: ISS, ADA (5) Hypertension Current Visit: No Status: Chronic Code(s): I10 - ESSENTIAL (PRIMARY) HYPERTENSION Comment: On Ionotropes now , will hold AceI, other AntiHtn (6) Hypothyroidism Current Visit: No Status: Chronic Code(s): E03.9 - HYPOTHYROIDISM, UNSPECIFIED (7) Morbid obesity with BMI of 40.0-44.9, adult Current Visit: No Status: Chronic Code(s): E66.01 - MORBID (SEVERE) OBESITY DUE TO EXCESS CALORIES; Z68.41 - BODY MASS INDEX (BMI) 40.0-44.9, ADULT (8) HFrEF (heart failure with reduced ejection fraction) Current Visit: Yes Status: Chronic Code(s): I50.20 - UNSPECIFIED SYSTOLIC ( CONGESTIVE) HEART FAILURE - Plan 82yo female presents from [facility] for symptomatic anemia 2/2 acute GI bleed. Acute Lower GI bleed - Gross blood in ED - VSS - Pt on Chronic Warfarin for afib. Holding Warfarin - Vit K being given in ED - Protonix 40mg BID - Consulted GI - NPO at Midnight - Monitor Hgb with AM CBC - 2U typed and cross. Infusing 1U pRBCs with 2hr post H&H - Due to hx of HFrEF will give 20mg IV lasix after first unit infused. - Admit to tele Bacterial conjunctivitis - Erythromycin ointment Afib on AC with Warfarin - Holding Warfarin in setting of GI bleed - Admit to tele HFrEF - Echo 09/17/2017: EF 20-25% - Hold aspirin - Continue home meds otherwise - HH diet with fluid restriction - Daily wts, strict I&Os CKD - Cr stable - Avoid nephrotoxic meds - Monitor renal function with BMP DM2, not on insulin - Continue home meds - ACHS accuchecks - Mild SSI, hypoglycemic protocol HLD - Continue home meds HTN - Continue home meds Gout Hx of Asthma Hx of LA & CVA - Holding ASA for acute GI bleed - Continue other home meds Former tobacco abuse - 36 PY history, quit in 1988 - Encourage cessation GI ppx: Protonix DVT ppx: SCDs Code status: DNAR, patient does not have out of hospital DNR PCP: Tim FISHER H&P: Upper Level - Pertinent history 82F presenting from [facility] in [facility] after 3 days of worsening hematochezia. She denies any abdominal pain or subjective fevers. She has no history of diverticular disease. She reports a history of hemorrhoids, with mild hematochezia in the remote past. Patient is currently on anticoagulation with warfarin for atrial fibrillation. Patient reports 3 bloody BMs yesterday with another 3 bloody BMs today. She is feeling tired and weak today. She denies hematemesis, vomiting, melena. She has never been screened for colon cancer. ED: NS 500 mL, 2u PRBC, Vit K, Kcentra - Pertinent findings 123/55 mmHg 73 bpm 21 RR 100% on 3L 97.8F Gen: A&Ox3 CV: RRR, no murmurs Pulm: CTA-B Abd: soft; non tender; rectal exam normal H/H: 10.7/34 BUN/Cr: 30/1.5 - Plan Date/Time: 05/15/18 1650 I, Jeffry Camacho, have evaluated this patient and agree with findings/plan as outlined by sales management intern resident. Pertinent changes/additions are listed here. LGIB: no s/s of diverticulitis. Patient is HD stable and is s/p NS bolus, 2u PRBC, Vit K, and Kcentra. GI to be consulted from ED. Will d/c warfarin and ASA. Clear liquid diet at NM in anticipation of endoscopy on Tuesday. Lasix with blood products and f/u H/H. Atrial fibrillation: hold warfarin Addendum - Attending - Attending Attestation Date/Time: 05/15/18 191 I personally evaluated the patient and discussed the management with Dr. Phelps and Dr. Camacho I agree with the History, Examination, Assessment and Plan documented above with any addition or exceptions noted below. 82 yo female with multiple medical problems presents for evaluation of bloody bowel movements for 3 days. Over the past 3 days she notes bloody bowel movements. This morning noted to have buck blood with small clots. Associated with weakness, fatigue, and mild dizziness upon standing. Prior history of blood with wiping and dx with hemorrhoids. Currently on anticoagulants for A fib. No prior hs of EGD or colonoscopy. VS reviewed. Imaging reviewed. Labs reviewed. NAD on exam. Lying in bed. RRR no murmurs CTAB no crackles NT/ND BS present GI bleed: Likely involving lower GI tract. GI consulted for consideration of colonoscopy. Monitor on tele. Currently receiving 1 uPRBCs. Trend labs. Replace products as indicated. HFrEF: Monitor fluid balance closely. Give lasix. Adjust other home meds as needed. Sanam
[2018-05-15 20:39] LABS: Hemoglobin 11.5 g/dL (12.0-16.0); Mean Corpuscular HGB CONC 31.7 g/dL (32.0-36.0); Mean Corpuscular Hemoglobin 31.8 pg (27.0-31.0); Mean Platelet Volume 9.4 fL (7.4-10.4); Platelet Count 129 thou/uL (130-400); RBC Distribution Width 15.6 % (11.5-14.5); Red Blood Cell (RBC) Count 3.62 mill/uL (4.20-5.40); White Blood Cell (WBC) Count 7.3 thou/uL (4.8-10.8)
[2018-05-15] MEDS ORDERED: Dextrose 5% in Water 1,000 ML IV PRN (21:21)
[2018-05-15] MEDS ORDERED: Dextrose 50% Abboject 50 ML SYRINGE SLOW IVP PRN (21:21)
[2018-05-15] MEDS ORDERED: Furosemide 20 MG/2 ML VIAL SLOW IVP SCH (21:21)
[2018-05-15] MEDS ORDERED: HumaLOG 300 UNITS/3 ML VIAL SC PRN (21:21)
[2018-05-15 21:36] LABS: Bilirubin Negative (Negative); Blood, Urine Negative (Negative); Clarity CLEAR (Clear); Glucose, Urine (Dipstick) Negative (Negative); Leukocyte Negative (Negative); Nitrite Negative (Negative); Protein, Urine (Dipstick) Negative (Neg-Trace); Specific Gravity, Urine 1.007 (1.002-1.036)
[2018-05-15] MEDS ORDERED: Carvedilol 6.25 MG TAB PO SCH (22:00)
[2018-05-15] MEDS ORDERED: Sacubitril 49 MG/Valsartan 51 MG TABLET PO SCH (22:00)
[2018-05-15] MEDS ORDERED: Gabapentin 100 MG CAP PO SCH (22:00)
[2018-05-15] MEDS ORDERED: Pravastatin Sodium 20 MG TAB PO SCH (22:00)
[2018-05-15] MEDS ORDERED: Erythromycin Base 0.5% Oint 1 GM TUBE L EYE SCH (22:00)
[2018-05-16 00:23] VITALS: BMI 37.1
--- NOTE | 2018-05-16 02:01 | CON ---
DATE OF CONSULTATION: 05/15/2018 REASON FOR CONSULTATION: GI bleeding. HISTORY OF PRESENT ILLNESS: Elena Paige is an 82-year-old woman, previously seen by my GI colleague, Dr. Nancy Cordon. She has a past medical history of congestive heart failure with EF of 20% to 25% and atrial fibrillation, on chronic anticoagulation with warfarin. She has a history of myocardial infarction and CVA. She is a former smoker. She last saw my colleague, Dr. Nancy Cordon for EGD and colonoscopy back in 2010. EGD at that time showed a small hiatal hernia and colonoscopy showed left-sided diverticulosis and some internal hemorrhoids. The patient reports no chronic gastrointestinal symptoms. Intermittently, she has had a scant amount of rectal bleeding associated with hard stools, which has been thought to be hemorrhoidal in origin. She was evaluated in the hospital by my colleague, Dr. Goldy Sabillon, last September 2017 for single episode of blood in the stool, but this was thought to be hemorrhoidal in origin and she did not undergo endoscopic investigation at that time. The patient was transferred from her halfway today with blood in the stool over the past 3 days. The patient states that this has been much more than usual. She had three bowel movements, which she describes as about half a pint of bright red blood each time yesterday, and then three more bloody bowel movements today. This has been alarming to her. She felt a bit weak and lightheaded and this prompted her presentation here. Laboratory studies have demonstrated hemoglobin of 9.7, which is about her baseline. Two units of RBCs were ordered for her. She has gotten vitamin K and Kcentra, and Coumadin is currently being held. The patient denies any abdominal pain or anal pain with this. There is no nausea or vomiting. She is concerned about the increase in bleeding and worried about significant pathology with this. She states she does not like the Coumadin and does not like the easy bruising that comes with it. She is hemodynamically stable. REVIEW OF SYSTEMS: Full review of systems including constitutional, head, eyes, ears, nose, throat, GI, , cardiovascular, respiratory, musculoskeletal, and neurologic systems is negative except as noted in the HPI. PAST MEDICAL HISTORY: Gout; diabetes, type 2; hypertension; CHF with ejection fraction of 20% to 25%; myocardial infarction in 1988 with stents; asthma; history of CVA four years ago; pacemaker/defibrillator; cholecystectomy; and atrial fibrillation, on Coumadin. FAMILY HISTORY: Her mother had breast cancer. No known family history of colon cancer. SOCIAL HISTORY: She quit smoking in 1988. No alcohol or drug use. She lives in the halfway in [place]. ALLERGIES: PEROXIDE AND SILK. HOME MEDICATIONS: 1. Amiodarone. 2. Vitamin C. 3. Docusate 100 mg daily. 4. Protonix 40 mg daily. 5. Pravachol. 6. Aspirin 81 mg daily. 7. Vitamin B12. 8. Gabapentin. 9. Levothyroxine. 10. Warfarin 2.5 mg daily. 11. Tramadol. 12. Lasix. 13. Iron 27 mg daily. 14. Entresto. 15. Vitamin D3. 16. Allopurinol. 17. Carvedilol. PHYSICAL EXAMINATION: VITAL SIGNS: Pulse 82, blood pressure 103/60, and 95% oxygen saturation on room air. GENERAL: Elderly 82-year-old woman, lying in bed comfortably, in no distress. SKIN: No jaundice. No rashes were palpable. She does have ecchymosis of the upper extremities bilaterally. EYES: No scleral icterus. Extraocular movements intact. ENT: Mucous membranes moist. No oral lesions. LYMPH: No submandibular or supraclavicular lymphadenopathy. Thyroid nontender to palpation. HEART: Regular rate and rhythm. LUNGS: Clear to auscultation bilaterally. ABDOMEN: Bowel sounds present. Soft and nontender to palpation. EXTREMITIES: No peripheral edema. VESSELS: Radial pulses 2+ bilaterally. NEUROLOGIC: Cranial nerves 2 through 12 intact bilaterally. No focal deficits. LABORATORY STUDIES: Hemoglobin 9.7 this morning. On recheck this afternoon, it was 10.7. WBC 7.5 and platelets 173. INR is 2.8. Sodium 138, potassium 3.3, BUN 30, and creatinine 1.48. LFTs normal with total bilirubin 0.6, alkaline phosphatase 86, AST 13, and ALT 10. CK is 35. BNP is elevated at 1216. Albumin 3.8. ASSESSMENT AND PLAN: 1. Lower gastrointestinal bleeding. 2. Chronic anemia. 3. Atrial fibrillation, on chronic anticoagulation with warfarin. The patient has had scant rectal bleeding in the past attributed to hemorrhoids, but this is evidently much larger volume of red blood. The differential would include hemorrhoidal versus diverticular bleed, versus possibly other pathology. Note, she does not have any abdominal pain to go with this, and hemoglobin is near baseline. The patient is interested in further investigation to determine the precise etiology of the bleeding. Particularly as she has been on chronic anticoagulation, I do think colonoscopy would be reasonable, for diagnostic purposes, and also to aid in decision making regarding anticoagulation going forward. I would recommend she be on a clear liquid diet starting tomorrow, reverse her INR, observe for further bleeding, and monitor the H and H. Assuming the INR has dropped satisfactorily tomorrow, we could potentially administer bowel preparation tomorrow evening and perform colonoscopy the following day. I discussed this with the patient in detail and she agrees with the plan. Thank you for the consultation. Please call anytime with questions or concerns. Job ID: [id number]
[2018-05-16] MEDS: traMADol HCl 50 MG TAB PO PRN (03:10)
[2018-05-16] MEDS: Levothyroxine 175 MCG TAB PO SCH (05:38)
[2018-05-16 06:03] LABS: #Eosinphils 0.1 thou/uL (0.0-0.7); #Monocytes 0.4 thou/uL (0.11-0.59); #Neutrophils 5.2 thou/uL (1.40-6.50); %Basophils 0.4 % (0.0-1.0); %Lymphocytes 14.3 % (21.0-51.0); %Monocytes 5.4 % (0.0-10.0); %Neutrophils 77.9 % (42.0-75.0); Hemoglobin 10.9 g/dL (12.0-16.0); Mean Corpuscular Volume 99.9 fL (78.0-98.0); Platelet Count 150 thou/uL (130-400); RBC Distribution Width 15.9 % (11.5-14.5); Red Blood Cell (RBC) Count 3.53 mill/uL (4.20-5.40); White Blood Cell (WBC) Count 6.7 thou/uL (4.8-10.8)
[2018-05-16 06:13] LABS: Anion Gap 12 mmol/L (10-20); BUN (Urea Nitrogen) 27 mg/dL (9.8-20.1); Calc. Creatinine Clearance 58 mL/min (70-130); Calcium 8.9 mg/dL (7.8-10.44); Carbon Dioxide 28 mmol/L (23-31); Chloride 102 mmol/L (98-107); Estimated GFR-MDRD 38; Glucose 116 mg/dL (83-110); Sodium 139 mmol/L (136-145)
--- NOTE | 2018-05-16 06:33 | PDOC.FM ---
- Subjective Subjective: No overnight events. Tolerated blood transfusion. No stools since ED. Reports rectal pain but no abdominal pain. Reports good appetite and would like to eat this morning. She is no clear liquid diet. Agreeable to colonoscopy possibly tomorrow. No concerns. - Objective MAR Reviewed: Yes Vital Signs & Weight: Vital Signs (12 hours) Temp Pulse Resp BP Pulse Ox 05/16/18 05:04 97.7 F 69 16 112/53 L 93 L 05/15/18 23:51 97.8 F 81 20 134/63 96 Weight Weight 110.767 kg I&O: 05/14/18 05/15/18 05/16/18 06:59 06:59 06:59 Intake Total 50 Output Total 450 Balance -400 Result Diagrams: 05/16/18 05:18 05/16/18 05:18 Phys Exam - Physical Examination Constitutional: NAD HEENT: moist MMs Neck: supple Respiratory: no wheezing, clear to auscultation bilateral Cardiovascular: RRR, no significant murmur Gastrointestinal: soft, non-tender, positive bowel sounds Musculoskeletal: no edema Neurological: moves all 4 limbs Psychiatric: normal affect, A&O x 3 Skin: cap refill <2 seconds Dx/Plan (1) Hematochezia Code(s): K92.1 - MELENA Status: Acute (2) Afib Code(s): I48.91 - UNSPECIFIED ATRIAL FIBRILLATION Status: Chronic (3) CKD (chronic kidney disease) stage 4, GFR 15-29 ml/min Code(s): N18.4 - CHRONIC KIDNEY DISEASE, STAGE 4 (SEVERE) Status: Chronic (4) DM II (diabetes mellitus, type II), controlled Code(s): E11.9 - TYPE 2 DIABETES MELLITUS WITHOUT COMPLICATIONS Status: Chronic (5) Hypertension Code(s): I10 - ESSENTIAL (PRIMARY) HYPERTENSION Status: Chronic (6) Hypothyroidism Code(s): E03.9 - HYPOTHYROIDISM, UNSPECIFIED Status: Chronic (7) Morbid obesity with BMI of 40.0-44.9, adult Code(s): E66.01 - MORBID (SEVERE) OBESITY DUE TO EXCESS CALORIES; Z68.41 - BODY MASS INDEX (BMI) 40.0-44.9, ADULT Status: Chronic (8) HFrEF (heart failure with reduced ejection fraction) Code(s): I50.20 - UNSPECIFIED SYSTOLIC (CONGESTIVE) HEART FAILURE Status: Chronic - Plan Plan: 82yo female presents from [facility] for symptomatic anemia 2/2 acute GI bleed. Acute Lower GI bleed - 2/2 hemorrhoids vs diverticular - VSS - Pt on Chronic Warfarin for afib. Holding Warfarin - s/p Vit K in ED - s/p transfusion 1U pRBCs. IV lasix given due to HFrEF - Protonix 40mg BID - Consulted GI, apprec recs - Clear liquids today and possible bowel prep tonight for scope in AM - Monitor CBC & INR Bacterial conjunctivitis - Erythromycin ointment Afib on AC with Warfarin - Holding Warfarin in setting of GI bleed - Monitor INR HFrEF - Echo 09/17/2017: EF 20-25% - Hold aspirin - Continue home meds otherwise - HH diet with fluid restriction - Daily wts, strict I&Os CKD - Cr stable - Avoid nephrotoxic meds - Monitor renal function with BMP DM2, not on insulin - Continue home meds - ACHS accuchecks - Mild SSI, hypoglycemic protocol HLD - Continue home meds HTN - Continue home meds Gout Hx of Asthma Hx of [place] & CVA - Holding ASA for acute GI bleed - Continue other home meds Former tobacco abuse - 36 PY history, quit in 1988 GI ppx: Protonix DVT ppx: SCDs Code status: DNAR, patient does not have out of hospital DNR PCP: Tim
[2018-05-16] MEDS ORDERED: Allopurinol 100 MG TAB PO SCH (09:00)
[2018-05-16] MEDS ORDERED: Non-Formulary Item 1 EACH (Iron [Iron] 27 MG) PO SCH (09:00)
[2018-05-16 09:19] LABS: INR-International Normal Ratio 1.3; PTT 39.4 SEC (22.9-36.1); Prothrombin Time 16.7 SEC (12.0-14.7)
[2018-05-16] MEDS: Carvedilol 3.125 MG TAB PO SCH (09:21)
[2018-05-16] MEDS: Allopurinol 100 MG TAB PO SCH (09:22)
[2018-05-16] MEDS: Sacubitril 49 MG/Valsartan 51 MG TABLET PO SCH ×2 (09:22→19:46)
[2018-05-16] MEDS: Gabapentin 100 MG CAP PO SCH ×2 (09:22→19:45)
[2018-05-16] MEDS: Amiodarone 200 MG TAB PO SCH (09:22)
[2018-05-16] MEDS: Ferrous Sulfate 325 MG TAB PO SCH (09:22)
[2018-05-16] MEDS: Ascorbic Acid 500 mg Chewable Tablet PO SCH (09:22)
[2018-05-16] MEDS: Furosemide 40 MG TAB PO SCH (09:23)
[2018-05-16] MEDS: Potassium Chloride 20 MEQ TAB PO SCH ×2 (09:26→18:00)
[2018-05-16 09:33] LABS: Iron 47 ug/dL (50-170); Iron Binding Capacity, Total 285 mcg/dL (265-497)
[2018-05-16] MEDS: Erythromycin Base 0.5% Oint 1 GM TUBE L EYE SCH ×2 (09:46→19:46)
--- NOTE | 2018-05-16 12:53 | PRG ---
DATE OF SERVICE: 05/16/2018 Ms. Paige is a pleasant 82-year-old lady, who was admitted with rectal bleeding. She is also on Coumadin, and she was given some vitamin K reversal agent via the ER. Her INR this morning is 1.3. She has been seen by the GI Service and they anticipate colonoscopy tomorrow. She was admitted with hemoglobin of 10.7, hematocrit of 34.2 with an MCV of 102. Her preliminary iron studies revealed serum iron of 47, which is low; TIBC of 285, which is low; and a ferritin level of 128. As stated, colonoscopy scheduled for tomorrow. Job ID: [id number]
--- NOTE | 2018-05-16 13:48 | PRG ---
DATE OF SERVICE: 05/16/2018 SUBJECTIVE: Ms. Paige is feeling okay. Still no abdominal or anal pain. She has been hemodynamically stable. She did have one more episode of rectal bleeding today just before lunch. She estimates about a half pint of bright red blood again. She had good reversal of her INR and it is down to 1.3 after 1 unit of RBC transfusion. Hemoglobin is stable at 10.9. OBJECTIVE: VITAL SIGNS: Temperature 97.4, pulse 75, blood pressure 126/58, and 99% oxygen saturation on 2 L by nasal cannula. GENERAL: No acute distress. HEART: Regular rate and rhythm. LUNGS: Clear to auscultation bilaterally. ABDOMEN: Soft and nontender to palpation. EXTREMITIES: No peripheral edema. LABORATORY STUDIES: Hemoglobin 10.9, WBC 6.7, platelets 150. INR down to 1.3. Sodium 139, potassium 3.0, BUN 27, creatinine 1.33, iron 47, TIBC 285, ferritin 127.8, glucose 197. Urinalysis negative. ASSESSMENT AND PLAN: 1. Lower GI bleeding. 2. Chronic anemia. 3. Atrial fibrillation, on chronic anticoagulation with warfarin. The patient's INR is down to 1.3. Bleeding does seem to have slowed down, but she did have an another episode today. We will stick with the plan to go forward with bowel preparation tonight and colonoscopy tomorrow for further investigation. The patient understands and desires to proceed. Further recommendations following colonoscopy tomorrow. Please call anytime with questions or concerns. Job ID: [id number]
[2018-05-16] MEDS ORDERED: GoLYTELY 4,000 ml Bottle PO SCH (18:00)
[2018-05-16] MEDS: Carvedilol 6.25 MG TAB PO SCH (19:45)
[2018-05-16] MEDS: Pravastatin Sodium 20 MG TAB PO SCH (19:49)
[2018-05-17] MEDS: Levothyroxine 175 MCG TAB PO SCH (05:28)
--- NOTE | 2018-05-17 06:11 | PDOC.FM ---
- Subjective Subjective: Feeling well this morning. Bowel prep overnight for colonoscopy this AM. Reports some blood in her stool. Denies dizziness, lightheadedness. Endorses weakness. - Objective MAR Reviewed: Yes Vital Signs & Weight: Vital Signs (12 hours) Temp Pulse Resp BP BP Pulse Ox 05/17/18 04:00 97.3 F L 70 14 97/53 L 88 L 05/17/18 00:14 98.7 F 71 14 87/48 L 93 L 05/16/18 20:08 94 L 05/16/18 19:52 97.7 F 78 20 104/53 L 94 L 05/16/18 19:45 104/53 L Weight Weight 112.219 kg I&O: 05/15/18 05/16/18 05/17/18 06:59 06:59 06:59 Intake Total 50 600 Output Total 450 800 Balance -400 -200 Result Diagrams: 05/17/18 05:53 05/17/18 05:53 Phys Exam - Physical Examination Constitutional: NAD HEENT: moist MMs Neck: supple Respiratory: no wheezing, clear to auscultation bilateral Cardiovascular: RRR, no significant murmur Gastrointestinal: soft, non-tender, positive bowel sounds Musculoskeletal: pulses present Neurological: moves all 4 limbs Psychiatric: normal affect, A&O x 3 Skin: cap refill <2 seconds Dx/Plan (1) Hematochezia Code(s): K92.1 - MELENA Status: Acute (2) Afib Code(s): I48.91 - UNSPECIFIED ATRIAL FIBRILLATION Status: Chronic (3) CKD (chronic kidney disease) stage 4, GFR 15-29 ml/min Code(s): N18.4 - CHRONIC KIDNEY DISEASE, STAGE 4 (SEVERE) Status: Chronic (4) DM II (diabetes mellitus, type II), controlled Code(s): E11.9 - TYPE 2 DIABETES MELLITUS WITHOUT COMPLICATIONS Status: Chronic (5) Hypertension Code(s): I10 - ESSENTIAL (PRIMARY) HYPERTENSION Status: Chronic (6) Hypothyroidism Code(s): E03.9 - HYPOTHYROIDISM, UNSPECIFIED Status: Chronic (7) Morbid obesity with BMI of 40.0-44.9, adult Code(s): E66.01 - MORBID (SEVERE) OBESITY DUE TO EXCESS CALORIES; Z68.41 - BODY MASS INDEX (BMI) 40.0-44.9, ADULT Status: Chronic (8) HFrEF (heart failure with reduced ejection fraction) Code(s): I50.20 - UNSPECIFIED SYSTOLIC (CONGESTIVE) HEART FAILURE Status: Chronic - Plan Plan: 82yo female presents from [facility] for symptomatic anemia 2/2 acute GI bleed. Acute Lower GI bleed - 2/2 hemorrhoids vs diverticular - Pt on Chronic Warfarin for afib. Holding Warfarin & ASA - s/p Vit K & 1U pRBCs in ED - Protonix 40mg BID - Consulted GI, apprec recs - Plan for colonoscopy today - Monitor CBC & INR Bacterial conjunctivitis - Erythromycin ointment Afib on AC with Warfarin - Holding Warfarin in setting of GI bleed - Monitor INR HFrEF - Echo 09/17/2017: EF 20-25% - Hold aspirin - Continue home meds otherwise - HH diet with fluid restriction - Daily wts, strict I&Os CKD - Cr stable - Avoid nephrotoxic meds - Monitor renal function with BMP DM2, not on insulin - Continue home meds - ACHS accuchecks - Mild SSI, hypoglycemic protocol HLD - Continue home meds HTN - Continue home meds Gout Hx of Asthma Hx of [place] & CVA - Holding ASA for acute GI bleed - Continue other home meds Former tobacco abuse - 36 PY history, quit in 1988 GI ppx: Protonix DVT ppx: SCDs Code status: DNAR, patient does not have out of hospital DNR PCP: Tim
[2018-05-17 06:28] LABS: #Eosinphils 0.2 thou/uL (0.0-0.7); #Lymphocytes 1.3 thou/uL (1.20-3.40); #Monocytes 0.5 thou/uL (0.11-0.59); #Neutrophils 4.9 thou/uL (1.40-6.50); %Basophils 0.6 % (0.0-1.0); %Eosinophils 2.3 % (0.0-10.0); %Monocytes 6.8 % (0.0-10.0); %Neutrophils 71.3 % (42.0-75.0); Hemoglobin 11.6 g/dL (12.0-16.0); Mean Corpuscular Hemoglobin 31.6 pg (27.0-31.0); Mean Platelet Volume 9.7 fL (7.4-10.4); Platelet Count 150 thou/uL (130-400); RBC Distribution Width 15.9 % (11.5-14.5); Red Blood Cell (RBC) Count 3.68 mill/uL (4.20-5.40); White Blood Cell (WBC) Count 6.9 thou/uL (4.8-10.8)
[2018-05-17 06:49] LABS: Anion Gap 19 mmol/L (10-20); BUN (Urea Nitrogen) 24 mg/dL (9.8-20.1); Calc. Creatinine Clearance 62 mL/min (70-130); Carbon Dioxide 21 mmol/L (23-31); Chloride 105 mmol/L (98-107); Estimated GFR-MDRD 40; Glucose 97 mg/dL (83-110); Potassium 4.7 mmol/L (3.5-5.1); Sodium 140 mmol/L (136-145)
[2018-05-17] MEDS: Furosemide 40 MG TAB PO SCH (08:25)
[2018-05-17] MEDS: Carvedilol 3.125 MG TAB PO SCH (08:25)
[2018-05-17] MEDS: Sacubitril 49 MG/Valsartan 51 MG TABLET PO SCH ×2 (08:26→21:40)
[2018-05-17] MEDS: Allopurinol 100 MG TAB PO SCH (10:01)
[2018-05-17] MEDS: Ferrous Sulfate 325 MG TAB PO SCH (10:01)
[2018-05-17] MEDS: Potassium Chloride 20 MEQ TAB PO SCH ×2 (10:02→17:23)
[2018-05-17] MEDS: Amiodarone 200 MG TAB PO SCH (10:02)
[2018-05-17] MEDS: Erythromycin Base 0.5% Oint 1 GM TUBE L EYE SCH ×2 (10:02→21:41)
[2018-05-17] MEDS: Gabapentin 100 MG CAP PO SCH ×2 (10:02→21:43)
[2018-05-17] MEDS: Ascorbic Acid 500 mg Chewable Tablet PO SCH (10:02)
--- NOTE | 2018-05-17 11:51 | PRG ---
DATE OF SERVICE: 05/17/2018 Ms. Paige is in a very good mood this morning. She is awaiting her colonoscopy, which is to occur at approximately 1.30 this afternoon. Her hemoglobin and hematocrit are stable. Her anemia really is more consistent with anemia of chronic disease and this will likely need further outpatient workup after we determine and treat the source of her GI bleed. Job ID: [id number]
[2018-05-17 12:24] LABS: INR-International Normal Ratio 1.2; PTT 30.7 SEC (22.9-36.1); Prothrombin Time 15.3 SEC (12.0-14.7)
[2018-05-17] MEDS ORDERED: Ondansetron HCl/PF 4 MG/2 ML Vial IVP PRN (14:12)
[2018-05-17] MEDS ORDERED: PROPOFOL 200 MG/20 ML VIAL ONE (14:58)
[2018-05-17] MEDS ORDERED: Lidocaine 1% PF 5 ML VIAL ONE (14:58)
--- NOTE | 2018-05-17 15:24 | OP ---
DATE OF PROCEDURE: 05/17/2018 PREOPERATIVE DIAGNOSIS: GI bleed. DESCRIPTION OF PROCEDURE: After informed consent was obtained, the patient was placed in the left lateral decubitus position. Anesthesia was administered per the Anesthesia Department. Forward-viewing endoscope was inserted in the rectum after perianal inspection and rectal exam were normal and passed to the cecum with ease. The cecum, ileocecal valve, and appendiceal orifice were normal. The prep was good. The ascending, transverse, descending, sigmoid, and rectum were normal except for the following abnormalities. Diffuse diverticulosis coli noted. There was melanosis coli diffusely as well. Internal and external hemorrhoids were noted. There was some bloody affluent in the distal rectum, but no actively bleeding hemorrhoids. ASSESSMENT: 1. Internal and external hemorrhoids-most likely the source of the patient's bleeding (bloody effluent in the distal rectum without other etiology). 2. Diffuse diverticulosis coli. 3. Diffuse melanosis coli. 4. Otherwise, normal colonoscopy. RECOMMENDATIONS: 1. Daily fiber supplementation. 2. Okay to resume warfarin. 3. Stable for discharge from GI standpoint. Job ID: [id number]
[2018-05-17] MEDS ORDERED: Acetaminophen 325 MG TAB PO PRN (16:33)
[2018-05-17] MEDS ORDERED: Warfarin Sodium 2.5 MG TAB PO SCH (17:00)
[2018-05-17] MEDS: Carvedilol 6.25 MG TAB PO SCH (21:43)
[2018-05-17] MEDS: Pravastatin Sodium 20 MG TAB PO SCH (21:43)
[2018-05-17] MEDS: traMADol HCl 50 MG TAB PO PRN (21:48)
[2018-05-18] MEDS: traMADol HCl 50 MG TAB PO PRN (05:36)
[2018-05-18] MEDS: Levothyroxine 175 MCG TAB PO SCH (05:36)
--- NOTE | 2018-05-18 06:00 | PDOC.FM ---
- Subjective Subjective: No overnight events. Feeling well and ready to go back home. She had some rectal bleeding immediately after the procedure but reports none since. She also has complaint of urinary retention. Bladder scan overnight revealed 200's. Will monitor today. Denied dizziness, lightheadedness. - Objective MAR Reviewed: Yes Vital Signs & Weight: Vital Signs (12 hours) Temp Pulse Resp BP BP BP Pulse Ox 05/18/18 03:39 97.7 F 73 16 112/56 L 95 05/17/18 21:43 104/53 L 05/17/18 21:33 97.3 F L 84 18 101/56 L 92 L Weight Weight 108.862 kg I&O: 05/16/18 05/17/18 05/18/18 06:59 06:59 06:59 Intake Total 50 600 650 Output Total 450 800 850 Balance -400 -200 -200 Result Diagrams: 05/18/18 08:14 05/18/18 08:14 Phys Exam - Physical Examination Constitutional: NAD HEENT: moist MMs Neck: supple Respiratory: no wheezing, clear to auscultation bilateral Cardiovascular: RRR 2/6 systolic murmur Gastrointestinal: soft, non-tender, positive bowel sounds Musculoskeletal: pulses present Neurological: moves all 4 limbs Psychiatric: normal affect, A&O x 3 Skin: normal turgor Dx/Plan (1) Hematochezia Code(s): K92.1 - MELENA Status: Acute (2) Afib Code(s): I48.91 - UNSPECIFIED ATRIAL FIBRILLATION Status: Chronic (3) CKD (chronic kidney disease) stage 4, GFR 15-29 ml/min Code(s): N18.4 - CHRONIC KIDNEY DISEASE, STAGE 4 (SEVERE) Status: Chronic (4) DM II (diabetes mellitus, type II), controlled Code(s): E11.9 - TYPE 2 DIABETES MELLITUS WITHOUT COMPLICATIONS Status: Chronic (5) Hypertension Code(s): I10 - ESSENTIAL (PRIMARY) HYPERTENSION Status: Chronic (6) Hypothyroidism Code(s): E03.9 - HYPOTHYROIDISM, UNSPECIFIED Status: Chronic (7) Morbid obesity with BMI of 40.0-44.9, adult Code(s): E66.01 - MORBID (SEVERE) OBESITY DUE TO EXCESS CALORIES; Z68.41 - BODY MASS INDEX (BMI) 40.0-44.9, ADULT Status: Chronic (8) HFrEF (heart failure with reduced ejection fraction) Code(s): I50.20 - UNSPECIFIED SYSTOLIC (CONGESTIVE) HEART FAILURE Status: Chronic - Plan Plan: 82yo female presents from [facility] for symptomatic anemia 2/2 acute GI bleed. Acute Lower GI bleed 2/2 Internal & External hemorrhoids - Resumed Warfarin, monitor INR - s/p Vit K & 1U pRBCs in ED - Protonix 40mg BID - Consulted GI, apprec recs - Colonoscopy notable for internal & external hemorrhoids, diffuse diverticulosis & melanosis coli Bacterial conjunctivitis - Erythromycin ointment Afib on AC with Warfarin - Resumed Warfarin - Monitor INR HFrEF - Echo 09/17/2017: EF 20-25% - Continue home ASA - Continue home meds otherwise - HH diet with fluid restriction - Daily wts, strict I&Os CKD - Cr stable - Avoid nephrotoxic meds - Monitor renal function with BMP DM2, not on insulin - Continue home meds - ACHS accuchecks - Mild SSI, hypoglycemic protocol HLD - Continue home meds HTN - Continue home meds Gout Hx of Asthma Hx of [place] & CVA - Holding ASA for acute GI bleed - Continue other home meds Former tobacco abuse - 36 PY history, quit in 1988 GI ppx: Protonix DVT ppx: SCDs Code status: DNAR, patient does not have out of hospital DNR PCP: Tim
[2018-05-18 08:22] LABS: #Basophils 0.1 thou/uL (0.0-0.2); #Eosinphils 0.1 thou/uL (0.0-0.7); #Lymphocytes 1.3 thou/uL (1.20-3.40); #Monocytes 0.4 thou/uL (0.11-0.59); #Neutrophils 4.3 thou/uL (1.40-6.50); %Basophils 0.9 % (0.0-1.0); %Eosinophils 2.2 % (0.0-10.0); %Lymphocytes 21.1 % (21.0-51.0); %Monocytes 6.6 % (0.0-10.0); %Neutrophils 69.2 % (42.0-75.0); Hemoglobin 10.9 g/dL (12.0-16.0); Mean Corpuscular HGB CONC 31.2 g/dL (32.0-36.0); Mean Corpuscular Hemoglobin 31.9 pg (27.0-31.0); Mean Platelet Volume 8.8 fL (7.4-10.4); Platelet Count 137 thou/uL (130-400); RBC Distribution Width 15.6 % (11.5-14.5); Red Blood Cell (RBC) Count 3.41 mill/uL (4.20-5.40); White Blood Cell (WBC) Count 6.3 thou/uL (4.8-10.8)
[2018-05-18 08:30] LABS: INR-International Normal Ratio 1.3; PTT 40.2 SEC (22.9-36.1); Prothrombin Time 16.2 SEC (12.0-14.7)
[2018-05-18 08:32] VITALS: TEMP 98.1
[2018-05-18 08:40] LABS: Anion Gap 14 mmol/L (10-20); BUN (Urea Nitrogen) 25 mg/dL (9.8-20.1); Calc. Creatinine Clearance 52 mL/min (70-130); Carbon Dioxide 28 mmol/L (23-31); Chloride 104 mmol/L (98-107); Estimated GFR-MDRD 35; Glucose 111 mg/dL (83-110); Potassium 3.8 mmol/L (3.5-5.1); Sodium 142 mmol/L (136-145)
[2018-05-18] MEDS ORDERED: Aspirin Chewable 81 MG TAB PO SCH (09:00)
[2018-05-18] MEDS: Erythromycin Base 0.5% Oint 1 GM TUBE L EYE SCH (09:07)
[2018-05-18] MEDS: Gabapentin 100 MG CAP PO SCH (09:08)
[2018-05-18] MEDS: Ascorbic Acid 500 mg Chewable Tablet PO SCH (09:08)
[2018-05-18] MEDS: Allopurinol 100 MG TAB PO SCH (09:08)
[2018-05-18] MEDS: Potassium Chloride 20 MEQ TAB PO SCH (09:08)
[2018-05-18] MEDS: Amiodarone 200 MG TAB PO SCH (09:08)
[2018-05-18] MEDS: Sacubitril 49 MG/Valsartan 51 MG TABLET PO SCH (09:09)
[2018-05-18] MEDS: Ferrous Sulfate 325 MG TAB PO SCH (09:09)
[2018-05-18] MEDS: Carvedilol 3.125 MG TAB PO SCH (09:10)
[2018-05-18] MEDS: Furosemide 40 MG TAB PO SCH (09:10)
--- NOTE | 2018-05-18 12:48 | PRG ---
DATE OF SERVICE: 05/18/2018 Ms. Paige had her colonoscopy with findings of diverticulosis with no bleeding. She was also noted to have the aforementioned external hemorrhoids. These appeared to be the source of her blood loss and will be treated with Proctocream. Otherwise, she is ready for discharge as her hemoglobin this morning was 10.9, hematocrit 34.9. Job ID: [id number]
[2018-05-18 13:06] VITALS: BP 108/58
--- NOTE | 2018-05-20 01:47 | DIS ---
DATE OF ADMISSION: 05/15/2018 DATE OF DISCHARGE: 05/18/2018 CONSULT: GI, Dr. Gibson. PROCEDURES: 1. Chest x-ray, cardiomegaly and mild vascular congestion, possibly some interstitial congestion, edema small effusions cannot be excluded. 2. Colonoscopy, internal and external hemorrhoids, most likely the source of the patient's bleeding, bloody effluent in the distal rectum without other etiology. Diffuse diverticulosis coli. Diffuse melanosis coli. Otherwise normal colonoscopy. PRIMARY DIAGNOSIS: Acute lower gastrointestinal bleed secondary to internal and external hemorrhoids. SECONDARY DIAGNOSES: 1. Bacterial conjunctivitis. 2. Atrial fibrillation, on anticoagulation with warfarin. 3. Heart failure with reduced ejection fraction. 4. Chronic kidney disease. 5. Type 2 diabetes. 6. Hyperlipidemia. 7. Hypertension. 8. Gout. 9. History of asthma. 10. History of myocardial infarction. 11. Formal tobacco abuse. DISCHARGE MEDICATIONS: 1. Allopurinol 200 mg q.a.m. 2. Amiodarone 100 mg daily. 3. Vitamin C 1000 mg daily. 4. Aspirin 81 mg daily. 5. Coreg 3.125 q.a.m. 6. Coreg 6.25 at bedtime. 7. Lasix 40 mg b.i.d. 8. Colace 100 mg p.o. daily. 9. Gabapentin 100 mg b.i.d. 10. Hydrocortisone 1 application daily for 7 days. 11. Iron 27 mg daily. 12. Synthroid 300 mcg daily. 13. Protonix 40 mg daily. 14. Pravastatin 20 mg at bedtime. 15. Entresto 1 tablet b.i.d. 16. Tramadol 50 mg q.6 hours p.r.n. 17. Warfarin 2.5 mg p.o. daily. HISTORY OF PRESENT ILLNESS/HOSPITAL COURSE: Ms. Paige is an 82-year-old female who presented to the ED from [facility] for acute rectal bleeding. She said it started 3 days prior, but had acutely worsened last day. She has a history of hemorrhoids, but previously large amount of stool. She has never had a colonoscopy or an EGD in the past. Denies abdominal pain. She is on chronic anticoagulation with warfarin for her atrial fibrillation. In the ED, initial labs were notable for hemoglobin 10.7, INR 2.8, potassium 3.3, and creatinine 1.48. BNP 1216.6, although the patient is Entresto. She received 1 unit of packed red blood cells, vitamin, Kcentra. Vital signs were stable. She was started on Protonix 40 mg b.i.d. GI was consulted, who performed a colonoscopy that was notable for internal and external hemorrhoids. Warfarin and aspirin were resumed. She was noted to have bacterial conjunctivitis treated with erythromycin ointment. Her anemia was worked up with iron studies notable for low iron 47, normal TIBC, and ferritin. Her chronic medical conditions of heart failure with reduced ejection fraction, CKD, type 2 diabetes, hyperlipidemia, hypertension, gout, and asthma were managed with home medications. DISPOSITION: Stable. DISCHARGE INSTRUCTIONS: LOCATION: [facility]. DIET: Heart healthy, fluid restriction. ACTIVITY: As tolerated. FOLLOWUP: Follow up with Dr. Dumont within the next 7 days. Job ID: [id number]
--- NOTE | 2018-05-20 13:44 | EKG ---
Test Reason : Blood Pressure : / mmHG Vent. Rate : 076 BPM Atrial Rate : 076 BPM P-R Int : 130 ms QRS Dur : 164 ms QT Int : 496 ms P-R-T Axes : 061 -02 083 degrees QTc Int : 558 ms Atrial-sensed ventricular-paced rhythm with occasional Premature ventricular complexes Abnormal ECG Confirmed by STEVIE PINK, BERNARD ([id number]), material expeditor ANSON DALTON ([id number]) on 05/20/2018 1:44:16 PM Referred By: Confirmed By:BERNARD HUBBARD MD
== END 2018-05-18 13:00 | DRG 394 ==
LOC: ERS 12:27 → ERHOLD 16:50 → 2NO 23:35
PROVIDERS: ADMIT Family Medicine; ATTEND Family Medicine
PROC: 30233N1 Transfusion of Nonautologous Red Blood Cells into Peripheral Vein, Percutaneous Approach (ICD-10-PCS; 2018-05-15)
PROC: 0DJD8ZZ Inspection of Lower Intestinal Tract, Via Natural or Artificial Opening Endoscopic (ICD-10-PCS; principal; 2018-05-17)
DX: K64.8 Other hemorrhoids (principal); I13.0 Hypertensive heart and chronic kidney disease with heart failure and stage 1 through stage 4 chronic kidney disease, or unspecified chronic kidney disease; N18.4 Chronic kidney disease, stage 4 (severe); I50.20 Unspecified systolic (congestive) heart failure; K64.4 Residual hemorrhoidal skin tags; K57.30 Diverticulosis of large intestine without perforation or abscess without bleeding; K63.89 Other specified diseases of intestine; I48.91 Unspecified atrial fibrillation; E11.22 Type 2 diabetes mellitus with diabetic chronic kidney disease; M10.9 Gout, unspecified; J45.909 Unspecified asthma, uncomplicated; E03.9 Hypothyroidism, unspecified; E66.01 Morbid (severe) obesity due to excess calories; D63.1 Anemia in chronic kidney disease; R33.9 Retention of urine, unspecified; I25.2 Old myocardial infarction; Z86.73 Personal history of transient ischemic attack (TIA), and cerebral infarction without residual deficits; Z90.49 Acquired absence of other specified parts of digestive tract; Z95.0 Presence of cardiac pacemaker; Z87.891 Personal history of nicotine dependence; Z68.36 Body mass index [BMI] 36.0-36.9, adult
CPT/HCPCS: 36415; 36416; 36430; 51701; 71045; 80048; 80053; 81003; 82274; 82550; 82728; 82947; 83540; 83550; 83690; 83880; 84484; 85025; 85610; 85730; 86850; 86900; 86901; 93005; 96361; 96374; 96375; A4353; C9132; J2001; J2704; J3430; P9016

== ENCOUNTER 2018-07-17 11:06 | Inpatient (IN) | payer MEDICARE, MEDICAID ==
--- NOTE | 2018-07-17 11:49 | RAD ---
XR Chest 1 View Portable HISTORY: Chest pain COMPARISON: 05/15/2018 FINDINGS: The heart is enlarged. The aorta is tortuous. Left-sided AICD remains in place. Mild pulmon giovanny vascular congestion is again seen. No lobar consolidation, pneumothoraces or large effusions are identified.
[2018-07-17 12:30] LABS: #Eosinphils 0.1 thou/uL (0.0-0.7); #Neutrophils 7.3 thou/uL (1.40-6.50); %Basophils 0.1 % (0.0-1.0); %Eosinophils 0.6 % (0.0-10.0); %Lymphocytes 10.5 % (21.0-51.0); %Monocytes 10.5 % (0.0-10.0); %Neutrophils 78.3 % (42.0-75.0); Hemoglobin 10.5 g/dL (12.0-16.0); Mean Corpuscular HGB CONC 30.9 g/dL (32.0-36.0); Mean Corpuscular Hemoglobin 31.2 pg (27.0-31.0); Mean Platelet Volume 9.3 fL (7.4-10.4); Platelet Count 150 thou/uL (130-400); RBC Distribution Width 16.4 % (11.5-14.5); Red Blood Cell (RBC) Count 3.38 mill/uL (4.20-5.40); White Blood Cell (WBC) Count 9.3 thou/uL (4.8-10.8)
[2018-07-17 12:49] LABS: ALT (SGPT) 9 U/L (8-55); AST (SGOT) 9 U/L (5-34); Albumin 3.8 g/dL (3.4-4.8); Alkaline Phosphatase 96 U/L (40-150); Anion Gap 16 mmol/L (10-20); BUN (Urea Nitrogen) 49 mg/dL (9.8-20.1); Bilirubin, Total 0.8 mg/dL (0.2-1.2); Calc. Creatinine Clearance 0 mL/min (70-130); Calcium 9.2 mg/dL (7.8-10.44); Carbon Dioxide 24 mmol/L (23-31); Chloride 105 mmol/L (98-107); Estimated GFR-MDRD 28; Globulin 2.9 g/dL (2.4-3.5); Glucose 133 mg/dL (83-110); Potassium 4.1 mmol/L (3.5-5.1); Protein, Total 6.7 g/dL (6.0-8.3); Sodium 141 mmol/L (136-145)
[2018-07-17 12:50] LABS: INR-International Normal Ratio 2.7
[2018-07-17 12:51] LABS: PTT 47.9 SEC (22.9-36.1)
[2018-07-17 12:53] LABS: Troponin I 0.043 ng/mL (< 0.028)
[2018-07-17] MEDS ORDERED: Furosemide 40 MG/4 ML VIAL ONE (14:24)
--- NOTE | 2018-07-17 14:30 | PDOC.FPRHP ---
- History of Present Illness Chief Complaint: chest pain History of Present Illness: 82 yo F with PMH CHF, HTN, DM2, CAD presents after visit to HF clinic earlier today. Reports chest pain that began yesterday morning. Center of chest that radiates down L torso and R side of torso down to R hip. Describes it as "black pleurisy" that is in front. Also described as pressure. Was intermittent and then became constant this am before going to HF clinic. No aggravating or alleviating factors. Not affected by activity. Never had this before. Denies N/V , numbness, tingling. Says legs feel heavy and has noticed increased swelling the past 3 weeks. Denies having swelling like this before. No SOB or orthopnea. Sleeping with 2 pillows and on 2L which is baseline. Denies change in diet though does not seem to be compliant with fluid restriction. ED Course: Lasix 40mg IV - Allergies/Adverse Reactions Allergies Allergy/AdvReac Type Severity Reaction Status Date / Time PEROXIDE Allergy Mild itchy Uncoded 02/15/17 21:43 SILK Allergy Mild itch or Uncoded 02/15/17 21:43 sneeze - Home Medications Medication Instructions Recorded Confirmed Type Amiodarone [Cordarone] 100 mg PO DAILY 02/15/17 05/16/18 History Ascorbic Acid [C-1000] 1,000 mg PO DAILY 02/15/17 05/16/18 History Docusate Sodium 100 mg PO DAILY 02/15/17 05/15/18 History Pantoprazole [Protonix] 40 mg PO DAILY 02/15/17 05/15/18 History Pravastatin Sodium [Pravachol] 20 mg PO HS 02/15/17 05/15/18 History Aspirin Chewable [Aspirin Chewable 81 mg PO DAILY #30 tab 02/17/17 05/15/18 Rx Tablet] Gabapentin 100 mg PO BID 09/17/17 05/15/18 History Levothyroxine [Synthroid] 300 mcg PO QAM 09/17/17 05/16/18 History Warfarin Sodium 2.5 mg PO DAILY 09/17/17 05/15/18 History traMADol HCl [Tramadol HCl] 50 mg PO Q6H PRN 09/17/17 05/16/18 History Iron 27 mg PO DAILY 09/23/17 05/15/18 History Sacubitril/Valsartan [Entresto 97 1 tab PO BID 09/23/17 05/15/18 History mg-103 mg Tablet] Allopurinol [Zyloprim] 200 mg PO QAM 05/15/18 05/15/18 History Carvedilol [Coreg] 3.125 mg PO QAM 05/15/18 05/15/18 History Carvedilol [Coreg] 6.25 mg PO HS 05/15/18 05/15/18 History Acetaminophen [Tylenol] 650 mg PO Q6HR PRN 05/16/18 05/16/18 History Docusate [Colace] 100 mg PO DAILY 05/16/18 05/16/18 History Furosemide [Lasix] 40 mg PO BID 05/16/18 05/16/18 History Furosemide [Lasix] 40 mg PO DAILY tab 05/18/18 Rx Hydrocortisone [Proctocort 1% 1 applic OK DAILY 7 Days #1 tube 05/18/18 Rx Cream] - History PMHx: gout, DM2, HTN, CHF (Dr. Aquino), [place] in 1988 with stents, asthma, hx stroke with weakness in Rt hand (4 years ago) PSHx: AICD, cholecystectomy, R great toe surgery FHx: father - CAD/PVD, mother- breast cancer (80 yrs), mother CHF Social: No alcohol or drug use. Former smoker, quit 1988 (30 pack year hx) - Review of Systems General: denies: fever/chills Eyes: denies: vision changes ENT: denies: nasal congestion Respiratory: denies: cough, shortness of breath Cardiovascular: reports: chest pain, edema. denies: palpitation, orthopnea Gastrointestinal: denies: nausea, vomiting, diarrhea, constipation, abdominal pain Genitourinary: denies: dysuria Skin: denies: lesions Musculoskeletal: reports: pain (hip), swelling Neurological: denies: numbness, weakness - Vital signs BP: 116/57 HR: 95 RR: 18 Tmax: 98.4 Pox: 95% on 3L Wt: 108 kg - Physical Exam Constitutional: NAD, awake, alert and oriented (obese) HEENT: normocephalic and atraumatic, other (dry mucus membranes) Heart: RRR, normal S1/S2, no murmurs/rubs/gallops, other (3+ pitting edema, extends nearly up to hips b/l) Lungs: CTAB, no respiratory distress, no rales/rhonchi, no wheezing Abdomen: soft, non-tender, bowel sounds present Musculoskeletal: normal structure, normal tone Neurological: no focal deficit Skin: no rash/lesions, good turgor, capillary refill <2 seconds Heme/Lymphatic: no unusual bruising or bleeding Psychiatric: normal mood and affect FMR H&P: Results - Labs Result Diagrams: 07/17/18 12:15 07/17/18 12:15 Lab results: WBC 9.3 thou/uL (4.8-10.8) 07/17/18 12:15 Hgb 10.5 g/dL (12.0-16.0) L 07/17/18 12:15 Hct 34.1 % (36.0-47.0) L 07/17/18 12:15 MCV 101.0 fL (78.0-98.0) H 07/17/18 12:15 Plt Count 150 thou/uL (130-400) 07/17/18 12:15 Neutrophils % 78.3 % (42.0-75.0) H 07/17/18 12:15 Sodium 141 mmol/L (136-145) 07/17/18 12:15 Potassium 4.1 mmol/L (3.5-5.1) 07/17/18 12:15 Chloride 105 mmol/L (98-107) 07/17/18 12:15 Carbon Dioxide 24 mmol/L (23-31) 07/17/18 12:15 BUN 49 mg/dL (9.8-20.1) H 07/17/18 12:15 Creatinine 1.77 mg/dL (0.6-1.1) H 07/17/18 12:15 Glucose 133 mg/dL (83-110) H 07/17/18 12:15 Calcium 9.2 mg/dL (7.8-10.44) 07/17/18 12:15 Total Bilirubin 0.8 mg/dL (0.2-1.2) 07/17/18 12:15 AST 9 U/L (5-34) 07/17/18 12:15 ALT 9 U/L (8-55) 07/17/18 12:15 Alkaline Phosphatase 96 U/L (40-150) 07/17/18 12:15 B-Natriuretic Peptide 2958.1 pg/mL (0-100) H 07/17/18 12:15 Serum Total Protein 6.7 g/dL (6.0-8.3) 07/17/18 12:15 Albumin 3.8 g/dL (3.4-4.8) 07/17/18 12:15 FMR H&P: A/P - Problem List (1) Atypical chest pain Current Visit: Yes Status: Acute Code(s): R07.89 - OTHER CHEST PAIN (2) Acute on chronic systolic CHF (congestive heart failure) Current Visit: Yes Status: Acute Code(s): I50.23 - ACUTE ON CHRONIC SYSTOLIC (CONGESTIVE) HEART FAILURE Comment: Continue Lasix 40mg IV BID, monitor I/O's, daily weight, EF 20-25% (3) Afib Current Visit: No Status: Chronic Code(s): I48.91 - UNSPECIFIED ATRIAL FIBRILLATION (4) Anemia, macrocytic Current Visit: Yes Status: Chronic Code(s): D53.9 - NUTRITIONAL ANEMIA, UNSPECIFIED Comment: Serial CBC (5) CKD (chronic kidney disease) stage 4, GFR 15-29 ml/min Current Visit: Yes Status: Chronic Code(s): N18.4 - CHRONIC KIDNEY DISEASE, STAGE 4 (SEVERE) Comment: Stable currently, avoid nephrotoxic meds and limit contrast exposure (6) DM II (diabetes mellitus, type II), controlled Current Visit: Yes Status: Chronic Code(s): E11.9 - TYPE 2 DIABETES MELLITUS WITHOUT COMPLICATIONS Comment: ISS, ADA (7) HFrEF (heart failure with reduced ejection fraction) Current Visit: Yes Status: Chronic Code(s): I50.20 - UNSPECIFIED SYSTOLIC ( CONGESTIVE) HEART FAILURE (8) Hypertension Current Visit: Yes Status: Chronic Code(s): I10 - ESSENTIAL (PRIMARY) HYPERTENSION Comment: On Ionotropes now , will hold AceI, other AntiHtn (9) Hypothyroidism Current Visit: Yes Status: Chronic Code(s): E03.9 - HYPOTHYROIDISM, UNSPECIFIED (10) Ischemic cardiomyopathy Current Visit: Yes Status: Chronic Code(s): I25.5 - ISCHEMIC CARDIOMYOPATHY (11) Morbid obesity with BMI of 40.0-44.9, adult Current Visit: Yes Status: Chronic Code(s): E66.01 - MORBID (SEVERE) OBESITY DUE TO EXCESS CALORIES; Z68.41 - BODY MASS INDEX (BMI) 40.0-44.9, ADULT (12) Gout Current Visit: Yes Status: Chronic Code(s): M10.9 - GOUT, UNSPECIFIED - Plan 82 yo F with PMH HFrEF, HTN, CAD, KS is admitted for chest pain work up and CHF exacerbation. HFrEF exacerbation - last echo 09/2017 with EF 20-25%, diastolic dysfunction - BNP 2900 with anasarca up to hips. On home O2 of 2L. - s/p 40 mg IV lasix in ED - continue IV diuresis, monitor I/Os - NPO at midnight and will consult her wallpaper inspector and shipper, Dr. Aquino, in the am Atypical chest pain, now resolved - Heart score 5 - trop 0.043, will continue to trend - EKG was ventricular paced CKD3/4 - will monitor Cr on am labs considering diuresis HFrEF s/p AICD - consult heart failure team - continue home entresto. Hold home BB for now. HLD - continue statin Hypothyroid - continue synthroid Chronic anemia, macrocytic - Hgb stable at 10. B12 normal on previous check and iron deficient. - continue home iron Gout - continue home allopurinol History of DM2 - continue home gabapentin. Not on any medication for this. - Last A1x 6.2 in 09/2017 History of atrial fibrillation - paced, continue home warfarin, amiodarone - INR 2.7 History of KS - continue home ASA History of GI bleed Diet: HH/fluid restrict, NPO @ [place] Code: DNR Ppx: home warfarin PCP: Tim Technical Research Scientist: Kenia Dispo: admit to telemetry inpatient for ACS rule out and diuresis Case discussed with Dr. Guerrero. FMR H&P: Upper Level - Plan Date/Time: 07/17/18 1430 IVíctor, have evaluated this patient and agree with findings/plan as outlined by actuarial internship resident. Pertinent changes/additions are listed here. HPI Pt is an 82 y/o F with Severe CHF presenting with chest pain. Sent from CHF clinic for this pain. Described as pleuritic and in the ribs. Now resolved. In ED given Lasix 40mgIV. PHYSICAL EXAMINATION: General: ill appearingNAD, alert and oriented x3 HEENT: PERRLA, EOMI, normal sclera, oropharynx without erythema or exudate Neck: Supple. Full ROM. Heart/Cardiovascular System: No r/m/g. RRR. Diffuse pitting edema up to her hip. 2+ Lungs/Respiratory System: clear to auscultation bilaterally. No increased work of breathing. Abdomen/Gastro-Intestinal System: non-tender, normal bowel sounds, no masses, no organomegaly PROBLEM LISTANDPLAN: # Acute On Chronic HFrEF Exacerbation- BNP elevated and is volume overloaded including anasarca to hip. Will continue diuresis with IV Lasix and monitoring output. Fluid restriction. # Atypical Chest Pain- Will trend Troponins and initial was mildly elevated. No ST elevations on EKG and now has resolved. Will trend troponins and continue to monitor. Also will elt her cardiologoist know in AM (Dr Aquino) she is here. # CKD4- At or near baseline. Continue to monitor daily and renally dose medications. # HTN- Continue current medications and continue to monitor. # Hx/o KS and CVA- Continue home medications. # Hx/o Atrial Fibrillation- Currently rate controlled and therapeutic on Warfarin. Continue home medication as VSS. #Chronic Macrocytic Anemia- At Baseline H/H, continue to monitor
[2018-07-17 16:08] LABS: Troponin I 0.037 ng/mL (< 0.028)
[2018-07-17] MEDS ORDERED: Ondansetron PF 4 MG/2 ML Vial IVP PRN ×2 (16:20→16:29)
[2018-07-17] MEDS ORDERED: Ondansetron ODT 4 MG TAB SL PRN (16:20)
[2018-07-17] MEDS ORDERED: Acetaminophen 325 MG TAB PO PRN (16:20)
[2018-07-17] MEDS ORDERED: Ondansetron ODT 4 MG TAB PO PRN (16:29)
[2018-07-17] MEDS ORDERED: Senokot S 8.6-50 MG TAB PO PRN (16:29)
[2018-07-17 19:14] LABS: Troponin I 0.041 ng/mL (< 0.028)
[2018-07-17] MEDS: traMADol HCl 50 MG TAB PO PRN (20:15)
[2018-07-17] MEDS: Pravastatin Sodium 20 MG TAB PO SCH (20:15)
[2018-07-17] MEDS: Gabapentin 100 MG CAP PO SCH (20:16)
[2018-07-17] MEDS: Sacubitril 49 MG/Valsartan 51 MG TABLET PO SCH (20:16)
[2018-07-17] MEDS: Nystatin Powder 15 GM BOT TOP SCH (20:17)
[2018-07-17] MEDS: Nitroglycerin 0.4 MG TAB (25 Tab Bottle) SL PRN ×2 (21:00→21:09)
[2018-07-17 23:15] LABS: Hemoglobin 10.4 g/dL (12.0-16.0); Platelet Count 137 thou/uL (130-400)
[2018-07-17 23:22] LABS: INR-International Normal Ratio 2.6; PTT 45.9 SEC (22.9-36.1); Prothrombin Time 28.2 SEC (12.0-14.7)
[2018-07-18 00:01] LABS: CKMB 0.5 ng/mL (0-6.6)
[2018-07-18] MEDS: Levothyroxine Sodium 100 MCG TAB PO SCH (05:17)
[2018-07-18] MEDS: traMADol HCl 50 MG TAB PO PRN ×2 (05:18→19:40)
[2018-07-18] MEDS: Furosemide 40 MG/4 ML VIAL SLOW IVP SCH ×2 (05:18→13:50)
[2018-07-18 06:41] LABS: #Eosinphils 0.1 thou/uL (0.0-0.7); #Lymphocytes 0.7 thou/uL (1.20-3.40); #Monocytes 0.7 thou/uL (0.11-0.59); #Neutrophils 7.2 thou/uL (1.40-6.50); %Eosinophils 0.7 % (0.0-10.0); %Lymphocytes 7.7 % (21.0-51.0); %Monocytes 7.8 % (0.0-10.0); %Neutrophils 83.8 % (42.0-75.0); Hemoglobin 9.9 g/dL (12.0-16.0); Mean Corpuscular HGB CONC 30.4 g/dL (32.0-36.0); Mean Corpuscular Hemoglobin 30.7 pg (27.0-31.0); Mean Platelet Volume 9.4 fL (7.4-10.4); Platelet Count 140 thou/uL (130-400); RBC Distribution Width 16.2 % (11.5-14.5); Red Blood Cell (RBC) Count 3.23 mill/uL (4.20-5.40); White Blood Cell (WBC) Count 8.6 thou/uL (4.8-10.8)
--- NOTE | 2018-07-18 06:53 | PDOC.FM ---
- Subjective Subjective: Ms Paige denies any chest pain, SOB. LE swelling has improved some. Has had some various MSK aches overnight but now all has improved. - Objective MAR Reviewed: Yes Vital Signs & Weight: Vital Signs (12 hours) Temp Pulse Resp BP Pulse Ox 07/18/18 03:30 97.4 F L 93 20 134/77 94 L 07/17/18 23:40 97.3 F L 82 20 129/59 L 95 07/17/18 20:11 92 L 07/17/18 19:46 97.5 F L 78 18 147/63 H 92 L Weight Weight 109.633 kg I&O: 07/16/18 07/17/18 07/18/18 06:59 06:59 06:59 Intake Total 560 Output Total 600 Balance -40 Result Diagrams: 07/18/18 06:22 07/18/18 06:22 Phys Exam - Physical Examination Constitutional: NAD Respiratory: no wheezing, no rhonchi, clear to auscultation bilateral Cardiovascular: RRR, no significant murmur Gastrointestinal: soft, non-tender, positive bowel sounds Musculoskeletal: edema present Psychiatric: normal affect Dx/Plan (1) Atypical chest pain Code(s): R07.89 - OTHER CHEST PAIN Status: Acute (2) Acute on chronic systolic CHF (congestive heart failure) Code(s): I50.23 - ACUTE ON CHRONIC SYSTOLIC (CONGESTIVE) HEART FAILURE Status : Acute (3) Afib Code(s): I48.91 - UNSPECIFIED ATRIAL FIBRILLATION Status: Chronic (4) Anemia, macrocytic Code(s): D53.9 - NUTRITIONAL ANEMIA, UNSPECIFIED Status: Chronic (5) CKD (chronic kidney disease) stage 4, GFR 15-29 ml/min Code(s): N18.4 - CHRONIC KIDNEY DISEASE, STAGE 4 (SEVERE) Status: Chronic (6) DM II (diabetes mellitus, type II), controlled Code(s): E11.9 - TYPE 2 DIABETES MELLITUS WITHOUT COMPLICATIONS Status: Chronic (7) HFrEF (heart failure with reduced ejection fraction) Code(s): I50.20 - UNSPECIFIED SYSTOLIC (CONGESTIVE) HEART FAILURE Status: Chronic (8) Hypertension Code(s): I10 - ESSENTIAL (PRIMARY) HYPERTENSION Status: Chronic (9) Hypothyroidism Code(s): E03.9 - HYPOTHYROIDISM, UNSPECIFIED Status: Chronic (10) Ischemic cardiomyopathy Code(s): I25.5 - ISCHEMIC CARDIOMYOPATHY Status: Chronic (11) Morbid obesity with BMI of 40.0-44.9, adult Code(s): E66.01 - MORBID (SEVERE) OBESITY DUE TO EXCESS CALORIES; Z68.41 - BODY MASS INDEX (BMI) 40.0-44.9, ADULT Status: Chronic (12) Gout Code(s): M10.9 - GOUT, UNSPECIFIED Status: Chronic - Plan Plan: 82 yo F with PMH HFrEF, HTN, CAD, [place] is admitted for chest pain work up and CHF exacerbation. HFrEF exacerbation - last echo 09/2017 with EF 20-25%, diastolic dysfunction - BNP 2900 with anasarca up to hips. On home O2 of 2L. - s/p 40 mg IV lasix in ED - continue IV diuresis, monitor I/Os - let Dr. Aquino office know patient is here in hospital. Will not officially consult unless Dr. Aquino would like to see pt. Atypical chest pain, now resolved - Heart score 5 - trop neg - EKG was ventricular paced CKD3/4 - will monitor Cr on am labs considering diuresis HFrEF s/p AICD - consult heart failure team - continue home entresto. Hold home BB for now. HLD - continue statin Hypothyroid - continue synthroid Chronic anemia, macrocytic - Hgb stable at 10. B12 normal on previous check and iron deficient. - continue home iron Gout - continue home allopurinol History of DM2 - continue home gabapentin. Not on any medication for this. - Last A1c 6.2 in 09/2017 History of atrial fibrillation - paced, continue home warfarin, amiodarone - INR 2.7 History of NM - continue home ASA History of GI bleed Diet: HH/fluid restrict Code: DNR Ppx: home warfarin PCP: Tim Chronometer Adjuster: Kenia Addendum - Attending - Attending Attestation Date/Time: 07/18/18 3847 I personally evaluated the patient and discussed the management with Dr. Graf I agree with the History, Examination, Assessment and Plan documented above with any addition or exceptions noted below. Patient with endorsing fluid restriction non-compliance continue bedrest with diuresis.
[2018-07-18 06:58] LABS: Anion Gap 13 mmol/L (10-20); BUN (Urea Nitrogen) 49 mg/dL (9.8-20.1); Calc. Creatinine Clearance 52 mL/min (70-130); Calcium 9.5 mg/dL (7.8-10.44); Carbon Dioxide 26 mmol/L (23-31); Chloride 105 mmol/L (98-107); Estimated GFR-MDRD 34; Glucose 125 mg/dL (83-110); Potassium 3.9 mmol/L (3.5-5.1); Sodium 140 mmol/L (136-145)
[2018-07-18] MEDS: Amiodarone 200 MG TAB PO SCH (08:10)
[2018-07-18] MEDS: Allopurinol 100 MG TAB PO SCH (08:10)
[2018-07-18] MEDS: Ascorbic Acid 500 mg Chewable Tablet PO SCH (08:11)
[2018-07-18] MEDS: Docusate 100 MG CAP PO SCH (08:12)
[2018-07-18] MEDS: Aspirin Chewable 81 MG TAB PO SCH (08:12)
[2018-07-18] MEDS: Pantoprazole 40 MG GRANULES PACKET PO SCH (08:13)
[2018-07-18] MEDS: Gabapentin 100 MG CAP PO SCH ×2 (08:13→19:40)
[2018-07-18] MEDS: Nystatin Powder 15 GM BOT TOP SCH ×2 (08:15→19:42)
[2018-07-18] MEDS: Sacubitril 49 MG/Valsartan 51 MG TABLET PO SCH ×2 (08:15→19:41)
--- NOTE | 2018-07-18 12:14 | CON ---
DATE OF CONSULTATION: 07/18/2018 INDICATION FOR CONSULTATION: An 82-year-old female with a long history of congestive heart failure. She was admitted yesterday after complaining of some chest pain. She recently was seen in the Heart Failure Clinic and had been noticed that she had some increase in her OptiVol with elevation showing evidence of congestive heart failure. She does have a history of diastolic dysfunction with systolic dysfunction, history of myocardial infarction in the past. She has an AICD implant. She has history of diabetes and hypertension. At this time, she describes the pain as being somewhat atypical, it was a sudden onset radiating to the left arm down to the left shoulder and left leg, down to the right hip. She describes as being a pleurisy. She did have increased pain with movement. Even today when she was asked to sit up in the chair slightly loosen posteriorly. She complained of increased pain with sudden onset in the anterior chest area. This appears to be musculoskeletal or pleuritic in nature rather than cardiac. Otherwise, she is relatively asymptomatic. She had volume overload and has now had some diuresis. She will need further diuresis. Her legs with lower extremity edema, which she has had in the past. She has not had a very good diuresis since being here, but she says her legs are smaller than when she came in. However, she will need further diuresis. Her cardiac enzymes were indeterminate with a troponin I of 0.037 increased up to 0.042. She does have chronic renal insufficiency and her creatinine is 1.46 with a BUN of 49. Blood sugars is 125. The AICD was interrogated this morning. There is no indication she has had any arrhythmia. She was 96% or 97% at the time she has ventricular pacing with atrial sensing. There is no indication she has had any significant arrhythmias and no atrial fibrillation has been noted. PAST MEDICAL HISTORY: Significant for coronary artery disease, myocardial infarction, cardiomyopathy, congestive heart failure, and AICD implant. She has a history of diabetes. She has had a tubal ligation bilaterally. She has had cholecystectomy and tonsillectomy. She has non-insulin dependent diabetes. She has had mild peripheral vascular disease noted in the past. She has had a left carotid endarterectomy. She has an AICD implant. MEDICATIONS: Prior to admission included; 1. Levothyroxine. 2. Gabapentin. 3. Amiodarone, which is 200 mg once a day. 4. Tramadol 50 mg q.8 hours. 5. Aspirin 81 mg a day. 6. Coumadin as needed to keep an INR between 2 and 3. 7. Coreg is 3.125 mg b.i.d. 8. Furosemide is 40 mg a day. 9. Pravastatin 20 mg a day. 10. Pantoprazole 40 mg tablet daily. SOCIAL HISTORY: She has no alcohol or tobacco abuse. FAMILY HISTORY: Noncontributory. ALLERGIES: SHE HAS NO KNOWN DRUG ALLERGIES. REVIEW OF SYSTEMS: Mainly, she complains of the discomfort with aches and pains and says she hurts all over at times. She has had some lower extremity edema recently, which is not new, but has been better in the past, that has improved, but she has had edema previously. She is pretty immobile. She is able to ambulate, but does not do much exertion. She had no new HEENT complaints or pulmonary complaints of shortness of breath. She had no GI or complaints. Musculoskeletal, she complains of multiple aches and pains. PHYSICAL EXAMINATION: GENERAL: Reveals an elderly female. She is in no acute distress at this time. She is alert. She is oriented. She is very pleasant. VITAL SIGNS: Her blood pressure is 124/58, heart rate is 80 to 90 and shows almost 100% pacing in the ventricle with atrial sensing and ventricular pacing. She is afebrile. Respiratory rate is about 16. HEENT: Shows the head to be normocephalic and atraumatic. Carotid pulses are present. I did not hear any significant bruits. She has a well-healed surgical incision over the left carotid area after a carotid endarterectomy. CHEST: She has noted on the left side rales, which are more so than the right side. Those rales on the left side appeared to be at least assisted up the chest area. CARDIOVASCULAR: Reveals a regular rhythm at this time. I do not hear any gross murmurs. She has an S1 and S2 noted. ABDOMEN: Shows obesity with positive bowel sounds. No organomegaly or masses are noted. EXTREMITIES: Showed 1 to 2+ lower extremity edema with some mild erythema. Pedal pulses are difficult to palpate. NEUROLOGIC: The patient appears to be fully intact. SKIN: Warm and dry. IMPRESSION AND PLAN: 1. Congestive heart failure exacerbation with acute on chronic, both systolic and diastolic. We will need to continue her diuresis. She will need to be more compliant with her fluid intake. Her last echocardiogram shows severe decrease in left ventricular function. Ejection fraction is about 20% to 25% as I recall. Other than medical management, there is very little more that we can offer her from my cardiac standpoint. She is already on Entresto as well as beta-blockers, amiodarone, and furosemide. Uncertain if she would benefit from further changes in the medications. We will continue to follow her and we will continue the diuresis. 2. History of diabetes. This will be dealt by the Primary Care Service. 3. Hypertension. It is under very good control with the present management. 4. History of automatic implantable cardioverter-defibrillator implant. The device was interrogated this morning. She has normal function. She still has about 2 years left on the device prior to the elective replacement interval. She will be continued to be followed by the Heart Failure Clinic. 5. History of coronary artery disease. She is status post anterior myocardial infarction in the past, which caused her severe decrease in left ventricular systolic function. She also has a history of peripheral vascular disease. This appears to be stable at this time. We will continue to monitor her carotid arteries. Overall, if she remains stable on diuresis, she should be able to be discharged in the next 1 to 2 days. Job ID: [id number]
--- NOTE | 2018-07-18 16:48 | EKG ---
Test Reason : Blood Pressure : / mmHG Vent. Rate : 090 BPM Atrial Rate : 090 BPM P-R Int : 164 ms QRS Dur : 130 ms QT Int : 410 ms P-R-T Axes : 051 243 060 degrees QTc Int : 501 ms Atrial-sensed ventricular-paced rhythm Biventricular pacemaker detected Abnormal ECG When compared with ECG of 15-MAY-2018 14:45, Premature ventricular complexes are no longer Present Vent. rate has increased BY [address] Meka AVENDANO (3) on 07/18/2018 4:47:56 PM Referred By: Confirmed By:DR. Meka AVENDANO
--- NOTE | 2018-07-18 16:49 | EKG ---
Test Reason : Blood Pressure : / mmHG Vent. Rate : 091 BPM Atrial Rate : 091 BPM P-R Int : 142 ms QRS Dur : 164 ms QT Int : 446 ms P-R-T Axes : 062 -63 067 degrees QTc Int : 548 ms Biventricular pacemaker detected Abnormal ECG When compared with ECG of 17-JUL-2018 20:23, (Unconfirmed) Abberant conduction is now Present Confirmed by DR. Meka AVENDANO (3) on 07/18/2018 4:49:27 PM Referred By: JEFFREY ewing Confirmed By:DR. Meka AVENDANO
[2018-07-18] MEDS ORDERED: Warfarin Sodium 3 MG TAB PO SCH (17:00)
[2018-07-18] MEDS ORDERED: Warfarin Sodium 1 MG TAB PO SCH ×2 (17:00)
[2018-07-18] MEDS: Pravastatin Sodium 20 MG TAB PO SCH (19:40)
[2018-07-18] MEDS: Acetaminophen 325 MG TAB PO PRN (19:41)
[2018-07-18] MEDS: Carvedilol 6.25 MG TAB PO SCH (19:41)
[2018-07-18 23:06] LABS: INR-International Normal Ratio 1.9; Prothrombin Time 21.9 SEC (12.0-14.7)
[2018-07-18 23:07] LABS: PTT 21.4 SEC (22.9-36.1)
[2018-07-19] MEDS: Furosemide 40 MG/4 ML VIAL SLOW IVP SCH ×2 (05:54→15:04)
[2018-07-19] MEDS: Levothyroxine Sodium 100 MCG TAB PO SCH (05:54)
--- NOTE | 2018-07-19 06:20 | PDOC.FM ---
- Subjective Subjective: Ms. Paige is feeling even better today. She notes decreased swelling in her knees. No SOB. - Objective Vital Signs & Weight: Vital Signs (12 hours) Temp Pulse Resp BP BP Pulse Ox 07/19/18 04:15 97.2 F L 85 20 106/55 L 93 L 07/18/18 20:08 97 07/18/18 20:00 97.5 F L 86 20 146/80 H 97 07/18/18 19:41 146/80 H Weight Weight 109.679 kg I&O: 07/17/18 07/18/18 07/19/18 06:59 06:59 06:59 Intake Total 560 1750 Output Total 600 Balance -40 1750 Result Diagrams: 07/19/18 06:24 07/19/18 06:24 Phys Exam - Physical Examination Constitutional: NAD Respiratory: no wheezing, no rhonchi, clear to auscultation bilateral Cardiovascular: RRR, no significant murmur Gastrointestinal: soft, non-tender, positive bowel sounds Musculoskeletal: edema present (pitting edema up to knees appreciated) Neurological: non-focal Psychiatric: normal affect Skin: normal turgor Dx/Plan (1) Atypical chest pain Code(s): R07.89 - OTHER CHEST PAIN Status: Acute (2) Acute on chronic systolic CHF (congestive heart failure) Code(s): I50.23 - ACUTE ON CHRONIC SYSTOLIC (CONGESTIVE) HEART FAILURE Status : Acute (3) Afib Code(s): I48.91 - UNSPECIFIED ATRIAL FIBRILLATION Status: Chronic (4) Anemia, macrocytic Code(s): D53.9 - NUTRITIONAL ANEMIA, UNSPECIFIED Status: Chronic (5) CKD (chronic kidney disease) stage 4, GFR 15-29 ml/min Code(s): N18.4 - CHRONIC KIDNEY DISEASE, STAGE 4 (SEVERE) Status: Chronic (6) DM II (diabetes mellitus, type II), controlled Code(s): E11.9 - TYPE 2 DIABETES MELLITUS WITHOUT COMPLICATIONS Status: Chronic (7) HFrEF (heart failure with reduced ejection fraction) Code(s): I50.20 - UNSPECIFIED SYSTOLIC (CONGESTIVE) HEART FAILURE Status: Chronic (8) Hypertension Code(s): I10 - ESSENTIAL (PRIMARY) HYPERTENSION Status: Chronic (9) Hypothyroidism Code(s): E03.9 - HYPOTHYROIDISM, UNSPECIFIED Status: Chronic (10) Ischemic cardiomyopathy Code(s): I25.5 - ISCHEMIC CARDIOMYOPATHY Status: Chronic (11) Morbid obesity with BMI of 40.0-44.9, adult Code(s): E66.01 - MORBID (SEVERE) OBESITY DUE TO EXCESS CALORIES; Z68.41 - BODY MASS INDEX (BMI) 40.0-44.9, ADULT Status: Chronic (12) Gout Code(s): M10.9 - GOUT, UNSPECIFIED Status: Chronic - Plan Plan: 82 yo F with PMH HFrEF, HTN, CAD, [place] is admitted for chest pain work up and CHF exacerbation. HFrEF exacerbation - last echo 09/2017 with EF 20-25%, diastolic dysfunction - BNP 2900 with initial edema up to hips. On home O2 of 2L. - s/p 40 mg IV lasix in ED - continue IV diuresis, monitor I/Os - Dr. Aquino consulted Atypical chest pain, now resolved - Heart score 5 - trop neg - EKG was ventricular paced CKD3/4 - will monitor Cr on am labs considering diuresis, stable HFrEF s/p AICD - consult heart failure team - continue home entresto, BB HLD - continue statin Hypothyroid - continue synthroid Chronic anemia, macrocytic - Hgb stable at 10. B12 normal on previous check and iron deficient. - continue home iron Gout - continue home allopurinol History of DM2 - continue home gabapentin. Not on any medication for this. - Last A1c 6.2 in 09/2017 History of atrial fibrillation - paced, continue home warfarin, amiodarone - INR 2.7 History of [place] - continue home ASA History of GI bleed Diet: HH/fluid restrict Code: DNR Ppx: home warfarin PCP: Tim Blocking Machine Operator: Kenia Dispo: continue diuresis Addendum - Attending - Attending Attestation Date/Time: 07/19/18 9729 I personally evaluated the patient and discussed the management with Dr. Graf I agree with the History, Examination, Assessment and Plan documented above with any addition or exceptions noted below. Would consider metolazone for enhanced short term diuresis. Patient subjectively improved however still appears significantly fluid overloaded. Will need to better track I&O's.
[2018-07-19 07:33] LABS: Anion Gap 12 mmol/L (10-20); BUN (Urea Nitrogen) 52 mg/dL (9.8-20.1); Calc. Creatinine Clearance 52 mL/min (70-130); Calcium 9.3 mg/dL (7.8-10.44); Carbon Dioxide 26 mmol/L (23-31); Chloride 103 mmol/L (98-107); Estimated GFR-MDRD 34; Glucose 103 mg/dL (83-110); Potassium 3.8 mmol/L (3.5-5.1); Sodium 137 mmol/L (136-145)
[2018-07-19 07:49] LABS: #Eosinphils 0.2 thou/uL (0.0-0.7); #Lymphocytes 1.1 thou/uL (1.20-3.40); #Monocytes 0.8 thou/uL (0.11-0.59); #Neutrophils 5.4 thou/uL (1.40-6.50); %Basophils 0.4 % (0.0-1.0); %Eosinophils 2.4 % (0.0-10.0); %Lymphocytes 14.7 % (21.0-51.0); %Monocytes 10.6 % (0.0-10.0); Hemoglobin 9.3 g/dL (12.0-16.0); MDiff Complete? YES; Mean Corpuscular HGB CONC 31.5 g/dL (32.0-36.0); Mean Corpuscular Hemoglobin 31.7 pg (27.0-31.0); Mean Platelet Volume 9.4 fL (7.4-10.4); Platelet Count 127 thou/uL (130-400); Platelet Morphology Comment Appears Decreased; Polychromasia SLIGHT = 2-3 cells (100X) (0-2/hpf); RBC Distribution Width 16.1 % (11.5-14.5); Red Blood Cell (RBC) Count 2.92 mill/uL (4.20-5.40); White Blood Cell (WBC) Count 7.5 thou/uL (4.8-10.8)
[2018-07-19] MEDS: Amiodarone 200 MG TAB PO SCH (09:14)
[2018-07-19] MEDS: Allopurinol 100 MG TAB PO SCH (09:14)
[2018-07-19] MEDS: Ascorbic Acid 500 mg Chewable Tablet PO SCH (09:14)
[2018-07-19] MEDS: Aspirin Chewable 81 MG TAB PO SCH (09:15)
[2018-07-19] MEDS: Carvedilol 3.125 MG TAB PO SCH (09:15)
[2018-07-19] MEDS: Docusate 100 MG CAP PO SCH (09:15)
[2018-07-19] MEDS: Pantoprazole 40 MG GRANULES PACKET PO SCH (09:16)
[2018-07-19] MEDS: Nystatin Powder 15 GM BOT TOP SCH ×2 (09:16→20:40)
[2018-07-19] MEDS: Sacubitril 49 MG/Valsartan 51 MG TABLET PO SCH ×2 (09:16→20:38)
[2018-07-19] MEDS: Gabapentin 100 MG CAP PO SCH ×2 (09:16→20:38)
--- NOTE | 2018-07-19 11:37 | PDOC.CTH ---
Cardiology Progress Note - Subjective The pt seen and examined. No overnight events. No cardiac complaints. - Objective Vital Signs Temp Pulse Resp BP Pulse Ox 07/19/18 07:59 97.5 F L 77 19 110/57 L 92 L 07/19/18 04:15 97.2 F L 85 20 106/55 L 93 L Weight 241 lb 12.8 oz 07/18/18 07/19/18 07/20/18 06:59 06:59 06:59 Intake Total 560 1750 Output Total 600 Balance -40 1750 - Physical Examination General/Neuro: alert & oriented x3 Neck: no JVD present Lungs: CTA (diminished at bases) Heart: RRR Abdomen: soft Extremities: other: (BLE edema) - Telemetry Telemetry Rhythm: AV paced - Labs Result Diagrams: 07/19/18 06:24 07/19/18 06:24 Troponin/CKMB CK-MB (CK-2) 0.5 ng/mL (0-6.6) 07/17/18 23:10 Troponin I 0.042 ng/mL (< 0.028) H 07/17/18 23:10 - Assessment/Plan 1. Acute on chronic systolic HF - improving with Lasix 40mg IV BID; On bblocker due to hx of CAD. on Entresto for CMY/CHF. The BNP will be elevated with Entresto. 2. Ischemic CMY with hx of AICD - AICD interrogation showed normal function; 3. Parox Afib - The pt requests to change her OAC from Coumadin to Eliquis, which will start this PM 4. CAD with hx of [place] - stable; cont. to monitor on tele; On bblocker, ASA 81mg qd, and Statin, 5. HTN - stable 6. CKD - unchanged. Continue to monitor with the Entresto which contains an ARB. 7. DM type 2 - managed by PCP 8. Hypothyrodism - managed by PCP MAR reviewed Pt. seen and eval. by me. I agree with the A/P by the CINDER CRANE OPERATOR. Chest : decreased bases , no wheeze or rales. RRR. Pacing. continue diuretics, Review of Systems - Review of Systems Constitutional: reports: no symptoms reported EENTM: reports: no symptoms reported Respiratory: reports: no symptoms reported Cardiac (ROS): reports: no symptoms reported ABD/GI: reports: no symptoms reported : reports: no symptoms reported
--- NOTE | 2018-07-19 12:53 | PQF ---
JEET BELTRANWinifredr [id number] [facility]-288 [id number] CLINICAL DOCUMENTATION IMPROVEMENT CLARIFICATION FORM: ICD-10 Updated PLEASE DO AN ADDENDUM TO THE PROGRESS NOTE WITH ANY DOCUMENTATION UPDATES OR ADDITIONS AND CARRY THROUGH TO DC SUMMARY. THANK YOU. DATE: 07/19/18 ATTN:DR. Jagjit BOTELLO Please exercise your independent, professional judgment in responding to the clarification form. Clinical indicators are provided on the bottom of this form for your review. Please check appropriate box(s): [ ] NSTEMI ([place] type I) [ ] NSTEMI due to Demand Ischemia (AMI Type II) [ ] Demand Ischemia without [place] [ ] Other diagnosis [ ] Unable to determine In addition, please specify: Present on Admission (POA): [ ] Yes [ ] No [ ] Unable to determine CLINICAL INDICATORS - SIGNS / SYMPTOMS / LABS 07/17 PT PRESENTS TO ED FROM [facility]F CLINIC FOR CHEST PAIN AND SOB 07/17 ED PHYSICIAN DX: SHORTNESS OF BREATH, CHEST PAIN, CHF EXACERBATION 07/17 TROPONIN I 0.043 0.037 0.041 0.042 07/18 CONSULT: () HER CARDIAC ENZYMES WERE INDETERMINATE WITH A TROPONIN I OF 0.037 INCREASED UP TO 0.042. RISK: HX OF [place] ( CONSULT/) ADVANCED AGE ( 82) HX OF CAD ( H & P) FORMER TOBACCO ABUSE TREATMENTS CARDIOLOGY CONSULT SERIAL CARDIAC ENZYMES THANK YOU! FANNY (This form is maintained as a part of the permanent medical record) 2014 [employer]. All Rights Reserved [email or web address] [phone] MTDD
--- NOTE | 2018-07-19 13:13 | PQF ---
JEET BELTRANWinifredr [id number] [facility]-288 [id number] CLINICAL DOCUMENTATION IMPROVEMENT CLARIFICATION FORM: ICD-10 Updated PLEASE DO AN ADDENDUM TO THE PROGRESS NOTE WITH ANY DOCUMENTATION UPDATES OR ADDITIONS AND CARRY THROUGH TO DC SUMMARY. THANK YOU. DATE: 07/19/18 ATTN:DR. Jagjit BOTELLO Please exercise your independent, professional judgment in responding to the clarification form. Clinical indicators are provided on the bottom of this form for your review. Please check appropriate box(s): [ ] Acute Respiratory Failure: [ ] with Hypoxia [ ] with Hypercapnia [ ] Acute On Chronic Respiratory Failure: [ ] with Hypoxia [ ] with Hypercapnia [ x ] Chronic Respiratory Failure only [ ] with Hypoxia [ ] with Hypercapnia [ ] Other diagnosis [ ] Unable to determine In addition, please specify: Present on Admission (POA): [ x ] Yes [ ] No [ ] Unable to determine For continuity of documentation, please document condition throughout progress notes and discharge summary. Thank You. CLINICAL INDICATORS - SIGNS / SYMPTOMS / LABS 07/17 ED, PT SENT FROM CHF CLINIC : PT REQUIRING O2 AT 3L/NC TO MAINTAIN SATURATIONS AT 97-99% PT REPORTS WEARS 3L O2 DAILY. 76% ON RA, IMMEDIATELY REBOUNDED TO 97% ON 3L O2. NO DISTRESS ON ARRIVAL 07/17 ED PHYSICIAN DX: SHORTNESS OF BREATH, CHF EXACERBATION, CHEST PAIN RISK: HX ASTHMA(H & P) WEARS HOME O2 (ED REPORT) FORMER TOBACCO ABUSE (H & P) TREATMENTS SUPPLEMENTAL O2 (07/17 - PRESENT) CONTINUOUS O2 SATURATION MONITORING THANK YOU! FANNY (This form is maintained as a part of the permanent medical record) 2014 [employer], [employer]. All Rights Reserved [email or web address] [phone] MTDD
--- NOTE | 2018-07-19 13:23 | PQF ---
JEET BELTRANWinifredr [id number] [facility]-288 [id number] CLINICAL DOCUMENTATION IMPROVEMENT CLARIFICATION FORM: ICD-10 Updated PLEASE DO AN ADDENDUM TO THE PROGRESS NOTE WITH ANY DOCUMENTATION UPDATES OR ADDITIONS AND CARRY THROUGH TO DC SUMMARY. THANK YOU. DATE: 07/19/18 ATTN:DR. Jagjit BOTELLO Please exercise your independent, professional judgment in responding to the clarification form. Clinical indicators are provided on the bottom of this form for your review. Please check appropriate box(s): [ ] NSTEMI ([place] type I) [ ] NSTEMI due to Demand Ischemia (AMI Type II) [ x ] Demand Ischemia without [place] [ ] Other diagnosis [ ] Unable to determine In addition, please specify: Present on Admission (POA): [ ] Yes [ ] No [ ] Unable to determine CLINICAL INDICATORS - SIGNS / SYMPTOMS / LABS 07/17 PT PRESENTS TO ED FROM CHF CLINIC FOR CHEST PAIN AND SOB 07/17 ED PHYSICIAN DX: SHORTNESS OF BREATH, CHEST PAIN, CHF EXACERBATION 07/17 TROPONIN I 0.043 0.037 0.041 0.042 07/18 CONSULT: () HER CARDIAC ENZYMES WERE INDETERMINATE WITH A TROPONIN I OF 0.037 INCREASED UP TO 0.042. RISK: HX OF [place] ( CONSULT/) ADVANCED AGE ( 82) HX OF CAD ( H & P) FORMER TOBACCO ABUSE TREATMENTS CARDIOLOGY CONSULT SERIAL CARDIAC ENZYMES THANK YOU! FANNY (This form is maintained as a part of the permanent medical record) 2014 [employer], [employer]. All Rights Reserved [email or web address] [phone] MTDD
[2018-07-19] MEDS ORDERED: Furosemide 40 MG/4 ML VIAL ONE (13:32)
[2018-07-19] MEDS ORDERED: Metolazone 5 MG TAB PO SCH (14:00)
[2018-07-19] MEDS: Pravastatin Sodium 20 MG TAB PO SCH (20:38)
[2018-07-19] MEDS: Apixaban 2.5 MG TAB PO SCH (20:39)
[2018-07-19] MEDS: Acetaminophen 325 MG TAB PO PRN (20:39)
[2018-07-19] MEDS: Carvedilol 6.25 MG TAB PO SCH (20:39)
[2018-07-19] MEDS: traMADol HCl 50 MG TAB PO PRN (20:39)
[2018-07-19 23:15] LABS: Hemoglobin 9.1 g/dL (12.0-16.0); Platelet Count 132 thou/uL (130-400)
[2018-07-20] MEDS: Furosemide 40 MG/4 ML VIAL SLOW IVP SCH ×2 (05:32→13:57)
[2018-07-20] MEDS: Levothyroxine Sodium 100 MCG TAB PO SCH (05:32)
--- NOTE | 2018-07-20 06:45 | PDOC.FM ---
- Subjective Subjective: Ms. Paige reports feeling well overall this morning. Denies SOB, CP. Says LE edema has continued to improve some. Upset she has not received her coffee this morning. - Objective Vital Signs & Weight: Vital Signs (12 hours) Temp Pulse Resp BP BP Pulse Ox 07/20/18 04:01 97.2 F L 67 18 111/59 L 93 L 07/19/18 20:39 113/60 07/19/18 20:08 98 07/19/18 19:47 97.3 F L 71 16 113/60 98 Weight Weight 109.679 kg I&O: 07/18/18 07/19/18 07/20/18 06:59 06:59 06:59 Intake Total 560 1750 1460 Output Total 600 1000 Balance -40 1750 460 Result Diagrams: 07/19/18 23:03 07/20/18 07:29 Phys Exam - Physical Examination Constitutional: NAD Respiratory: clear to auscultation bilateral (diminshed lower lobes) Cardiovascular: RRR, no significant murmur Gastrointestinal: soft, non-tender, positive bowel sounds Musculoskeletal: edema present (b/l LE pitting edema) Neurological: non-focal Psychiatric: normal affect Skin: normal turgor Dx/Plan (1) Atypical chest pain Code(s): R07.89 - OTHER CHEST PAIN Status: Acute (2) Acute on chronic systolic CHF (congestive heart failure) Code(s): I50.23 - ACUTE ON CHRONIC SYSTOLIC (CONGESTIVE) HEART FAILURE Status : Acute (3) Afib Code(s): I48.91 - UNSPECIFIED ATRIAL FIBRILLATION Status: Chronic (4) Anemia, macrocytic Code(s): D53.9 - NUTRITIONAL ANEMIA, UNSPECIFIED Status: Chronic (5) CKD (chronic kidney disease) stage 4, GFR 15-29 ml/min Code(s): N18.4 - CHRONIC KIDNEY DISEASE, STAGE 4 (SEVERE) Status: Chronic (6) DM II (diabetes mellitus, type II), controlled Code(s): E11.9 - TYPE 2 DIABETES MELLITUS WITHOUT COMPLICATIONS Status: Chronic (7) HFrEF (heart failure with reduced ejection fraction) Code(s): I50.20 - UNSPECIFIED SYSTOLIC (CONGESTIVE) HEART FAILURE Status: Chronic (8) Hypertension Code(s): I10 - ESSENTIAL (PRIMARY) HYPERTENSION Status: Chronic (9) Hypothyroidism Code(s): E03.9 - HYPOTHYROIDISM, UNSPECIFIED Status: Chronic (10) Ischemic cardiomyopathy Code(s): I25.5 - ISCHEMIC CARDIOMYOPATHY Status: Chronic (11) Morbid obesity with BMI of 40.0-44.9, adult Code(s): E66.01 - MORBID (SEVERE) OBESITY DUE TO EXCESS CALORIES; Z68.41 - BODY MASS INDEX (BMI) 40.0-44.9, ADULT Status: Chronic (12) Gout Code(s): M10.9 - GOUT, UNSPECIFIED Status: Chronic - Plan Plan: 82 yo F with PMH HFrEF, HTN, CAD, [place] is admitted for chest pain work up and CHF exacerbation. HFrEF exacerbation - last echo 09/2017 with EF 20-25%, diastolic dysfunction - BNP 2900 with initial edema up to hips. On home O2 of 2L. - continue IV diuresis, monitor I/Os (some voids not measured as pt missed) - Dr. Aquino consulted, given one time dose metolazone, on lasix 40 IV BID Atypical chest pain, now resolved - Heart score 5 - trop neg - EKG was ventricular paced CKD3/4 - will monitor Cr on am labs considering diuresis, stable - Cr bumped to 1.6 HFrEF s/p AICD - consult heart failure team - continue home entresto, BB HLD - continue statin Hypothyroid - continue synthroid Chronic anemia, macrocytic - Hgb stable. B12 normal on previous check and iron deficient. - continue home iron Gout - continue home allopurinol History of DM2 - continue home gabapentin. Not on any medication for this. - Last A1c 6.2 in 09/2017 History of atrial fibrillation - paced, continue home amiodarone - Switched from warfarin to eliquis. History of [place] - continue home ASA History of GI bleed Diet: HH/fluid restrict Code: DNR Ppx: tracy PCP: Tim Instrument Maker: Kenia Dispo: continue diuresis, appreciate cardiology recs Addendum - Attending - Attending Attestation Date/Time: 07/20/18 8994 I personally evaluated the patient and discussed the management with I agree with the History, Examination, Assessment and Plan documented above with any addition or exceptions noted below.
[2018-07-20 08:36] LABS: Anion Gap 15 mmol/L (10-20); BUN (Urea Nitrogen) 55 mg/dL (9.8-20.1); Calc. Creatinine Clearance 47 mL/min (70-130); Calcium 9.3 mg/dL (7.8-10.44); Carbon Dioxide 26 mmol/L (23-31); Chloride 101 mmol/L (98-107); Estimated GFR-MDRD 31; Glucose 96 mg/dL (83-110); Sodium 138 mmol/L (136-145)
[2018-07-20] MEDS: Allopurinol 100 MG TAB PO SCH (09:21)
[2018-07-20] MEDS: Amiodarone 200 MG TAB PO SCH (09:21)
[2018-07-20] MEDS: Ascorbic Acid 500 mg Chewable Tablet PO SCH (09:22)
[2018-07-20] MEDS: Aspirin Chewable 81 MG TAB PO SCH (09:22)
[2018-07-20] MEDS: Apixaban 2.5 MG TAB PO SCH ×2 (09:22→20:33)
[2018-07-20] MEDS: Docusate 100 MG CAP PO SCH (09:23)
[2018-07-20] MEDS: Pantoprazole 40 MG GRANULES PACKET PO SCH (09:23)
[2018-07-20] MEDS: Carvedilol 3.125 MG TAB PO SCH (09:23)
[2018-07-20] MEDS: Sacubitril 49 MG/Valsartan 51 MG TABLET PO SCH ×2 (09:23→20:33)
[2018-07-20] MEDS: Gabapentin 100 MG CAP PO SCH ×2 (09:23→20:34)
[2018-07-20] MEDS: Nystatin Powder 15 GM BOT TOP SCH ×2 (09:28→20:35)
--- NOTE | 2018-07-20 15:56 | PDOC.CTH ---
Cardiology Progress Note - Subjective The pt seen and examined. No overnight events. No cardiac complaints. Her BLE edema has been improving with Lasix and AJAY wraps (Thank you 2N staff.) - Objective Vital Signs Temp Pulse Resp BP BP Pulse Ox 07/20/18 15:32 97.3 F L 70 17 107/56 L 98 07/20/18 12:01 97.7 F 71 17 110/59 L 95 07/20/18 07:30 97.5 F L 66 17 105/57 L 98 07/20/18 04:01 97.2 F L 67 18 111/59 L 93 L Weight 241 lb 12.8 oz 07/19/18 07/20/18 07/21/18 06:59 06:59 06:59 Intake Total 1750 1460 Output Total 1000 Balance 1750 460 - Physical Examination General/Neuro: alert & oriented x3 Neck: no JVD present Lungs: CTA Heart: RRR Abdomen: soft Extremities: other: (3-4+ pitting BLE edema;) - Telemetry Telemetry Rhythm: AV paced - Labs Result Diagrams: 07/19/18 23:03 07/20/18 07:29 Troponin/CKMB CK-MB (CK-2) 0.5 ng/mL (0-6.6) 07/17/18 23:10 Troponin I 0.042 ng/mL (< 0.028) H 07/17/18 23:10 - Assessment/Plan 1. Acute on chronic systolic HF - improving with Lasix 40mg IV BID; On bblocker due to hx of CAD. on Entresto for CMY/CHF. The BNP will be elevated with Entresto. 2. Ischemic CMY with hx of AICD - AICD interrogation showed normal function; 3. Parox Afib - On Bblocker and Eliquis. 4. CAD with hx of [place] - stable; cont. to monitor on tele; On bblocker, ASA 81mg qd, and Statin, 5. HTN - stable 6. CKD - unchanged. Continue to monitor with the Entresto which contains an ARB. 7. DM type 2 - managed by PCP 8. Hypothyrodism - managed by PCP MAR reviewed pt. seen and eval. by me. I agree with the A/P by the SECURITY SOLUTIONS ENGINEER.Ms. Paige says that she has urinated quite a lot but the I/O's do not reflect this. The lower extremity edema seems improved. She may need dobutamine if the diuresis is not sufficient with diuretics alone. Chest : bibasilar rales. RRR. 2-3+ edema of lower extremities to the upper thighs. Review of Systems - Review of Systems Constitutional: reports: no symptoms reported EENTM: reports: no symptoms reported Respiratory: reports: no symptoms reported Cardiac (ROS): reports: no symptoms reported ABD/GI: reports: no symptoms reported : reports: no symptoms reported Musculoskeletal: reports: no symptoms reported Skin: reports: no symptoms reported
[2018-07-20] MEDS: Pravastatin Sodium 20 MG TAB PO SCH (20:33)
[2018-07-20] MEDS: Carvedilol 6.25 MG TAB PO SCH (20:34)
[2018-07-21 05:32] LABS: Anion Gap 15 mmol/L (10-20); BUN (Urea Nitrogen) 55 mg/dL (9.8-20.1); Calc. Creatinine Clearance 50 mL/min (70-130); Calcium 9.4 mg/dL (7.8-10.44); Carbon Dioxide 29 mmol/L (23-31); Chloride 99 mmol/L (98-107); Estimated GFR-MDRD 32; Glucose 99 mg/dL (83-110); Potassium 3.6 mmol/L (3.5-5.1); Sodium 139 mmol/L (136-145)
[2018-07-21] MEDS: Furosemide 40 MG/4 ML VIAL SLOW IVP SCH ×2 (06:07→18:14)
[2018-07-21] MEDS: Levothyroxine Sodium 100 MCG TAB PO SCH (06:07)
--- NOTE | 2018-07-21 06:48 | PDOC.FM ---
- Subjective Subjective: Ms. Paige is awaiting breakfast this morning.Otherwise has no complaints.Says the AJAY wraps were too tight so she removed them. Says she feels the swelling is continuing to improve. Denies difficulty breathing. - Objective Vital Signs & Weight: Vital Signs (12 hours) Temp Pulse Resp BP BP Pulse Ox 07/21/18 03:48 97.4 F L 76 18 104/54 L 92 L 07/20/18 20:30 97.9 F 81 18 107/58 L 96 Weight Weight 109.679 kg I&O: 07/19/18 07/20/18 07/21/18 06:59 06:59 06:59 Intake Total 1750 1460 960 Output Total 1000 Balance 1750 460 960 Result Diagrams: 07/19/18 23:03 07/21/18 04:40 Phys Exam - Physical Examination Constitutional: NAD crackles in lower bases Cardiovascular: RRR, no significant murmur Gastrointestinal: soft, non-tender, positive bowel sounds pitting edema in thighs Neurological: non-focal Psychiatric: normal affect Skin: normal turgor Dx/Plan (1) Atypical chest pain Code(s): R07.89 - OTHER CHEST PAIN Status: Acute (2) Acute on chronic systolic CHF (congestive heart failure) Code(s): I50.23 - ACUTE ON CHRONIC SYSTOLIC (CONGESTIVE) HEART FAILURE Status : Acute (3) Afib Code(s): I48.91 - UNSPECIFIED ATRIAL FIBRILLATION Status: Chronic (4) Anemia, macrocytic Code(s): D53.9 - NUTRITIONAL ANEMIA, UNSPECIFIED Status: Chronic (5) CKD (chronic kidney disease) stage 4, GFR 15-29 ml/min Code(s): N18.4 - CHRONIC KIDNEY DISEASE, STAGE 4 (SEVERE) Status: Chronic (6) DM II (diabetes mellitus, type II), controlled Code(s): E11.9 - TYPE 2 DIABETES MELLITUS WITHOUT COMPLICATIONS Status: Chronic (7) HFrEF (heart failure with reduced ejection fraction) Code(s): I50.20 - UNSPECIFIED SYSTOLIC (CONGESTIVE) HEART FAILURE Status: Chronic (8) Hypertension Code(s): I10 - ESSENTIAL (PRIMARY) HYPERTENSION Status: Chronic (9) Hypothyroidism Code(s): E03.9 - HYPOTHYROIDISM, UNSPECIFIED Status: Chronic (10) Ischemic cardiomyopathy Code(s): I25.5 - ISCHEMIC CARDIOMYOPATHY Status: Chronic (11) Morbid obesity with BMI of 40.0-44.9, adult Code(s): E66.01 - MORBID (SEVERE) OBESITY DUE TO EXCESS CALORIES; Z68.41 - BODY MASS INDEX (BMI) 40.0-44.9, ADULT Status: Chronic (12) Gout Code(s): M10.9 - GOUT, UNSPECIFIED Status: Chronic - Plan Plan: 82 yo F with PMH HFrEF, HTN, CAD, [place] is admitted for chest pain work up and CHF exacerbation. HFrEF exacerbation - last echo 09/2017 with EF 20-25%, diastolic dysfunction - BNP 2900 with initial edema up to hips. On home O2 of 2L. - continue IV diuresis, monitor I/Os (some voids not measured as pt missed) - Dr. Aquino consulted, given one time dose metolazone, on lasix 40 IV BID Atypical chest pain, now resolved - Heart score 5 - trop neg - EKG was ventricular paced CKD3/4 - will monitor Cr on am labs considering diuresis, stable - Cr 1.60->1.5 HFrEF s/p AICD - consult heart failure team - continue home entresto, BB HLD - continue statin Hypothyroid - continue synthroid Chronic anemia, macrocytic - Hgb stable. B12 normal on previous check and iron deficient. - continue home iron Gout - continue home allopurinol History of DM2 - continue home gabapentin. Not on any medication for this. - Last A1c 6.2 in 09/2017 History of atrial fibrillation - paced, continue home amiodarone - Switched from warfarin to eliquis. History of CT - continue home ASA History of GI bleed Diet: HH/fluid restrict Code: DNR Ppx: susyquis PCP: Tim Sporting Goods Sales Manager: Kenia Dispo: continue diuresis, appreciate cardiology recs. Could likely be ready for discharge soon. Addendum - Attending - Attending Attestation Date/Time: 07/21/18 6934 I personally evaluated the patient and discussed the management with Dr. Graf I agree with the History, Examination, Assessment and Plan documented above with any addition or exceptions noted below. Patient subjectively improved still not recording good I&Os . Lower extremity edema is improved. Continue IV diuresis.
[2018-07-21] MEDS: Acetaminophen 325 MG TAB PO PRN (09:20)
[2018-07-21] MEDS: Sacubitril 49 MG/Valsartan 51 MG TABLET PO SCH ×2 (10:59→21:20)
[2018-07-21] MEDS: Pantoprazole 40 MG GRANULES PACKET PO SCH (11:00)
[2018-07-21] MEDS: Carvedilol 3.125 MG TAB PO SCH (11:02)
[2018-07-21] MEDS: Docusate 100 MG CAP PO SCH (11:02)
[2018-07-21] MEDS: Aspirin Chewable 81 MG TAB PO SCH (11:02)
[2018-07-21] MEDS: Apixaban 2.5 MG TAB PO SCH ×2 (11:02→21:20)
[2018-07-21] MEDS: Allopurinol 100 MG TAB PO SCH (11:03)
[2018-07-21] MEDS: Gabapentin 100 MG CAP PO SCH ×2 (11:03→21:20)
[2018-07-21] MEDS: Ascorbic Acid 500 mg Chewable Tablet PO SCH (11:03)
[2018-07-21] MEDS: Amiodarone 200 MG TAB PO SCH (11:04)
[2018-07-21] MEDS: traMADol HCl 50 MG TAB PO PRN (11:05)
[2018-07-21] MEDS: Nystatin Powder 15 GM BOT TOP SCH ×2 (11:08→21:21)
--- NOTE | 2018-07-21 13:27 | PDOC.CTH ---
Cardiology Progress Note - Subjective The pt seen and examined. No cardiac complaints. No overnight events. - Objective Vital Signs Temp Pulse Resp BP BP Pulse Ox 07/21/18 12:31 92 L 07/21/18 08:15 97.6 F 90 18 119/58 L 83 L 07/21/18 03:48 97.4 F L 76 18 104/54 L 92 L Weight 238 lb 2 oz 07/20/18 07/21/18 07/22/18 06:59 06:59 06:59 Intake Total 1460 1460 Output Total 1000 825 Balance 460 635 - Physical Examination General/Neuro: alert & oriented x3 Neck: no JVD present Lungs: CTA Heart: RRR Abdomen: soft Extremities: + edema B (2-3+ pitting BLE edema) - Telemetry Telemetry Rhythm: V paced - Labs Result Diagrams: 07/19/18 23:03 07/21/18 04:40 Troponin/CKMB CK-MB (CK-2) 0.5 ng/mL (0-6.6) 07/17/18 23:10 Troponin I 0.042 ng/mL (< 0.028) H 07/17/18 23:10 - Assessment/Plan 1. Acute on chronic systolic HF - improving with Lasix 40mg IV BID; On bblocker due to hx of CAD. on Entresto for CMY/CHF. The BNP will be elevated with Entresto. May need dobutamine if the diuresis is not sufficient with diuretics alone. 2. Ischemic CMY with hx of AICD - AICD interrogation showed normal function; 3. Parox Afib - On Bblocker and Eliquis. 4. CAD with hx of [place] - stable; cont. to monitor on tele; On bblocker, ASA 81mg qd, and Statin, 5. HTN - stable 6. CKD - unchanged. Continue to monitor with the Entresto which contains an ARB. 7. DM type 2 - managed by PCP 8. Hypothyrodism - managed by PCP KRYSTAL reviewed .Pt. seen and eval. by me. I agree with the A/P by the BALL MAKER. Still has significant edema. I will add low dose dobutamine to increase the cardiac output and hopefully renal perfusion. Chest; decreased bases. RRR. 3+ edema. Review of Systems - Review of Systems Constitutional: reports: no symptoms reported EENTM: reports: no symptoms reported Respiratory: reports: no symptoms reported Cardiac (ROS): reports: no symptoms reported ABD/GI: reports: no symptoms reported : reports: no symptoms reported Musculoskeletal: reports: no symptoms reported
[2018-07-21] MEDS ORDERED: DOBUTamine 500 mg/250 ml 250 ML IVPB SCH (16:15)
[2018-07-21 21:08] LABS: Hemoglobin 9.6 g/dL (12.0-16.0); Platelet Count 155 thou/uL (130-400)
[2018-07-21] MEDS: Pravastatin Sodium 20 MG TAB PO SCH (21:20)
[2018-07-21] MEDS: Carvedilol 6.25 MG TAB PO SCH (21:21)
[2018-07-22] MEDS: Levothyroxine Sodium 100 MCG TAB PO SCH (06:12)
[2018-07-22] MEDS: Furosemide 40 MG/4 ML VIAL SLOW IVP SCH ×2 (06:14→14:03)
--- NOTE | 2018-07-22 06:23 | PDOC.FM ---
Addendum entered and electronically signed by Karla Scott MD 07/22/18 08:41 : Update to plan: -pt on pravastain, will continue Original Note: - Subjective Subjective: NAEO. Denies breathing problems-about the same/at baseline. Improved lower leg swelling. Denies chest pain. - Objective MAR Reviewed: Yes Vital Signs & Weight: Vital Signs (12 hours) Temp Pulse Resp BP BP Pulse Ox 07/22/18 03:40 97.5 F L 87 18 107/52 L 95 07/21/18 21:21 118/59 L 07/21/18 20:00 97.5 F L 86 18 110/53 L 95 Weight Weight 107.7 kg I&O: 07/20/18 07/21/18 07/22/18 06:59 06:59 06:59 Intake Total 1460 1460 1050 Output Total 2917 220 7146 Balance 460 635 -1900 Result Diagrams: 07/21/18 20:58 07/22/18 05:45 Phys Exam - Physical Examination Constitutional: NAD HEENT: PERRLA, oral pharynx no lesions Respiratory: no wheezing crackles in mid lungs Cardiovascular: RRR Gastrointestinal: soft 2+ edema in lower extremities up to mid floyd Neurological: moves all 4 limbs Psychiatric: normal affect, A&O x 3 Dx/Plan (1) Acute on chronic systolic CHF (congestive heart failure) Code(s): I50.23 - ACUTE ON CHRONIC SYSTOLIC (CONGESTIVE) HEART FAILURE Status : Acute (2) Anemia, macrocytic Code(s): D53.9 - NUTRITIONAL ANEMIA, UNSPECIFIED Status: Chronic (3) CKD (chronic kidney disease) stage 4, GFR 15-29 ml/min Code(s): N18.4 - CHRONIC KIDNEY DISEASE, STAGE 4 (SEVERE) Status: Chronic (4) DM II (diabetes mellitus, type II), controlled Code(s): E11.9 - TYPE 2 DIABETES MELLITUS WITHOUT COMPLICATIONS Status: Chronic (5) HFrEF (heart failure with reduced ejection fraction) Code(s): I50.20 - UNSPECIFIED SYSTOLIC (CONGESTIVE) HEART FAILURE Status: Chronic (6) Hypertension Code(s): I10 - ESSENTIAL (PRIMARY) HYPERTENSION Status: Chronic (7) Hypothyroidism Code(s): E03.9 - HYPOTHYROIDISM, UNSPECIFIED Status: Chronic (8) Ischemic cardiomyopathy Code(s): I25.5 - ISCHEMIC CARDIOMYOPATHY Status: Chronic (9) Morbid obesity with BMI of 40.0-44.9, adult Code(s): E66.01 - MORBID (SEVERE) OBESITY DUE TO EXCESS CALORIES; Z68.41 - BODY MASS INDEX (BMI) 40.0-44.9, ADULT Status: Chronic - Plan Plan: 82 yo F with PMH HFrEF, HTN, CAD, [place] is admitted for chest pain work up and CHF exacerbation. HFrEF exacerbation - last echo 09/2017 with EF 20-25%, diastolic dysfunction - hx of ischemic cardiomyopathy with AICD - BNP 2900 with initial edema up to hips. On home O2 of 2L. - continue IV diuresis, monitor I/Os (some voids not measured as pt missed) - Dr. Aquino consulted, given one time dose metolazone, on lasix 40 IV BID, bumex , dobutamine gtt started 07/21 - Appreciate cards recs Hypokalemia -3.4, likely from diuretics -one time PO dose -monitor, may need maintenance replacement Atypical chest pain, now resolved - Heart score 5 - trop neg - EKG was ventricular paced CKD3/4 - will monitor Cr on am labs considering diuresis, stable - Cr 1.60->1.5 HFrEF s/p AICD - consult heart failure team - continue home entresto, BB HLD - continue statin Hypothyroid - continue synthroid Chronic anemia, macrocytic - Hgb stable. B12 normal on previous check and iron deficient. - continue home iron Gout - continue home allopurinol History of DM2 - continue home gabapentin. Not on any medication for this. - Last A1c 6.2 in 09/2017 History of atrial fibrillation - paced, continue home amiodarone - Switched from warfarin to eliquis. History of [place] - continue home ASA History of GI bleed Diet: HH/fluid restrict Code: DNR Ppx: tracy PCP: Tim Lead Quality Technician: Kenia Dispo: diuresing well on entresto, IV lasix and dobutamine gtt. continue, appreciate cardiology recs. replace potassium laurie ldiscuss w/ Dr. Goldman Addendum - Attending - Attending Attestation Date/Time: 07/22/18 6154 I personally evaluated the patient and discussed the management with Dr. Scott I agree with the History, Examination, Assessment and Plan documented above with any addition or exceptions noted below. Dobutamine definitely has improved diuresis she is continuing to improve appreciate Recommendations per Cardiology.
[2018-07-22 06:33] LABS: Anion Gap 14 mmol/L (10-20); BUN (Urea Nitrogen) 52 mg/dL (9.8-20.1); Calc. Creatinine Clearance 50 mL/min (70-130); Calcium 8.9 mg/dL (7.8-10.44); Carbon Dioxide 27 mmol/L (23-31); Chloride 98 mmol/L (98-107); Estimated GFR-MDRD 34; Glucose 95 mg/dL (83-110); Potassium 3.4 mmol/L (3.5-5.1); Sodium 136 mmol/L (136-145)
[2018-07-22] MEDS: Sacubitril 49 MG/Valsartan 51 MG TABLET PO SCH ×2 (09:50→20:03)
[2018-07-22] MEDS: Aspirin Chewable 81 MG TAB PO SCH (09:50)
[2018-07-22] MEDS: Apixaban 2.5 MG TAB PO SCH ×2 (09:50→20:03)
[2018-07-22] MEDS: Amiodarone 200 MG TAB PO SCH (09:50)
[2018-07-22] MEDS: Allopurinol 100 MG TAB PO SCH (09:52)
[2018-07-22] MEDS: Potassium Chloride 20 MEQ TAB PO SCH (09:52)
[2018-07-22] MEDS: Carvedilol 3.125 MG TAB PO SCH (09:52)
[2018-07-22] MEDS: Ascorbic Acid 500 mg Chewable Tablet PO SCH (09:52)
[2018-07-22] MEDS: Docusate 100 MG CAP PO SCH (09:52)
[2018-07-22] MEDS: Gabapentin 100 MG CAP PO SCH ×2 (09:53→20:03)
[2018-07-22] MEDS: Nystatin Powder 15 GM BOT TOP SCH ×2 (09:53→20:07)
--- NOTE | 2018-07-22 16:05 | EKG ---
Test Reason : Blood Pressure : / mmHG Vent. Rate : 091 BPM Atrial Rate : 091 BPM P-R Int : 138 ms QRS Dur : 154 ms QT Int : 424 ms P-R-T Axes : 059 -05 056 degrees QTc Int : 521 ms Atrial-sensed ventricular-paced rhythm Abnormal ECG Confirmed by PARUL ZURITA ([id number]), business editor ANSON DALTON ([id number]) on 07/22/2018 4:04:43 PM Referred By: Confirmed By:PARUL ZURITA
--- NOTE | 2018-07-22 19:01 | PDOC.CTH ---
Cardiology Progress Note - Subjective No new issues. Edema still prominent and diuresis sub optimal. - Objective Vital Signs Temp Pulse Pulse Pulse Resp BP BP 07/22/18 14:15 85 85 114/56 L 109/54 L 07/22/18 08:00 97.9 F 95 20 BP Pulse Ox Pulse Ox 07/22/18 14:15 91 L 07/22/18 08:00 119/54 L 94 L Weight 237 lb 7 oz 07/21/18 07/22/18 07/23/18 06:59 06:59 06:59 Intake Total 1460 1050 Output Total 825 2950 Balance 635 -1900 - Physical Examination General/Neuro: alert & oriented x3, NAD Neck: no JVD present Lungs: CTA, unlabored respirations Heart: RRR Abdomen: NT/ND Extremities: + edema B (2+) - Telemetry Telemetry Rhythm: V-paced. - Labs Result Diagrams: 07/21/18 20:58 07/22/18 05:45 Troponin/CKMB CK-MB (CK-2) 0.5 ng/mL (0-6.6) 07/17/18 23:10 Troponin I 0.042 ng/mL (< 0.028) H 07/17/18 23:10 - Assessment/Plan 1. Acute on chronic systolic HF 2. Ischemic Cardiomyopathy 3. Paroxysmal Afib. 4. CAD with hx of [place] 5. HTN 6. CKD 7. DM type 2 8. Hypothyrodism PLAN: - Will increase dobutamine to 5. - Encouraged fluid restriction. - Continue IV lasix.
[2018-07-22] MEDS: Pravastatin Sodium 20 MG TAB PO SCH (20:03)
[2018-07-22] MEDS: Carvedilol 6.25 MG TAB PO SCH (20:03)
[2018-07-22] MEDS: DOBUTamine 500 mg/250 ml 250 ML IVPB SCH (20:13)
[2018-07-23] MEDS: Pantoprazole 40 MG GRANULES PACKET PO SCH (01:28)
[2018-07-23] MEDS: Levothyroxine Sodium 100 MCG TAB PO SCH (05:27)
[2018-07-23] MEDS: Furosemide 40 MG/4 ML VIAL SLOW IVP SCH ×2 (05:27→16:07)
[2018-07-23 05:28] LABS: Anion Gap 15 mmol/L (10-20); BUN (Urea Nitrogen) 44 mg/dL (9.8-20.1); Calc. Creatinine Clearance 55 mL/min (70-130); Calcium 9.1 mg/dL (7.8-10.44); Carbon Dioxide 28 mmol/L (23-31); Chloride 99 mmol/L (98-107); Estimated GFR-MDRD 37; Glucose 97 mg/dL (83-110); Potassium 3.5 mmol/L (3.5-5.1); Sodium 138 mmol/L (136-145)
[2018-07-23] MEDS: traMADol HCl 50 MG TAB PO PRN (05:30)
--- NOTE | 2018-07-23 05:46 | PDOC.FM ---
- Subjective Subjective: NAEO. Denies breathing problems, lower leg swelling much improved. - Objective MAR Reviewed: Yes Vital Signs & Weight: Vital Signs (12 hours) Temp Pulse Resp BP BP Pulse Ox 07/23/18 03:48 98.1 F 93 18 127/61 94 L 07/22/18 20:03 123/59 L 07/22/18 20:00 97.6 F 91 18 123/59 L 95 Weight Weight 107.7 kg I&O: 07/21/18 07/22/18 07/23/18 06:59 06:59 06:59 Intake Total 1460 1050 1441 Output Total 825 2950 2800 Balance 677 -5792 -4407 Result Diagrams: 07/21/18 20:58 07/23/18 04:35 Phys Exam - Physical Examination Constitutional: NAD HEENT: PERRLA, moist MMs Respiratory: no wheezing, clear to auscultation bilateral Cardiovascular: RRR, no significant murmur 1+ edema up to knees Neurological: non-focal, moves all 4 limbs Dx/Plan (1) Acute on chronic systolic CHF (congestive heart failure) Code(s): I50.23 - ACUTE ON CHRONIC SYSTOLIC (CONGESTIVE) HEART FAILURE Status : Acute (2) Anemia, macrocytic Code(s): D53.9 - NUTRITIONAL ANEMIA, UNSPECIFIED Status: Chronic (3) CKD (chronic kidney disease) stage 4, GFR 15-29 ml/min Code(s): N18.4 - CHRONIC KIDNEY DISEASE, STAGE 4 (SEVERE) Status: Chronic (4) DM II (diabetes mellitus, type II), controlled Code(s): E11.9 - TYPE 2 DIABETES MELLITUS WITHOUT COMPLICATIONS Status: Chronic (5) HFrEF (heart failure with reduced ejection fraction) Code(s): I50.20 - UNSPECIFIED SYSTOLIC (CONGESTIVE) HEART FAILURE Status: Chronic (6) Hypertension Code(s): I10 - ESSENTIAL (PRIMARY) HYPERTENSION Status: Chronic (7) Hypothyroidism Code(s): E03.9 - HYPOTHYROIDISM, UNSPECIFIED Status: Chronic (8) Ischemic cardiomyopathy Code(s): I25.5 - ISCHEMIC CARDIOMYOPATHY Status: Chronic (9) Morbid obesity with BMI of 40.0-44.9, adult Code(s): E66.01 - MORBID (SEVERE) OBESITY DUE TO EXCESS CALORIES; Z68.41 - BODY MASS INDEX (BMI) 40.0-44.9, ADULT Status: Chronic - Plan Plan: 82 yo F with PMH HFrEF, HTN, CAD, [place] is admitted for chest pain work up and CHF exacerbation. HFrEF exacerbation - last echo 09/2017 with EF 20-25%, diastolic dysfunction - hx of ischemic cardiomyopathy with AICD - BNP 2900 with initial edema up to hips. On home O2 of 2L. - diuresing well, 2.8L/24hr - Cards on board ---s/p metolazone x1 ---Continue IV lasix 40 IV BID, bumex ---Dobutamine gtt: Started 07/21. Increased to 5mcg/min - Currently, cardiology managing diruesis, appreciate reccs Hypokalemia, resolved -monitoring, replace as needed Atypical chest pain, now resolved - Heart score 5 - trop neg - EKG was ventricular paced CKD3/4 - improving, stable - Cr 1.60->1.5 -> 1.49 -> 1.36 HFrEF s/p AICD - consult heart failure team - continue home entresto, BB HLD - continue statin Hypothyroid - continue synthroid Chronic anemia, macrocytic - Hgb stable. B12 normal on previous check and iron deficient. - continue home iron Gout - continue home allopurinol History of DM2 - continue home gabapentin. Not on any medication for this. - Last A1c 6.2 in 09/2017 History of atrial fibrillation - paced, continue home amiodarone - Switched from warfarin to eliquis. History of [place] - continue home ASA History of GI bleed Diet: HH/fluid restrict Code: DNR Ppx: tracy PCP: Tim Carton Stenciler: Kenia Dispo: Diuresing well on entresto, IV lasix and dobutamine gtt. continue, appreciate cardiology recs in regards to this. close back to baseline, may be ready for d/c later today or tmrw. Will discuss w/ Dr. Goldman Addendum - Attending - Attending Attestation Date/Time: 07/23/18 7657 I personally evaluated the patient and discussed the management with Dr. Scott I agree with the History, Examination, Assessment and Plan documented above with any addition or exceptions noted below.
[2018-07-23] MEDS: Ascorbic Acid 500 mg Chewable Tablet PO SCH (10:33)
[2018-07-23] MEDS: Carvedilol 3.125 MG TAB PO SCH (10:34)
[2018-07-23] MEDS: Docusate 100 MG CAP PO SCH (10:34)
[2018-07-23] MEDS: Potassium Chloride 20 MEQ TAB PO SCH (10:35)
[2018-07-23] MEDS: Aspirin Chewable 81 MG TAB PO SCH (10:35)
[2018-07-23] MEDS: Allopurinol 100 MG TAB PO SCH (10:35)
[2018-07-23] MEDS: Gabapentin 100 MG CAP PO SCH ×2 (10:36→20:33)
[2018-07-23] MEDS: Amiodarone 200 MG TAB PO SCH (10:36)
[2018-07-23] MEDS: Sacubitril 49 MG/Valsartan 51 MG TABLET PO SCH (10:37)
[2018-07-23] MEDS: Apixaban 2.5 MG TAB PO SCH ×2 (10:37→20:56)
[2018-07-23] MEDS: Nystatin Powder 15 GM BOT TOP SCH ×2 (10:38→20:33)
[2018-07-23] MEDS: Acetaminophen 325 MG TAB PO PRN (13:21)
--- NOTE | 2018-07-23 15:57 | PDOC.CTH ---
Cardiology Progress Note - Subjective Significantly improved edema on higher dose of Dobutamine. Diuresing well now. - Objective Vital Signs Temp Pulse Resp BP Pulse Ox 07/23/18 10:59 97 18 114/63 07/23/18 08:00 97.6 F 95 18 110/52 L 90 L Weight 237 lb 7 oz 07/22/18 07/23/18 07/24/18 06:59 06:59 06:59 Intake Total 1050 1711 Output Total 2950 4000 Balance -1900 -2289 - Physical Examination General/Neuro: alert & oriented x3, NAD Neck: no JVD present Lungs: CTA, unlabored respirations Heart: RRR Abdomen: NT/ND Extremities: + edema B (1+) - Telemetry Telemetry Rhythm: V paced. - Labs Result Diagrams: 07/21/18 20:58 07/23/18 04:35 Troponin/CKMB CK-MB (CK-2) 0.5 ng/mL (0-6.6) 07/17/18 23:10 Troponin I 0.042 ng/mL (< 0.028) H 07/17/18 23:10 - Assessment/Plan 1. Acute on chronic systolic HF 2. Ischemic Cardiomyopathy 3. Paroxysmal Afib. 4. CAD with hx of [place] 5. HTN 6. CKD 7. DM type 2 8. Hypothyrodism PLAN: - Significant improvement in diuresis. - Continue IV lasix today and switch to PO tomorrow. and stop dobutamine in AM. - Home soon.
[2018-07-23] MEDS: Sodium Chloride 0.9% 250 ML IV SCH ×2 (16:15→17:23)
[2018-07-23] MEDS: DOBUTamine 500 mg/250 ml 250 ML IVPB SCH (16:15)
[2018-07-23] MEDS ORDERED: Sodium Chloride 0.9% 250 ML 250 ML IVPB SCH (17:30)
[2018-07-23] MEDS: Pravastatin Sodium 20 MG TAB PO SCH (20:33)
[2018-07-23 22:47] LABS: Hemoglobin 9.3 g/dL (12.0-16.0); Platelet Count 159 thou/uL (130-400)
[2018-07-24] MEDS: DOBUTamine 500 mg/250 ml 250 ML IVPB SCH ×3 (00:02→22:52)
[2018-07-24] MEDS: Levothyroxine Sodium 100 MCG TAB PO SCH (05:54)
[2018-07-24 07:19] LABS: Anion Gap 13 mmol/L (10-20); BUN (Urea Nitrogen) 46 mg/dL (9.8-20.1); Calc. Creatinine Clearance 47 mL/min (70-130); Calcium 9.1 mg/dL (7.8-10.44); Carbon Dioxide 29 mmol/L (23-31); Chloride 100 mmol/L (98-107); Estimated GFR-MDRD 31; Glucose 93 mg/dL (83-110); Potassium 3.9 mmol/L (3.5-5.1); Sodium 138 mmol/L (136-145)
--- NOTE | 2018-07-24 07:24 | PDOC.EVN ---
Addendum - Attending - Attending Attestation Date/Time: 07/24/18 4174 I personally evaluated the patient and discussed the management with Dr. Bergeron. I agree with the History, Examination, Assessment and Plan documented in her progress note with any addition or exceptions noted below. Patient reports feeling well. Denies shortness of breath. She continues to diurese and have improved BP with Dobutamine infusion. Continue that for now and plan to de-escalate with cardiology today based on their previous notes. Await further recs from them today. Creatinine with mild bump today so will need to continue to monitor that.
[2018-07-24] MEDS ORDERED: Furosemide 40 MG TAB PO SCH (09:00)
[2018-07-24] MEDS: Allopurinol 100 MG TAB PO SCH (09:18)
[2018-07-24] MEDS: Potassium Chloride 20 MEQ TAB PO SCH (09:18)
[2018-07-24] MEDS: Amiodarone 200 MG TAB PO SCH (09:18)
[2018-07-24] MEDS: Aspirin Chewable 81 MG TAB PO SCH (09:19)
[2018-07-24] MEDS: Apixaban 2.5 MG TAB PO SCH ×2 (09:19→19:52)
[2018-07-24] MEDS: Ascorbic Acid 500 mg Chewable Tablet PO SCH (09:19)
[2018-07-24] MEDS: Docusate 100 MG CAP PO SCH (09:19)
[2018-07-24] MEDS: Gabapentin 100 MG CAP PO SCH ×2 (09:19→19:52)
[2018-07-24] MEDS: Nystatin Powder 15 GM BOT TOP SCH ×2 (09:21→19:53)
--- NOTE | 2018-07-24 10:17 | PDOC.FM ---
- Subjective Subjective: Patient reports that her swelling has improved significantly. Denies any further SOB and is comfortable on her home 2-3L O2. Denies Chest pain. Reports feeling weak and did not get up out of bed yesterday. Denies any lightheadedness , dizziness, pre-sycope, syncope, palpitations. - Objective MAR Reviewed: Yes Vital Signs & Weight: Vital Signs (12 hours) Temp Pulse Resp BP Pulse Ox 07/24/18 07:58 98.1 F 103 H 13 112/56 L 92 L 07/24/18 04:00 98 F 99 17 100/49 L 92 L 07/24/18 03:38 98.0 F 99 17 100/49 L 92 L 07/24/18 00:00 89 100/56 L Weight Weight 107.7 kg I&O: 07/23/18 07/24/18 07/25/18 06:59 06:59 06:59 Intake Total 1711 2360 Output Total 4000 1695 Balance -2289 665 Result Diagrams: 07/23/18 22:41 07/24/18 06:40 Phys Exam - Physical Examination Constitutional: NAD HEENT: moist MMs, sclera anicteric Respiratory: no wheezing, no rales, no rhonchi, clear to auscultation bilateral Cardiovascular: RRR, no significant murmur, no rub Gastrointestinal: soft, non-tender, no distention, positive bowel sounds Musculoskeletal: pulses present, edema present (trace pedal edema bilaterally) Neurological: non-focal, moves all 4 limbs Psychiatric: normal affect, A&O x 3 Skin: normal turgor, cap refill <2 seconds Dx/Plan (1) Acute on chronic systolic CHF (congestive heart failure) Code(s): I50.23 - ACUTE ON CHRONIC SYSTOLIC (CONGESTIVE) HEART FAILURE Status : Acute (2) CAD (coronary artery disease) Code(s): I25.10 - ATHSCL HEART DISEASE OF [place] CORONARY ARTERY W/O ANG PCTRS Status: Acute (3) DM II (diabetes mellitus, type II), controlled Code(s): E11.9 - TYPE 2 DIABETES MELLITUS WITHOUT COMPLICATIONS Status: Chronic (4) Hypertension Code(s): I10 - ESSENTIAL (PRIMARY) HYPERTENSION Status: Chronic (5) Hypothyroidism Code(s): E03.9 - HYPOTHYROIDISM, UNSPECIFIED Status: Chronic (6) Ischemic cardiomyopathy Code(s): I25.5 - ISCHEMIC CARDIOMYOPATHY Status: Chronic (7) Afib Code(s): I48.91 - UNSPECIFIED ATRIAL FIBRILLATION Status: Chronic (8) CKD (chronic kidney disease) stage 3, GFR 30-59 ml/min Code(s): N18.3 - CHRONIC KIDNEY DISEASE, STAGE 3 (MODERATE) Status: Chronic (9) Gout Code(s): M10.9 - GOUT, UNSPECIFIED Status: Chronic - Plan Plan: Acute HFrEF exacerbation last echo 09/2017 with EF 20-25%, diastolic dysfunction. Hx of ischemic cardiomyopathy with AICD BNP 2900 with initial edema up to hips. On home O2 of 2L. Edema now improved significantly. Breathing comfortably on home O2. - Cards on board, appreciate recs. - Was initially on IV lasix, but this was d/c'd yesterday by Ralph. Patient had an episode of hypotension and decreased UOP. She was started on Dobutamine. No longer on any diuretics, will defer to cardiology for management of this. - Dobutamine gtt: Started 07/21. 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 B12 normal on previous check and iron deficient. - continue home iron Gout - continue home allopurinol Diabetes Mellitus, Type 2, well controlled Last A1c 6.2 in 09/2017. Not on any meds. - continue home gabapentin. History of atrial fibrillation - paced, continue home amiodarone - Switched from warfarin to eliquis. History of [place] - continue home ASA Code: DNR VTE Ppx: eliquis Dispo: Diuresed well. Will need dobutamine d/c'd and outpt diuretic regimen chosen prior to d/c.
--- NOTE | 2018-07-24 11:18 | PDOC.CTH ---
Cardiology Progress Note - Subjective The pt seen and examined. No overnight events. No cardiac complaints. - Objective Vital Signs Temp Pulse Resp BP Pulse Ox 07/24/18 08:00 92 L 07/24/18 07:58 98.1 F 103 H 13 112/56 L 92 L 07/24/18 04:00 98 F 99 17 100/49 L 92 L 07/24/18 03:38 98.0 F 99 17 100/49 L 92 L 07/24/18 00:00 89 100/56 L Weight 237 lb 7 oz 07/23/18 07/24/18 07/25/18 06:59 06:59 06:59 Intake Total 1711 2360 Output Total 4000 1695 Balance -2289 665 - Physical Examination General/Neuro: alert & oriented x3 Neck: no JVD present Lungs: CTA Heart: RRR Abdomen: soft Extremities: other: (2-3+ pitting BLE edema) - Telemetry Telemetry Rhythm: V paced > 100 - Labs Result Diagrams: 07/23/18 22:41 07/24/18 06:40 Troponin/CKMB CK-MB (CK-2) 0.5 ng/mL (0-6.6) 07/17/18 23:10 Troponin I 0.042 ng/mL (< 0.028) H 07/17/18 23:10 - Assessment/Plan 1. Acute on chronic systolic HF - improving with Dobutamine 7.5mcg/kg/min; Lasix 40mg IV stopped from today. Will give another Lasix 40mg IV today and start Lasix 40mg PO BID from tomorrow; Bblocker is on hold 2/2 Dobutamine; On Entresto for CMY/CHF. The BNP will be elevated with Entresto. 2. Ischemic CMY with hx of AICD - AICD interrogation showed normal function; 3. Parox Afib - On Bblocker and Eliquis. 4. CAD with hx of [place] - stable; cont. to monitor on tele; On ASA 81mg qd, and Statin. Not on BBlocker 2/2 dobutamine 5. HTN - stable 6. CKD - unchanged. Continue to monitor with the Entresto which contains an ARB. 7. DM type 2 - managed by PCP 8. Hypothyrodism - managed by PCP MAR reviewed pt. seen and eval. by me. I agree with the A/P by the INSULATION WORKER INTERIOR SURFACE. We have discussed the pt. and plan. Chest : left basilar rales. RRR, decreased lower extremity edema. gjm Review of Systems - Review of Systems Constitutional: reports: weakness EENTM: reports: no symptoms reported Respiratory: reports: no symptoms reported Cardiac (ROS): reports: no symptoms reported ABD/GI: reports: no symptoms reported : reports: no symptoms reported Musculoskeletal: reports: no symptoms reported Skin: reports: no symptoms reported
[2018-07-24] MEDS ORDERED: Furosemide 40 MG/4 ML VIAL SLOW IVP SCH (13:15)
[2018-07-24 14:44] VITALS: BMI 38.3
[2018-07-24] MEDS ORDERED: Warfarin Sodium 2 MG TAB PO SCH (17:00)
[2018-07-24] MEDS: Pravastatin Sodium 20 MG TAB PO SCH (19:52)
[2018-07-25] MEDS: Acetaminophen 325 MG TAB PO PRN (02:52)
[2018-07-25] MEDS: Levothyroxine Sodium 100 MCG TAB PO SCH (05:27)
[2018-07-25] MEDS: traMADol HCl 50 MG TAB PO PRN (05:35)
[2018-07-25 07:20] LABS: Anion Gap 15 mmol/L (10-20); BUN (Urea Nitrogen) 42 mg/dL (9.8-20.1); Calc. Creatinine Clearance 50 mL/min (70-130); Calcium 9.4 mg/dL (7.8-10.44); Carbon Dioxide 27 mmol/L (23-31); Chloride 99 mmol/L (98-107); Estimated GFR-MDRD 33; Glucose 98 mg/dL (83-110); Potassium 4.1 mmol/L (3.5-5.1); Sodium 137 mmol/L (136-145)
[2018-07-25] MEDS ORDERED: Morphine 2 MG/ML SYRINGE SLOW IVP SCH (07:48)
--- NOTE | 2018-07-25 07:48 | PDOC.FM ---
- Subjective Subjective: Patient reports that the chest pain that she had on admission has returned. She reports it is R sided in her ribs and hurts worse if she presses on it or if she takes deep breaths. She was given tylenol and tramadol and reports no improvement with these. She is taking more shallow breaths as a result of this. She reports the swelling in her legs has improved. Denies palpitations, diaphoresis. - Objective MAR Reviewed: Yes Vital Signs & Weight: Vital Signs (12 hours) Temp Pulse Resp BP Pulse Ox 07/25/18 07:45 94 L 07/25/18 07:29 97.8 F 111 H 20 116/58 L 94 L 07/25/18 04:00 108 H 18 114/54 L 93 L 07/25/18 03:26 98.7 F 100 18 104/54 L 93 L 07/25/18 00:00 93 16 116/54 L 95 07/24/18 19:50 97.6 F 99 18 111/56 L 93 L Weight Admit Weight 109.996 kg Weight 107.456 kg I&O: 07/24/18 07/25/18 07/26/18 06:59 06:59 06:59 Intake Total 2360 1280 Output Total 1695 1825 Balance 665 -545 Result Diagrams: 07/23/18 22:41 07/25/18 06:42 Phys Exam - Physical Examination moaning in pain, taking shallow breaths HEENT: moist MMs, sclera anicteric Respiratory: no wheezing, no rales, no rhonchi, clear to auscultation bilateral Cardiovascular: RRR, no significant murmur, no rub chest pain reproducible on palpation of R chest wall Gastrointestinal: soft, non-tender, positive bowel sounds Musculoskeletal: pulses present, edema present (trace pitting edema in bilateral feet up to ankles) Neurological: non-focal, moves all 4 limbs Psychiatric: normal affect, A&O x 3 Skin: normal turgor, cap refill <2 seconds Dx/Plan (1) Acute on chronic systolic CHF (congestive heart failure) Code(s): I50.23 - ACUTE ON CHRONIC SYSTOLIC (CONGESTIVE) HEART FAILURE Status : Acute (2) CAD (coronary artery disease) Code(s): I25.10 - ATHSCL HEART DISEASE OF [place] CORONARY ARTERY W/O ANG PCTRS Status: Acute (3) DM II (diabetes mellitus, type II), controlled Code(s): E11.9 - TYPE 2 DIABETES MELLITUS WITHOUT COMPLICATIONS Status: Chronic (4) Hypertension Code(s): I10 - ESSENTIAL (PRIMARY) HYPERTENSION Status: Chronic (5) Hypothyroidism Code(s): E03.9 - HYPOTHYROIDISM, UNSPECIFIED Status: Chronic (6) Ischemic cardiomyopathy Code(s): I25.5 - ISCHEMIC CARDIOMYOPATHY Status: Chronic (7) Afib Code(s): I48.91 - UNSPECIFIED ATRIAL FIBRILLATION Status: Chronic (8) CKD (chronic kidney disease) stage 3, GFR 30-59 ml/min Code(s): N18.3 - CHRONIC KIDNEY DISEASE, STAGE 3 (MODERATE) Status: Chronic (9) Gout Code(s): M10.9 - GOUT, UNSPECIFIED Status: Chronic - Plan Plan: Acute HFrEF exacerbation last echo 09/2017 with EF 20-25%, diastolic dysfunction. Hx of ischemic cardiomyopathy with AICD BNP 2900 with initial edema up to hips. On home O2 of 2L. Edema now improved significantly. Breathing comfortably on home O2. - Cards on board, appreciate recs. - Was initially on IV lasix, now transitioned to PO lasix - Dobutamine gtt: Started 07/21. Management per cardiology Hypokalemia, resolved -monitor, replace as needed Atypical chest pain Heart score 5 - trop neg - EKG was ventricular paced Chest pain has recurred, it is reproducible on palpation, so unlikely cardiac source. Appears pleuritic vs MSK. 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 B12 normal on previous check and iron deficient. - continue home iron Gout - continue home allopurinol Diabetes Mellitus, Type 2, well controlled Last A1c 6.2 in 09/2017. Not on any meds. - continue home gabapentin. History of atrial fibrillation - paced, continue home amiodarone - Switched from warfarin to eliquis. History of [place] - continue home ASA Code: DNR VTE Ppx: eliquis Dispo: Diuresed well. d/c after dobutamine d/c'd and cardiology cleared patient for d/c. Addendum - Attending - Attending Attestation Date/Time: 07/25/18 0803 I personally evaluated the patient and discussed the management with Dr. Bergeron. I agree with the History, Examination, Assessment and Plan documented above with any addition or exceptions noted below. Patient overall stable. Reports R sided chest pain that was present at time of admission, pleuritic in nature and has returned. Tender to palpation. Will obtain CXR and provide pain control. Patient on Eliquis for anticoagulation. She continues on dobutamine for lasix, attempt to wean today. Await further cardiology recs. Renal function stable.
[2018-07-25] MEDS: Amiodarone 200 MG TAB PO SCH (08:23)
[2018-07-25] MEDS: Potassium Chloride 20 MEQ TAB PO SCH (08:23)
[2018-07-25] MEDS: Allopurinol 100 MG TAB PO SCH (08:23)
[2018-07-25] MEDS: Ascorbic Acid 500 mg Chewable Tablet PO SCH (08:24)
[2018-07-25] MEDS: Apixaban 2.5 MG TAB PO SCH ×2 (08:24→20:26)
[2018-07-25] MEDS: Aspirin Chewable 81 MG TAB PO SCH (08:24)
[2018-07-25] MEDS: Docusate 100 MG CAP PO SCH (08:24)
[2018-07-25] MEDS: Nystatin Powder 15 GM BOT TOP SCH ×2 (08:25→20:26)
[2018-07-25] MEDS: Gabapentin 100 MG CAP PO SCH ×2 (08:25→20:26)
[2018-07-25] MEDS: Furosemide 40 MG TAB PO SCH ×2 (08:25→14:50)
[2018-07-25] MEDS: DOBUTamine 500 mg/250 ml 250 ML IVPB SCH (09:42)
--- NOTE | 2018-07-25 10:42 | RAD ---
SINGLE VIEW CHEST: Date: 07/25/18 COMPARISON: 07/17/18. HISTORY: Chest pain. FINDINGS: Single view of the chest shows an enlarged but stable cardiomediastinal silhouette with atherosclerot ic calcifications in the aorta. There is a pacemaker with its leads in the right atrium, right ventri izabel, and coronary sinus. Increased interstitial markings are present. No consolidation is seen. IMPRESSION: Stable exam. POS: CONCHIS
--- NOTE | 2018-07-25 13:27 | PDOC.CTH ---
Cardiology Progress Note - Subjective The pt seen and examined. No overnight events. No cardiac complaints. - Objective Vital Signs Temp Pulse Pulse Pulse Resp BP BP 07/25/18 11:15 98.2 F 105 H 18 07/25/18 11:11 104 H 104 H 117/57 L 106/53 L 07/25/18 07:45 07/25/18 07:29 97.8 F 111 H 20 07/25/18 04:00 108 H 18 07/25/18 03:26 98.7 F 100 18 BP Pulse Ox 07/25/18 11:15 117/59 L 96 07/25/18 11:11 07/25/18 07:45 94 L 07/25/18 07:29 116/58 L 94 L 07/25/18 04:00 114/54 L 93 L 07/25/18 03:26 104/54 L 93 L Admit Weight 242 lb 8 oz Weight 236 lb 14.4 oz 07/24/18 07/25/18 07/26/18 06:59 06:59 06:59 Intake Total 2360 1280 Output Total 1695 1825 Balance 665 -545 - Physical Examination General/Neuro: alert & oriented x3 Neck: no JVD present Lungs: other: (diminished at bases) Heart: RRR Abdomen: soft Extremities: other: (2+ pitting BLE edema) - Telemetry Telemetry Rhythm: ST 110s - Labs Result Diagrams: 07/25/18 22:29 07/26/18 04:23 Troponin/CKMB CK-MB (CK-2) 0.5 ng/mL (0-6.6) 07/17/18 23:10 Troponin I 0.042 ng/mL (< 0.028) H 07/17/18 23:10 - Assessment/Plan 1. Acute on chronic systolic HF - improving with Dobutamine 7.5mcg/kg/min, which will be decreased to 5mcg/kg/min; Lasix 40mg PO BID; BBllocker is on hold due to Dobutamine; On Entresto for CMY/CHF. The BNP will be elevated with Entresto. 2. Ischemic CMY with hx of AICD - AICD interrogation showed normal function; 3. Parox Afib - On Bblocker and Eliquis. 4. CAD with hx of [place] - stable; cont. to monitor on tele; On ASA 81mg qd, and Statin. Not on BBlocker 2/2 dobutamine 5. HTN - stable 6. CKD - unchanged. Continue to monitor with the Entresto which contains an ARB. 7. DM type 2 - managed by PCP 8. Hypothyrodism - managed by PCP 9. Atypical CP - The pain aggravates with movement/palpitation to the site. Cont. to monitor MAR reviewed Pt. seen and eval. by me. I agree with the A/P by the AIRPLANE DISPATCH CLERK.Chest : decreased BS on the right with E-> A changes. RRR, tachycardia at times./VPaced. Continue supportive care. Her cardiac function is severely compromised.She will abril to watch her vol. intake very closely. If she remains stable, titrate the dobutamine to off and continue po diuretics. Review of Systems - Review of Systems Constitutional: reports: no symptoms reported EENTM: reports: no symptoms reported Respiratory: reports: no symptoms reported Cardiac (ROS): reports: no symptoms reported ABD/GI: reports: no symptoms reported : reports: no symptoms reported Musculoskeletal: reports: see HPI
[2018-07-25] MEDS ORDERED: DOBUTamine 500 mg/250 ml 250 ML IVPB SCH (13:45)
[2018-07-25] MEDS: Pravastatin Sodium 20 MG TAB PO SCH (20:26)
[2018-07-25 22:52] LABS: Hemoglobin 9.4 g/dL (12.0-16.0); Platelet Count 160 thou/uL (130-400)
[2018-07-26 06:00] LABS: Anion Gap 14 mmol/L (10-20); BUN (Urea Nitrogen) 46 mg/dL (9.8-20.1); Calc. Creatinine Clearance 46 mL/min (70-130); Calcium 9.4 mg/dL (7.8-10.44); Carbon Dioxide 29 mmol/L (23-31); Chloride 99 mmol/L (98-107); Estimated GFR-MDRD 30; Glucose 93 mg/dL (83-110); Potassium 4.6 mmol/L (3.5-5.1); Sodium 137 mmol/L (136-145)
[2018-07-26] MEDS: Levothyroxine Sodium 100 MCG TAB PO SCH (06:09)
[2018-07-26] MEDS ORDERED: Methyl Salicylate/Menthol 85 GM TUBE TOP PRN (06:57)
[2018-07-26] MEDS ORDERED: Cyclobenzaprine 10 MG TAB PO SCH (07:00)
--- NOTE | 2018-07-26 07:36 | PDOC.EVN ---
Addendum - Attending - Attending Attestation Date/Time: 07/26/18 0913 I personally evaluated the patient and discussed the management with Dr. Bergeron. I agree with the History, Examination, Assessment and Plan documented in her progress note with any addition or exceptions noted below. Patient continues to report R sided chest pain. It resolved yesterday but recurred. Does not appear to be related to cardiac nature pain due to its reproducibility and pleuritic nature. Will give trial of Flexeril and Bengay cream. SHe continues to diurese on Dobutamine. Labs overall stable. Await further cardiology recs regarding the wean of Dobutamine. Oxygenation status stable.
[2018-07-26] MEDS: Apixaban 2.5 MG TAB PO SCH ×2 (08:21→20:36)
[2018-07-26] MEDS: Allopurinol 100 MG TAB PO SCH (08:22)
[2018-07-26] MEDS: Amiodarone 200 MG TAB PO SCH (08:22)
[2018-07-26] MEDS: Furosemide 40 MG TAB PO SCH ×2 (08:22→14:49)
[2018-07-26] MEDS: Potassium Chloride 20 MEQ TAB PO SCH (08:22)
[2018-07-26] MEDS: Ascorbic Acid 500 mg Chewable Tablet PO SCH (08:23)
[2018-07-26] MEDS: Gabapentin 100 MG CAP PO SCH ×2 (08:23→20:36)
[2018-07-26] MEDS: Aspirin Chewable 81 MG TAB PO SCH (08:23)
[2018-07-26] MEDS: Nystatin Powder 15 GM BOT TOP SCH ×2 (08:24→20:36)
[2018-07-26] MEDS: Docusate 100 MG CAP PO SCH (08:24)
--- NOTE | 2018-07-26 09:24 | PDOC.FM ---
- Subjective Subjective: Patient reports continued right sided chest pain that is worse with palpation or deep breaths and comes and goes. The morphine helped, but made her very sleepy all day. She denies any worsened swelling or SOB. Denies N/V. - Objective MAR Reviewed: Yes Vital Signs & Weight: Vital Signs (12 hours) Temp Pulse Resp BP Pulse Ox 07/26/18 07:15 97.7 F 95 19 146/69 H 95 07/26/18 03:07 98.3 F 96 18 120/60 98 07/26/18 00:00 101 H 110/58 L Weight Admit Weight 109.996 kg Weight 107.637 kg I&O: 07/25/18 07/26/18 07/27/18 06:59 06:59 06:59 Intake Total 1280 740 Output Total 1825 1150 Balance -545 -410 Result Diagrams: 07/25/18 22:29 07/26/18 04:23 Phys Exam - Physical Examination Constitutional: NAD HEENT: moist MMs, sclera anicteric rhonchi in bilateral bases, poor respiratory effort Cardiovascular: RRR, no significant murmur, no rub Gastrointestinal: soft, non-tender, no distention, positive bowel sounds Musculoskeletal: pulses present, edema present (trace edema) pain with palpation of R chest Neurological: non-focal, moves all 4 limbs Psychiatric: normal affect, A&O x 3 Skin: normal turgor, cap refill <2 seconds Dx/Plan (1) Acute on chronic systolic CHF (congestive heart failure) Code(s): I50.23 - ACUTE ON CHRONIC SYSTOLIC (CONGESTIVE) HEART FAILURE Status : Acute (2) CAD (coronary artery disease) Code(s): I25.10 - ATHSCL HEART DISEASE OF [place] CORONARY ARTERY W/O ANG PCTRS Status: Acute (3) DM II (diabetes mellitus, type II), controlled Code(s): E11.9 - TYPE 2 DIABETES MELLITUS WITHOUT COMPLICATIONS Status: Chronic (4) Hypertension Code(s): I10 - ESSENTIAL (PRIMARY) HYPERTENSION Status: Chronic (5) Hypothyroidism Code(s): E03.9 - HYPOTHYROIDISM, UNSPECIFIED Status: Chronic (6) Ischemic cardiomyopathy Code(s): I25.5 - ISCHEMIC CARDIOMYOPATHY Status: Chronic (7) Afib Code(s): I48.91 - UNSPECIFIED ATRIAL FIBRILLATION Status: Chronic (8) CKD (chronic kidney disease) stage 3, GFR 30-59 ml/min Code(s): N18.3 - CHRONIC KIDNEY DISEASE, STAGE 3 (MODERATE) Status: Chronic (9) Gout Code(s): M10.9 - GOUT, UNSPECIFIED Status: Chronic - Plan Plan: Acute HFrEF exacerbation last echo 09/2017 with EF 20-25%, diastolic dysfunction. Hx of ischemic cardiomyopathy with AICD BNP 2900 with initial edema up to hips. On home O2 of 2L. Edema now improved significantly. Breathing comfortably on home O2. - Cards on board, appreciate recs. - Was initially on IV lasix, now transitioned to PO lasix - Dobutamine gtt: Started 07/21. Management per cardiology Hypokalemia, resolved -monitor, replace as needed Atypical chest pain CXR showed no cause for pain Chest pain has recurred, it is reproducible on palpation, so unlikely cardiac source. Appears pleuritic vs MSK. 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 B12 normal on previous check and iron deficient. - continue home iron Gout - continue home allopurinol Diabetes Mellitus, Type 2, well controlled Last A1c 6.2 in 09/2017. Not on any meds. - continue home gabapentin. History of atrial fibrillation - paced, continue home amiodarone - Switched from warfarin to eliquis. History of [place] - continue home ASA Code: DNR VTE Ppx: eliquis Dispo: Diuresed well. d/c after cardiology cleared patient
--- NOTE | 2018-07-26 16:42 | PDOC.CTH ---
Cardiology Progress Note - Subjective The pt seen and examined. No overnight events. No cardiac complaints. She cont. having sharp pain to Rt chest, which is musculoskelatal in nature. - Objective Vital Signs Temp Pulse Resp BP Pulse Ox 07/26/18 12:20 97.5 F L 110 H 22 H 116/56 L 93 L 07/26/18 07:15 97.7 F 95 19 146/69 H 95 Admit Weight 242 lb 8 oz Weight 237 lb 4.8 oz 07/25/18 07/26/18 07/27/18 06:59 06:59 06:59 Intake Total 1280 740 Output Total 1825 1150 Balance -545 -410 - Physical Examination General/Neuro: alert & oriented x3 Neck: no JVD present Lungs: CTA Heart: RRR Abdomen: soft Extremities: other: (2+ pitting BLE edema, Rt>Lt) - Telemetry Telemetry Rhythm: ST - Labs Result Diagrams: 07/25/18 22:29 07/26/18 04:23 Troponin/CKMB CK-MB (CK-2) 0.5 ng/mL (0-6.6) 07/17/18 23:10 Troponin I 0.042 ng/mL (< 0.028) H 07/17/18 23:10 - Assessment/Plan 1. Acute on chronic systolic HF - improving with Dobutamine 2.5mcg/kg/min, which was stopped today. Cont. Lasix 40mg PO BID; resume Coreg 3.125mg in AM and 6.25mg in PM; On Entresto for CMY/CHF. The BNP will be elevated with Entresto. 2. Ischemic CMY with hx of AICD - AICD interrogation showed normal function; 3. Parox Afib - On Bblocker and Eliquis. 4. CAD with hx of [place] - stable; cont. to monitor on tele; On ASA 81mg qd, Coreg, and Statin. 5. HTN - stable 6. CKD - unchanged. Continue to monitor with the Entresto which contains an ARB. 7. DM type 2 - managed by PCP 8. Hypothyrodism - managed by PCP 9. Atypical CP - The pain aggravates with movement/palpitation to the site. Cont. to monitor MAR reviewed * She will need to watch her vol. intake very closely. Pt. seen and eval;. by me. I agree with the A/P by the CUSTOMER EXPERIENCE SPECIALIST. She is weak and has difficulty even walking to the bathroom with assistance. Her overall prognosis is poor. I will see how she does off the dobutamine. She needs to be vol. restricted to 1500 ml/24hrs. gjm Review of Systems - Review of Systems Constitutional: reports: no symptoms reported EENTM: reports: no symptoms reported Respiratory: reports: no symptoms reported Cardiac (ROS): reports: no symptoms reported ABD/GI: reports: no symptoms reported : reports: no symptoms reported Musculoskeletal: reports: see HPI
[2018-07-26] MEDS: Carvedilol 6.25 MG TAB PO SCH (17:16)
[2018-07-26] MEDS: Pravastatin Sodium 20 MG TAB PO SCH (20:36)
[2018-07-27 05:44] LABS: Anion Gap 17 mmol/L (10-20); BUN (Urea Nitrogen) 52 mg/dL (9.8-20.1); Calc. Creatinine Clearance 42 mL/min (70-130); Calcium 9.7 mg/dL (7.8-10.44); Carbon Dioxide 26 mmol/L (23-31); Chloride 97 mmol/L (98-107); Estimated GFR-MDRD 27; Glucose 112 mg/dL (83-110); Potassium 4.6 mmol/L (3.5-5.1); Sodium 135 mmol/L (136-145)
--- NOTE | 2018-07-27 06:34 | PDOC.FM ---
- Subjective Subjective: Patient reports that medications yesterday helped her chest pain. Denies any current chest pain, SOB. Reports continued cough. Denies any swelling in legs. Tolerating PO well. Reports feeling overall weak. - Objective MAR Reviewed: Yes Vital Signs & Weight: Vital Signs (12 hours) Temp Pulse Resp BP BP Pulse Ox 07/27/18 02:58 98.3 F 92 20 117/59 L 94 L 07/27/18 00:00 90 113/58 L 07/26/18 20:00 97.5 F L 92 20 112/57 L 96 Weight Admit Weight 109.996 kg Weight 107.637 kg I&O: 07/25/18 07/26/18 07/27/18 06:59 06:59 06:59 Intake Total 1280 740 776.7 Output Total 1825 1150 650 Balance -545 -410 126.7 Result Diagrams: 07/25/18 22:29 07/27/18 04:51 Phys Exam - Physical Examination Constitutional: NAD HEENT: moist MMs, sclera anicteric Respiratory: no wheezing bilateral base rhonchi Cardiovascular: RRR, no significant murmur, no rub Gastrointestinal: soft, non-tender, no distention, positive bowel sounds Musculoskeletal: pulses present, edema present (trace pedal edema) Neurological: non-focal, moves all 4 limbs Psychiatric: normal affect, A&O x 3 Dx/Plan (1) Acute on chronic systolic CHF (congestive heart failure) Code(s): I50.23 - ACUTE ON CHRONIC SYSTOLIC (CONGESTIVE) HEART FAILURE Status : Acute (2) CAD (coronary artery disease) Code(s): I25.10 - ATHSCL HEART DISEASE OF [place] CORONARY ARTERY W/O ANG PCTRS Status: Acute (3) DM II (diabetes mellitus, type II), controlled Code(s): E11.9 - TYPE 2 DIABETES MELLITUS WITHOUT COMPLICATIONS Status: Chronic (4) Hypertension Code(s): I10 - ESSENTIAL (PRIMARY) HYPERTENSION Status: Chronic (5) Hypothyroidism Code(s): E03.9 - HYPOTHYROIDISM, UNSPECIFIED Status: Chronic (6) Ischemic cardiomyopathy Code(s): I25.5 - ISCHEMIC CARDIOMYOPATHY Status: Chronic (7) Afib Code(s): I48.91 - UNSPECIFIED ATRIAL FIBRILLATION Status: Chronic (8) CKD (chronic kidney disease) stage 3, GFR 30-59 ml/min Code(s): N18.3 - CHRONIC KIDNEY DISEASE, STAGE 3 (MODERATE) Status: Chronic (9) Gout Code(s): M10.9 - GOUT, UNSPECIFIED Status: Chronic - Plan Plan: Acute HFrEF exacerbation last echo 09/2017 with EF 20-25%, diastolic dysfunction. Hx of ischemic cardiomyopathy with AICD BNP 2900 with initial edema up to hips. On home O2 of 2L. Edema now improved significantly. Breathing comfortably on home O2. - Cards on board, appreciate recs. - Was initially on IV lasix, now transitioned to PO lasix - Was on Dobutamine gtt, but was d/c'd yesterday. - Fluid restrict to 1500mL - Strict I/O's and daily weights Hypokalemia, resolved -monitor, replace as needed Atypical chest pain, resolved CXR showed no cause for pain Chest pain has recurred, it is reproducible on palpation, so unlikely cardiac source. Appears pleuritic vs MSK. 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 B12 normal on previous check and iron deficient. - continue home iron Gout - continue home allopurinol Diabetes Mellitus, Type 2, well controlled Last A1c 6.2 in 09/2017. Not on any meds. - continue home gabapentin. History of atrial fibrillation - paced, continue home amiodarone - Switched from warfarin to eliquis. History of [place] - continue home ASA Code: DNR VTE Ppx: eliquis Dispo: Anticipate d/c to [facility] today if BP's remain stable Addendum - Attending - Attending Attestation Date/Time: 07/27/18 2781 I personally evaluated the patient and discussed the management with Dr. Bergeron. I agree with the History, Examination, Assessment and Plan documented above with any addition or exceptions noted below. Patient resting comfortably. She is off Dobutamine and renal function overall stable and BP improved. Continue PO diuresis. Awaiting further cardiology recs but patient may be nearing point of discharge.
[2018-07-27] MEDS: Levothyroxine Sodium 100 MCG TAB PO SCH (06:42)
[2018-07-27] MEDS: Amiodarone 200 MG TAB PO SCH (09:42)
[2018-07-27] MEDS: Allopurinol 100 MG TAB PO SCH (09:42)
[2018-07-27] MEDS: Potassium Chloride 20 MEQ TAB PO SCH (09:42)
[2018-07-27] MEDS: Aspirin Chewable 81 MG TAB PO SCH (09:43)
[2018-07-27] MEDS: Apixaban 2.5 MG TAB PO SCH ×2 (09:43→22:23)
[2018-07-27] MEDS: Ascorbic Acid 500 mg Chewable Tablet PO SCH (09:43)
[2018-07-27] MEDS: Carvedilol 3.125 MG TAB PO SCH (09:43)
[2018-07-27] MEDS: Furosemide 40 MG TAB PO SCH ×2 (09:44→14:53)
[2018-07-27] MEDS: Gabapentin 100 MG CAP PO SCH ×2 (09:44→21:04)
[2018-07-27] MEDS: Docusate 100 MG CAP PO SCH (09:44)
[2018-07-27] MEDS: Nystatin Powder 15 GM BOT TOP SCH ×2 (10:10→21:05)
--- NOTE | 2018-07-27 15:29 | PDOC.CTH ---
Cardiology Progress Note - Subjective pt. seen and eval. by me. No new events overnight. - Objective Vital Signs Temp Pulse Resp BP Pulse Ox 07/27/18 12:21 97.2 F L 93 15 107/57 L 94 L 07/27/18 08:14 98.2 F 96 14 111/60 93 L 07/27/18 08:00 93 L Admit Weight 242 lb 8 oz Weight 236 lb 12.8 oz 07/26/18 07/27/18 07/28/18 06:59 06:59 06:59 Intake Total 740 896.7 Output Total 1150 1175 Balance -410 -278.3 - Physical Examination General/Neuro: alert & oriented x3 Neck: no JVD present Lungs: CTA Heart: RRR Abdomen: NT/ND, soft - Telemetry Telemetry Rhythm: /COLDFUSION - Labs Result Diagrams: 07/25/18 22:29 07/27/18 04:51 Troponin/CKMB CK-MB (CK-2) 0.5 ng/mL (0-6.6) 07/17/18 23:10 Troponin I 0.042 ng/mL (< 0.028) H 07/17/18 23:10 - Assessment/Plan 1. Acute on chronic systolic HF - stable off Dobutamine . Cont. Lasix 40mg PO BID; resume Coreg 3.125mg in AM and 6.25mg in PM; On Entresto for CMY/CHF. The BNP will be elevated with Entresto. 2. Ischemic CMY with hx of AICD - AICD interrogation showed normal function; 3. Parox Afib - Today /COLDFUSION. sinus rhythm. On Bblocker and Eliquis. 4. CAD with hx of [place] - stable; cont. to monitor on tele; On ASA 81mg qd, Coreg, and Statin. 5. HTN - stable 6. CKD - unchanged. Continue to monitor with the Entresto which contains an ARB. 7. DM type 2 - managed by PCP 8. Hypothyrodism - managed by PCP 9. Atypical CP - The pain aggravates with movement/palpitation to the site. Cont. to monitor. Better after brigitte-Thompson and pain meds. MAR reviewed Overall doing better. some intravascular vol. depletion. continue to watch fluids carefully. < 1-1.5 l/day. Probably back to rehab. tomorrow. F/U with me in 2 weeks.
[2018-07-27] MEDS: Carvedilol 6.25 MG TAB PO SCH (16:27)
[2018-07-27] MEDS: Pravastatin Sodium 20 MG TAB PO SCH (21:04)
[2018-07-28 02:14] LABS: Hemoglobin 10.1 g/dL (12.0-16.0); Platelet Count 174 thou/uL (130-400)
[2018-07-28 02:38] LABS: Anion Gap 15 mmol/L (10-20); BUN (Urea Nitrogen) 58 mg/dL (9.8-20.1); Calc. Creatinine Clearance 37 mL/min (70-130); Calcium 9.5 mg/dL (7.8-10.44); Carbon Dioxide 25 mmol/L (23-31); Chloride 99 mmol/L (98-107); Estimated GFR-MDRD 23; Glucose 124 mg/dL (83-110); Potassium 4.7 mmol/L (3.5-5.1); Sodium 134 mmol/L (136-145)
[2018-07-28] MEDS: Levothyroxine Sodium 100 MCG TAB PO SCH (06:07)
--- NOTE | 2018-07-28 06:47 | PDOC.EVN ---
Addendum - Attending - Attending Attestation Date/Time: 07/28/18 [id number] I personally evaluated the patient and discussed the management with Dr. Bergeron. I agree with the History, Examination, Assessment and Plan documented in her progress note with any addition or exceptions noted below. Patient reports doing well this morning. No recurrent chest pain after Flexeril trial. She has no shortness of breath. Admitted for acute on chronic CHF that has improved with Dobutamine therapy. She is now off that and her labs are overall stable, some bump in her Creatinine. Plan to discuss with cardiology if any further inpatient monitoring need or decrease in her diuretic regimen. Per yesterday's note they are anticipating discharge today.
--- NOTE | 2018-07-28 07:25 | PDOC.FM ---
- Subjective Subjective: Patient reports her SOB is a little better this AM. She continues to have a cough. She denies any chest pain, worsened swelling, N/V. - Objective MAR Reviewed: Yes Vital Signs & Weight: Vital Signs (12 hours) Temp Pulse Resp BP Pulse Ox 07/28/18 03:47 98.7 F 88 18 108/59 L 94 L 07/27/18 23:35 97.9 F 92 20 107/55 L 92 L 07/27/18 20:30 94 L 07/27/18 20:25 97.4 F L 91 20 111/57 L 94 L 07/27/18 20:00 97.4 F L 91 22 H 111/57 L 94 L Weight Admit Weight 109.996 kg Weight 107.864 kg I&O: 07/27/18 07/28/18 07/29/18 06:59 06:59 06:59 Intake Total 896.7 1025 Output Total 1175 890 Balance -278.3 135 Result Diagrams: 07/28/18 02:05 07/28/18 02:05 Phys Exam - Physical Examination Constitutional: NAD HEENT: moist MMs, sclera anicteric Respiratory: no wheezing, no rhonchi rales bilaterally Cardiovascular: RRR, no significant murmur, no rub Gastrointestinal: soft, non-tender, no distention, positive bowel sounds Musculoskeletal: pulses present, edema present (trace pedal edema) Neurological: non-focal, moves all 4 limbs Psychiatric: normal affect, A&O x 3 Dx/Plan (1) Acute on chronic systolic CHF (congestive heart failure) Code(s): I50.23 - ACUTE ON CHRONIC SYSTOLIC (CONGESTIVE) HEART FAILURE Status : Acute (2) CAD (coronary artery disease) Code(s): I25.10 - ATHSCL HEART DISEASE OF [place] CORONARY ARTERY W/O ANG PCTRS Status: Acute (3) DM II (diabetes mellitus, type II), controlled Code(s): E11.9 - TYPE 2 DIABETES MELLITUS WITHOUT COMPLICATIONS Status: Chronic (4) Hypertension Code(s): I10 - ESSENTIAL (PRIMARY) HYPERTENSION Status: Chronic (5) Hypothyroidism Code(s): E03.9 - HYPOTHYROIDISM, UNSPECIFIED Status: Chronic (6) Ischemic cardiomyopathy Code(s): I25.5 - ISCHEMIC CARDIOMYOPATHY Status: Chronic (7) Afib Code(s): I48.91 - UNSPECIFIED ATRIAL FIBRILLATION Status: Chronic (8) CKD (chronic kidney disease) stage 3, GFR 30-59 ml/min Code(s): N18.3 - CHRONIC KIDNEY DISEASE, STAGE 3 (MODERATE) Status: Chronic (9) Gout Code(s): M10.9 - GOUT, UNSPECIFIED Status: Chronic - Plan Plan: Acute HFrEF exacerbation last echo 09/2017 with EF 20-25%, diastolic dysfunction. Hx of ischemic cardiomyopathy with AICD BNP 2900 with initial edema up to hips. On home O2 of 2L. Edema now improved significantly. Breathing comfortably on home O2. - Cards on board, appreciate recs. - Was initially on IV lasix, now transitioned to PO lasix - Previously on dobutamine gtt, but this has been discontinued by cardiology - Fluid restrict to 1500mL - Strict I/O's and daily weights Hypokalemia, resolved -monitor, replace as needed Atypical chest pain, resolved CXR showed no cause for pain Chest pain has recurred, it is reproducible on palpation, so unlikely cardiac source. Appears pleuritic vs MSK. - s/p flexeril and bengay cream CKD3/4 - slightly worsened this AM, will monitor closely and discuss diuretic dose with cardiology HLD - continue statin Hypothyroidism - continue synthroid Chronic anemia, macrocytic Hgb stable. B12 normal on previous check and iron deficient. - continue home iron Gout - continue home allopurinol Diabetes Mellitus, Type 2, well controlled Last A1c 6.2 in 09/2017. Not on any meds. - continue home gabapentin. History of atrial fibrillation - paced, continue home amiodarone - Switched from warfarin to eliquis. History of [place] - continue home ASA Code: DNR VTE Ppx: eliquis Dispo: Anticipate d/c to [facility] today if BP's remain stable
--- NOTE | 2018-07-28 09:17 | PDOC.CTH ---
Cardiology Progress Note - Subjective The pt seen and examined. No overnight events. No cardiac complaints. No pain to Rt chest - Objective Vital Signs Temp Pulse Resp BP Pulse Ox 07/28/18 08:01 97.6 F 94 14 135/80 96 07/28/18 03:47 98.7 F 88 18 108/59 L 94 L 07/27/18 23:35 97.9 F 92 20 107/55 L 92 L Admit Weight 242 lb 8 oz Weight 237 lb 12.8 oz 07/27/18 07/28/18 07/29/18 06:59 06:59 06:59 Intake Total 896.7 1025 Output Total 1175 890 Balance -278.3 135 - Physical Examination General/Neuro: alert & oriented x3 Neck: no JVD present Lungs: other: (diminished at bases) Heart: RRR Abdomen: soft Extremities: other: (2-3+ pitting BLE edema) - Telemetry Telemetry Rhythm: V paced - Labs Result Diagrams: 07/28/18 02:05 07/28/18 02:05 Troponin/CKMB CK-MB (CK-2) 0.5 ng/mL (0-6.6) 07/17/18 23:10 Troponin I 0.042 ng/mL (< 0.028) H 07/17/18 23:10 - Assessment/Plan 1. Acute on chronic systolic HF - stable off Dobutamine. Cont. Lasix 40mg PO BID; resume Coreg 3.125mg in AM and 6.25mg in PM; On Entresto for CMY/CHF. The BNP will be elevated with Entresto. 2. Ischemic CMY with hx of AICD - AICD interrogation showed normal function; 3. 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 sinus rhythm. On Amiodarone, Bblocker and Eliquis. 4. CAD with hx of [place] - stable; cont. to monitor on tele; On ASA 81mg qd, Coreg, and Statin. 5. HTN - stable 6. CKD - slightly worsening possible 2/2 intravascular vol. depletion. Continue to monitor with the Entresto which contains an ARB. 7. DM type 2 - managed by PCP 8. Hypothyrodism - managed by PCP 9. Atypical CP - The pain aggravates with movement/palpitation to the site. Cont. to monitor. Better after brigitte-Thompson and pain meds. MAR reviewed * Overall doing better. some intravascular vol. depletion. continue to watch fluids carefully. < 1-1.5 l/day. * F/U with Dr Aquino' office within 3 weeks. pt. seen and eval. by me. i agree with the A/P by the SOLVENT STATION ATTENDANT. The renal function appears clightly worse. Likely due to intravascular vol. depletion. Chest clear. RRR. /HAT STOCK LAMINATING MACHINE OPERATOR. Okay to transfer pt. backto rehab. Continue to f/u with CHF clinic. I will see her in 2-3 weeks in the office. [email or web address] Review of Systems - Review of Systems Constitutional: reports: no symptoms reported EENTM: reports: no symptoms reported Respiratory: reports: no symptoms reported Cardiac (ROS): reports: no symptoms reported ABD/GI: reports: no symptoms reported : reports: no symptoms reported
[2018-07-28] MEDS: Allopurinol 100 MG TAB PO SCH (09:50)
[2018-07-28] MEDS: Potassium Chloride 20 MEQ TAB PO SCH (09:50)
[2018-07-28] MEDS: Amiodarone 200 MG TAB PO SCH (09:50)
[2018-07-28] MEDS: Furosemide 40 MG TAB PO SCH ×2 (09:51→13:55)
[2018-07-28] MEDS: Aspirin Chewable 81 MG TAB PO SCH (09:51)
[2018-07-28] MEDS: Gabapentin 100 MG CAP PO SCH (09:51)
[2018-07-28] MEDS: Docusate 100 MG CAP PO SCH (09:51)
[2018-07-28] MEDS: Carvedilol 3.125 MG TAB PO SCH (09:51)
[2018-07-28] MEDS: Ascorbic Acid 500 mg Chewable Tablet PO SCH (09:51)
[2018-07-28] MEDS: Nystatin Powder 15 GM BOT TOP SCH (09:52)
[2018-07-28] MEDS: Apixaban 2.5 MG TAB PO SCH (09:58)
[2018-07-28 12:03] VITALS: BP 114/58; TEMP 97.5
[2018-07-28] MEDS: Acetaminophen 325 MG TAB PO PRN (13:54)
--- NOTE | 2018-07-29 06:11 | DIS ---
DATE OF ADMISSION: 07/17/2018 DATE OF DISCHARGE: 07/28/2018 RESIDENT: Aimee Bergeron MD. CONSULTS: Dr. Aquino, Cardiology. PROCEDURES: None. PRIMARY DIAGNOSES: 1. Acute heart failure with reduced ejection fraction exacerbation. 2. Atypical chest pain. 3. Hypokalemia. SECONDARY DIAGNOSES: 1. Diabetes type 2. 2. Hypertension. 3. Hypothyroidism. 4. Ischemic cardiomyopathy. 5. Atrial fibrillation. 6. Chronic kidney disease, 3. 7. Gout. 8. Chronic macrocytic anemia. DISCHARGE MEDICATIONS: 1. Allopurinol 200 mg p.o. q.a.m. 2. Amiodarone 100 mg p.o. daily. 3. Ascorbic acid 1000 mg p.o. daily. 4. Aspirin 81 mg p.o. daily. 5. Docusate 100 mg p.o. daily. 6. Gabapentin 900 mg p.o. b.i.d. 7. Iron 27 mg p.o. daily. 8. Synthroid 300 mcg p.o. q.a.m. 9. Nystatin topical b.i.d. under abdomen and breasts. 10. Protonix 40 mg p.o. daily. 11. Pravastatin 20 mg p.o. at bedtime. 12. Eliquis 2.5 mg p.o. b.i.d. 13. Carvedilol 3.125 mg p.o. q.a.m. and 6.25 mg p.o. at bedtime. 14. Furosemide 40 mg p.o. b.i.d. 15. Potassium chloride 40 mEq p.o. q.a.m. 16. Entresto 97/103 mg one tablet p.o. b.i.d. 17. Tramadol 50 mg p.o. q.6 hours p.r.n. pain. Discontinued medications: Warfarin. HISTORY OF PRESENT ILLNESS AND HOSPITAL COURSE: This is an 82-year-old female with past medical history of heart failure with reduced ejection fraction with an EF of 20% to 25%, status post AICD placement, who presented fluid overloaded with some atypical chest pain. The patient had an initial BNP of 2900 with edema up to her hips. The patient was breathing comfortably on her home oxygen. She was diuresed with initially IV Lasix and then dobutamine drip, and then later transitioned to oral Lasix, the dobutamine drip was able to be stopped. The patient was fluid restricted to 1500 mL, which was recommended to be continued per Cardiology. The patient did have some hypokalemia that resolved with replacement. The patient has atypical chest pain that was right-sided, reproducible to palpation, resolved with Flexeril and Bengay cream. The patient had no EKG changes. The patient has CKD 3 that was for the most part stable, during her admission, she did have little bit of bump in her creatinine due to the diuretics; however, this will be continued to be monitored outpatient. The patient's troponin was slightly elevated at 0.043, however, trended down to 0.037. The patient was transitioned from warfarin to Eliquis for better control due to her atrial fibrillation. At the time of discharge, the patient appeared a little bit intravascularly depleted and had trace edema on her legs that was significantly improved from admission. The patient had no further chest pain. The patient was breathing comfortably on her home oxygen regimen. DISPOSITION: Stable currently, however, guarded prognosis due to the severity of her heart failure. DISCHARGE INSTRUCTIONS: 1. Location: Intermediate. 2. Diet: Heart healthy diabetic diet with fluid restriction to 1500 mL. 3. Activity: As tolerated. 4. Followup: Follow up with Dr. Dumont in 1 to [address] Aquino within 2 to 3 weeks. Job ID: [id number]
== END 2018-07-28 16:00 | DRG 291 ==
LOC: ERS 11:06 → 2NO 14:30
PROVIDERS: ADMIT Family Medicine; ATTEND Family Medicine
DX: I13.0 Hypertensive heart and chronic kidney disease with heart failure and stage 1 through stage 4 chronic kidney disease, or unspecified chronic kidney disease (principal); I50.43 Acute on chronic combined systolic (congestive) and diastolic (congestive) heart failure; N18.4 Chronic kidney disease, stage 4 (severe); J96.10 Chronic respiratory failure, unspecified whether with hypoxia or hypercapnia; I24.8 Other forms of acute ischemic heart disease; Z66 Do not resuscitate; I25.10 Atherosclerotic heart disease of native coronary artery without angina pectoris; M10.9 Gout, unspecified; E11.22 Type 2 diabetes mellitus with diabetic chronic kidney disease; D53.9 Nutritional anemia, unspecified; E03.9 Hypothyroidism, unspecified; I25.5 Ischemic cardiomyopathy; E66.01 Morbid (severe) obesity due to excess calories; E78.5 Hyperlipidemia, unspecified; I48.0 Paroxysmal atrial fibrillation; Z91.048 Other nonmedicinal substance allergy status; Z88.6 Allergy status to analgesic agent; Z79.82 Long term (current) use of aspirin; Z79.01 Long term (current) use of anticoagulants; Z90.49 Acquired absence of other specified parts of digestive tract; I25.2 Old myocardial infarction; Z86.73 Personal history of transient ischemic attack (TIA), and cerebral infarction without residual deficits; Z87.891 Personal history of nicotine dependence; Z68.38 Body mass index [BMI] 38.0-38.9, adult
CPT/HCPCS: 36415; 36416; 71045; 80048; 80053; 82553; 83735; 83880; 84484; 85014; 85018; 85025; 85049; 85610; 85730; 93005; 93010; 94760; 96374; J1250; J1940; J2270